=== PATIENT | female | born 1950 | race Caucasian/White ===

== ENCOUNTER 2023-03-09 08:29 | Outpatient (OUT) | payer MEDICARE, SELFPAY ==
--- NOTE | 2023-03-09 08:33 | MM_ITS ---
Patient: ZULLY HUANG Exam Date: 03/09/2023 : 1950 Gender:F Ordering : DR. JOSE GUERRERO . Admission #: [id number] Family : Order #: [id number] CLICK HERE TO VIEW EXAM RADIOLOGY REPORT PROCEDURE: MM TOMOSYNTHESIS SCREENING BI COMPARISON: MG MAMM SCREEN 3D [facility] CAD, 03/08/2022. MG MAMM SCREEN [facility] W CAD, 07/27/2019. MG MAMM SCREEN [facility] W CAD, 07/24/2018. MG MAMM [facility] SCRN W CAD DIG, 10/30/2010. INDICATIONS: Screening Calculator Name NCI Breast Cancer Risk Assessment Tool 5 Year Breast Cancer Risk 1.40% Lifetime Breast Cancer Risk 3.00% Personal Breast Cancer No Personal Ovarian Cancer No Treatments None Family Cancers Aunt-maternal with breast cancer at age 58. LOCATION: [facility] BREAST COMPOSITION: Scattered areas fibroglandular density. FINDINGS: DIAGNOSTIC CATEGORY 2--BENIGN FINDING: RIGHT BREAST: No significant suspicious finding. Scattered benign-appearing calcifications are present. No significant change has occurred. LEFT BREAST: No significant suspicious finding. Scattered benign-appearing calcifications are present. No significant change has occurred. RECOMMENDATIONS: ROUTINE MAMMOGRAM AND CLINICAL EVALUATION IN 12 MONTHS. PLEASE NOTE: A NORMAL MAMMOGRAM DOES NOT EXCLUDE THE POSSIBILITY OF BREAST CANCER. A CLINICALLY SUSPICIOUS PALPABLE LUMP SHOULD BE BIOPSIED. Dictated by: Arron Little M.D. on 03/09/2023 at 13:29 Approved by: Arron Little M.D. on 03/09/2023 at 13:31
== END 2023-03-09 08:30 | disposition home or self-care (01) ==
LOC: MAMMO 08:29
PROVIDERS: PCP Family Medicine; Visit Provider Family Medicine
DX: Z12.31 Encounter for screening mammogram for malignant neoplasm of breast (principal); Z80.3 Family history of malignant neoplasm of breast
CPT/HCPCS: 77063; 77067

== ENCOUNTER 2023-08-18 14:59 | Outpatient (OUT) | payer MEDICARE, SELFPAY ==
--- NOTE | 2023-08-18 15:04 | XR_ITS ---
[address] [address] Patient Name: ZULLY HUANG MRN: [id number] date: 1950 Sex: F Assigned Patient Location: [facility] Current Patient Location: Accession/Order Number: [id number] Exam Date: 08/18/2023 15:14 Report Date: 08/19/2023 10:28 At the request of: JUSTIN SANCHEZ Procedure: XR cervical spine 5V EXAM: XR cervical spine 5V HISTORY: neck pain, mid back pain COMPARISON: None. TECHNIQUE: 5 views Findings/impression: Retrolisthesis of C4 over C5 and C5 over C6 by 2 mm. Maintained vertebral body heights. Multilevel endplate degenerative changes, disc disease, and facet arthropathy of C5-C7. No acute fracture. Unremarkable soft tissues. Electronically authenticated by: MARTIN GÓMEZ Date: 08/19/2023 10:28
--- NOTE | 2023-08-18 15:05 | XR_ITS ---
[address] [address] Patient Name: ZULLY HUANG MRN: [id number] date: 1950 Sex: F Assigned Patient Location: [facility] Current Patient Location: [facility] Accession/Order Number: [id number] Exam Date: 08/18/2023 15:14 Report Date: 08/19/2023 18:26 At the request of: JUSTIN SANCHEZ Procedure: XR thoracic spine 2V EXAM: XR thoracic spine 2V HISTORY: neck pain, mid back pain COMPARISON: None. FINDINGS/IMPRESSION: 1. No acute fracture or dislocation 2. Moderate degeneration of the thoracic spine disc spaces, more prominent inferiorly. 3. Vertebral body height is preserved. 4. Upper abdominal bowel gas pattern is nonspecific and nonobstructive. 5. Cholecystectomy. Electronically authenticated by: DAYSI SAWANT Date: 08/19/2023 18:26
== END 2023-08-18 15:00 | disposition home or self-care (01) ==
LOC: RAD 15:00
PROVIDERS: PCP Family Medicine; Visit Provider Nurse Practitioner
DX: M54.2 Cervicalgia (principal); M54.6 Pain in thoracic spine
CPT/HCPCS: 72050; 72070

== ENCOUNTER 2023-08-31 09:28 | Outpatient (RCR) | payer MEDICARE, SELFPAY | END 2023-09-15 15:57 | disposition home or self-care (01) | LOC: PT 09:28 | PROVIDERS: PCP Family Medicine; Visit Provider Nurse Practitioner | DX: M54.2 Cervicalgia (principal); R93.7 Abnormal findings on diagnostic imaging of other parts of musculoskeletal system | CPT/HCPCS: 97110; 97161 ==

== ENCOUNTER 2023-09-05 09:39 | Outpatient (OUT) | payer MEDICARE, SELFPAY ==
--- NOTE | 2023-09-05 09:41 | MR_ITS ---
[address] [address] Patient Name: ZULLY HUANG MRN: [id number] date: 1950 Sex: F Assigned Patient Location: MRI Current Patient Location: MRI Accession/Order Number: [id number] Exam Date: 09/05/2023 10:00 Report Date: 09/05/2023 11:53 At the request of: JUSTIN SANCHEZ Procedure: MR cervical spine wo con EXAM: MR cervical spine wo con, MR thoracic spine wo con CLINICAL INDICATION: Dorsalgia M54.9, abnormal findings on imaging R93.7 COMPARISON: Cervical and thoracic spine radiographs 08/18/2023. TECHNIQUE/PROTOCOL: Standard noncontrast cervical and thoracic spine protocol MR performed (Sagittal STIR, T1, T2, axial gradient, T2-weighted images). FINDINGS: Pedicles: Congenitally shortened. Spinal Cord: Normal in caliber and signal. Epidural Space: Mild dorsal epidural lipomatosis from T10 to T12. Alignment: Normal craniocervical junction. Straightening of the physiologic cervical lordosis could relate at least part to patient positioning. Marrow Signal: Normal. Vertebral Body Heights: Maintained. Paraspinal Soft Tissues: Normal. Neck Soft Tissues: Normal. Spondylotic Changes: Multilevel spondylotic changes include diffuse disc desiccation and varying degrees of intervertebral disc height loss, osteophytic ridging, and facet/uncovertebral joint hypertrophy. Several small Schmorl's nodes throughout the thoracic spine. Small disc bulges at T8-T9, T9-T10, T10-T11, T11-T12, and T12-L1 mildly indent the ventral thecal sac. No high-grade spinal canal or foraminal narrowing at any thoracic level. C2-C3: No disc bulge or herniation. No high-grade spinal canal foraminal narrowing. C3-C4: Slight disc osteophyte complex indents the ventral thecal sac. Mild spinal canal narrowing. No high-grade foraminal narrowing. C4-C5: Small disc osteophyte complex indents the ventral thecal sac and slightly flattens the ventral spinal cord surface. Mild spinal canal narrowing. Advanced right and moderate left foraminal narrowing is contributed to by uncovertebral and facet joint hypertrophy. C5-C6: Small disc osteophyte complex indents the ventral thecal sac. Moderate spinal canal narrowing. Advanced bilateral foraminal narrowing is contributed to by uncovertebral and facet joint hypertrophy. C6-C7: Disc osteophyte complex indents the ventral thecal sac and flattens the ventral spinal cord surface. Moderate spinal canal narrowing. Advanced bilateral foraminal narrowing is contributed to by uncovertebral and facet joint hypertrophy. C7-T1: No disc bulge or herniation. No high-grade spinal canal or foraminal narrowing. Mild bilateral facet hypertrophy. MR/MR cervical spine wo con IMPRESSION: 1. Multilevel cervicothoracic spondylotic changes without high-grade spinal canal narrowing at any level. These are superimposed on congenitally shortened cervical pedicles. 2. Spinal canal narrowing is at most moderate at C5-C6. 3. Foraminal narrowing is advanced on the right at C4-C5 as well as bilaterally at C5-C6 and C6-C7, contributed to by uncovertebral and facet joint hypertrophy. Electronically authenticated by: MALU MAST Date: 09/05/2023 11:53
--- OUTSIDE RECORDS SUMMARY | 2023-09-05 09:42 | XMS_ITS | CCD ---
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 depression with risk score 0, negative findings. Patient has been reminded to notify the provider if there would be a change or concerns with symptoms with fear, unable to sleep, worrying too much or feeling down and/or sad with lost of interest with daily activities. Will continue to monitor with screening yearly during Medicare wellness visits. 2. Other problems related to lifestyle (Z72.89: Other problems related to lifestyle) Information provided and discussed with CDC recommendation that everyone born from 7272[birth year]019 get tested for Hepatitis C. This is also referred to as baby boomers and are 5 times more likely to be at risk. Transmission of Hepatitis C was at its highest. Medicare does cover a once in a lifetime testing if a patient is non-symptomatic. Blood work has been ordered, will review results with PCP. 3. HTN (hypertension) (I10: Essential (primary) hypertension) Patient is taking losartan-hctz daily as directed. Does monitor BP pressure at home. HTN stoplight reviewed with BP goal to be <140/90. Reviewed different factors that can alter blood pressure readings. Education handout provided with s/s to monitor for and report to provider. Patient is encouraged to increase portions of fruit, vegetables, fiber and increase exercise as much as tolerable. Reviewed importance with monitoring foods high in salt content and encouraged to limit intake, if unsure encouraged to discuss with their PCP. Encouraged to eat more chicken, fish and lean white meats and limits red meats in diet. Discussed importance with keeping BP under good control to reduce CVA risk factors. CMP completed in office today. Will continue to f/u with PCP during office visits and as needed. 4. Pure hypercholesterolemia (E78.00: Pure hypercholesterolemia, unspecified) Reviewed healthy lifestyle with low fat diet and exercise regimen. When you are overweight our body produces more lipids. Risk als (more content not included)... [facility] Comment on above: Result Comment: Elec tronically Signed By: Liana Simental\.br\Date and Time Signed: 04/27/23 09:12 EDT\.br\Electronically Co-Signed By: Mike Chavez\.br\Date and Time Co-Signed: 04/26/23 11:38 EDT Patient Correspondenceon Patient Correspondence [id number] :127 [facility] Ambulatory Visit Summaryon 0 04-26-2023 Ambulatory Visit Summary STAS HUANG Annette :1950 Visit Date:04/26/2023 Ambulatory Visit Instructions Your Diagnosis Annual visit for general adult medical examination without abnormal findings Other problems related to lifestyle HTN (hypertension) Pure hypercholesterolemia GERD (gastroesophageal reflux disease) Morbid obesity Adult BMI 38.0-38.9 kg/sq m Your Care Team Attending Physician - Daquan Hager MD Primary Care Physician - Daquan Hager MD. This Is Your Medications List Non-Formulary Medication (Misc Medication) aspirin (Aspir-Low) atorvastatin (atorvastatin 10 mg Tab) betamethasone topical (betamethasone Top valerate 0.1% Crm 15 gram) cholecalciferol (Vitamin D3 5000 intl units (125 mcg) oral tab) cyclobenzaprine (cyclobenzaprine 10 mg Tab) diclofenac (diclofenac sodium 75 mg Oral EC Tab) hydrochlorothiazide-los shorty (hydrochlorothiazide-lo sartan 12.5 mg-100 mg oral tablet) multivitamin (Multi Vitamin+) Procedures Performed Colonoscopy (2021), Cataract surgery, Cholecystectomy, Glaucoma surgery, Hysterectomy, KAZ BSO - Total abdominal hysterectomy and bilateral salpingo-oophorectomy. Discharge Vitals Heart Rate (Peripheral) 68 Blood Pressure 136/80 Height 154 cm Height 61 in Weight 91.4 kg Weight 201.08 lb BMI 38.54 What to do next Scheduled Follow-Up Appointments Tuesday 9:30 AM EDT Where: [facility] Auth for Release of Medical Recordson 04-26-2023 Auth for Release of Medical Records [id number] :127 Normal [facility] CHEMISTRYOrdered By: SYSTEM SYSTEM on 04-26-2023 Albumin [Mass/Vol] 3.6 g/dL Normal 3.3 - 5.0 gm/dL [facility] Albumin/Globulin [Mass ratio] 1.1 {ratio} Normal 1.1 - 2.2 [facility] ALP [Catalytic activity/Vol] 68 [iU]/d Normal 21 - 98 Int._Unit/L [facility] ALT No additional P-5'-P [Catalytic activity/Vol] 20 [iU]/d Normal 6 - 46 Int._Unit/L [facility] Anion gap [Moles/Vol] 11 mmol/L Normal 6 - 16 mEq/L [facility] AST [Catalytic activity/Vol] 27 [iU]/d Normal 5 - 43 Int._Unit/L [facility] Bilirubin [Mass/Vol] 0.5 mg/dL Normal 0.0 - 1 .1 mg/dL [facility] Calcium [Mass/Vol] 9.0 mg/dL Normal 8.9 - 11. 1 mg/dL [facility] Chloride [Moles/Vol] 104 mmol/L Normal 101 - 1 11 mmol/L [facility] Cholesterol [Mass/Vol] 138 mg/dL Normal 120 - 200 mg/dL [facility] Cholesterol in HDL [Mass/Vol] 54 mg/dL Invalid Interpretation Code [facility] Cholesterol in LDL [Mass/Vol] 69 mg/dL Normal <=129mg/dL [facility] Cholesterol in VLDL [Mass/Vol] 20 mg/dL Normal 7 - 40 mg/dL [facility] CO2 [Moles/Vol] 26 mmol/L Normal 21 - 31 mmol/L [facility] Creatinine [Mass/Vol] 0.9 mg/dL Normal 0.5 - 1.3 mg/dL [facility] GFR/1.73 sq M.predicted among non-blacks MDRD (S/P/Bld) [Vol rate/Area] 67 mL/min/1.73 m2 Normal >=59mL/min/1 .73 m2 [facility] Chem S Globulin (S) [Mass/Vol] 3.4 g/dL Normal 1.4 - 4.0 gm/dL [facility] Glucose [Mass/Vol] 91 mg/dL Normal 55 - 199 mg/dL [facility] Potassium [Moles/Vol] 3.9 mmol/L Normal 3.5 - 5.3 mmol/L [facility] Protein [Mass/Vol] 7.0 g/dL Normal 6.0 - 7.8 gm/dL [facility] Sodium [Moles/Vol] 137 mmol/L Normal 135 - 145 mmol/L [facility] Triglyceride [Mass/Vol] 98 mg/dL Normal <=149mg/dL [facility] Remisol Urea nitrogen [Mass/Vol] 14 mg/dL Normal 5 - 21 mg/dL [facility] Remisol Urea nitrogen/Creatinine [Mass ratio] 16 mg/mg Normal 10 - 20 [facility] Remisol CMPon 04-26-2023 Albumin [Mass/Vol] 3.6 g/dL Normal 3.3-5.0 [facility] Comment on above: Performed By: #### 1 [id number], 2244794, [id number], 7038820, [id number] ####[facility] [address] [place] [address] Albumin/Globulin (S) [Mass conc ratio] 1.1 Normal 1.1-2.2 [facility] Comment on above: Performed By: #### 1 3793852, 9371467, [id number], 4054184, [id number] ####[facility] [address] [place] [address] ALP [Catalytic activity/Vol] 68 Int._Unit/L Normal 21-98 [facility] Comment on above: Performed By: #### 1 3950212, 3948557, [id number], 1379861, [id number] ####[facility] [address] [place] [address] ALT No additional P-5'-P [Catalytic activity/Vol] 20 Int._Unit/L Normal 6-46 [facility] Comment on above: Performed By: #### 1 3295931, 9576798, [id number], 1724218, [id number] ####[facility] [address] [place] [address] Anion gap [Moles/Vol] 11 mmol/L Normal 6-16 [facility] Comment on above: Performed By: #### 1 3006872, 9808573, [id number], 1738216, [id number] ####[address] [place] [address] AST [Catalytic activity/Vol] 27 Int._Unit/L Normal 5-43 [facility] Comment on above: Performed By: #### 1 9981616, 8886093, [id number], 3420992, [id number] ####[address] [place] [address] Bilirubin [Mass/Vol] 0.5 mg/dL Normal 0.0-1.1 [facility] Comment on above: Performed By: #### 1 5652536, 3963729, [id number], 3264880, [id number] ####[address] [place] [address] Calcium [Mass/Vol] 9.0 mg/dL Normal 8.9-11.1 [facility] Comment on above: Performed By: #### 1 9413448, 1432067, 6333141688, 6120476, [id number] ####[facility] [address] [place] [address] Chloride [Moles/Vol] 104 mmol/L Normal 101-111 [facility] Comment on above: Performed By: #### 1 8935719, 6251067, 7262756330, 3474211, [id number] ####[facility] [address] [place] [address] CO2 [Moles/Vol] 26 mmol/L Normal 21-31 [facility] Comment on above: Performed By: #### 1 7416064, 6747063, 0747902379, 7125370, [id number] ####[facility] [address] [place] [address] Creatinine [Mass/Vol] 0.9 mg/dL Normal 0.5-1.3 [facility] Comment on above: Performed By: #### 1 1044580, 3683041, [id number], 7479383, [id number] ####[facility] [address] [place] [address] Globulin (S) [Mass/Vol] 3.4 g/dL Normal 1.4-4.0 [facility] Comment on above: Performed By: #### 1 7588193, 6517813, 2368713514, 6767423, 2810181078 ####[facility] [address] [place] [address] Glucose [Mass/Vol] 91 mg/dL Normal 55-199 [facility] Comment on above: Result Comment: If t his glucose result represents a fasting glucose, interpretation should refer to the following reference range: 55-99 mg/dL Performed By: #### 1 4520077, 0476931, 2044741214, 9702387, [id number] ####[facility] [address] [place] [address] Potassium [Moles/Vol] 3.9 mmol/L Normal 3.5-5.3 [facility] Comment on above: Performed By: #### 1 3815631, 5284010, 5237253487, 0379127, 3403696124 ####[facility] [address] [place] [address] Protein [Mass/Vol] 7.0 g/dL Normal 6.0-7.8 [facility] Comment on above: Performed By: #### 1 7552087, 5197205, 3615384631, 1002712, 7319462530 ####[facility] [address] [place] [address] Sodium [Moles/Vol] 137 mmol/L Normal 135-145 [facility] Comment on above: Performed By: #### 1 8745512, 6466192, 6829227693, 9328945, [id number] ####[facility] [address] [place] [address] Urea nitrogen [Mass/Vol] 14 mg/dL Normal 5-21 [facility] Comment on above: Performed By: #### 1 2972099, 1576583, 3705052886, 4744585, [id number] ####[facility] [address] [place] [address] Urea nitrogen/Creatinine [Mass ratio] 16 No Units Normal 10-20 [facility] Comment on above: Performed By: #### 1 6870299, 3987934, 0835592799, 2514836, [id number] ####[facility] [address] [place] [address] Lipid Panelon 04-26-2023 Cholesterol [Mass/Vol] 138 mg/dL Normal 120-200 [facility] Comment on above: Performed By: #### 1 7422289, 3062804, 1713955368, 2532512, 9566247821 ####[facility] [address] [place] [address] Cholesterol in HDL [Mass/Vol] 54 mg/dL Invalid Interpretation Code [facility] Comment on above: Result Comment: HDL > or equal to 60 mg/dL: Low cardiovascular risk HDL < 40 mg/dL : High cardiovascular risk Performed By: #### 1 9867474, 8224462, 4303730324, 2405980, [id number] ####[facility] [address] [facility] [place] [place] [address] Cholesterol in LDL [Mass/Vol] 69 mg/dL Normal <=129 [facility] Comment on above: Performed By: #### 1 6468399, 2278984, 8277471746, 8563826, [id number] ####[facility] [address] [facility] [place] [address] Cholesterol in VLDL [Mass/Vol] 20 mg/dL Normal 7-40 [facility] Comment on above: Performed By: #### 1 3186646, 0328813, 2324437624, 0482795, [id number] ####[facility] [address] [place] [address] Triglyceride [Mass/Vol] 98 mg/dL Normal <=149 [facility] Comment on above: Performed By: #### 1 7263147, 2675636, 3091105231, 9157867, 4585429975 ####[facility] [address] [place] [address] Patient Educationon 04-26-20 23 Patient Education Caregiving Fall Prevention in the Home, Adult Falls can cause injuries and affect people of all ages. There are many simple things that you can do to make your home safe and to help prevent falls. Ask for help when making these changes, if needed. What actions can I take to prevent falls? General instructions ? Use good lighting in all rooms. Replace any light bulbs that burn out, turn on lights if it is dark, and use night-lights. ? Place frequently used items in irzp-yj-jncvj places. Lower the shelves around your home if necessary. ? Set up furniture so that there are clear paths around it. Avoid moving your furniture around. ? Remove throw rugs and other tripping hazards from the floor. ? Avoid walking on wet floors. ? Fix any uneven floor surfaces. ? Add color or contrast paint or tape to grab bars and handrails in your home. Place contrasting color strips on the first and last steps of staircases. ? When you use a stepladder, make sure that it is completely opened and that the sides and supports are firmly locked. Have someone hold the ladder while you are using it. Do not climb a closed stepladder. ? Know where your pets are when moving through your home. What can I do in the bathroom? ? Keep the floor dry. Immediately clean up any water that is on the floor. ? Remove soap buildup in the tub or shower regularly. ? Use nonskid mats or decals on the floor of the tub or shower. ? Attach bath mats securely with double-sided, nonslip rug tape. ? If you need to sit down while you are in the shower, use a plastic, nonslip stool. ? Install grab bars by the toilet and in the tub and shower. Do not use towel bars as grab bars. What can I do in the bedroom? ? Make sure that a bedside light is easy to reach. ? Do not use oversized bedding that reaches the floor. ? Have a firm chair that has side arms to use for getting dressed. What can I do in the kitchen? ? Clean up any spills right away. ? If you need to reach for something above you, use a sturdy step stool that has a grab bar. ? Keep electrical cables out of the way. ? Do not use floor cambodian or wax that makes floors slippery. If you must use wax, make sure that it is non-skid floor wax. What can I do with my stairs? ? Do not leave any items on the stairs. ? Make sure that you have a light switch at the top and the bottom of the stairs. Have them installed if you do not have them. ? Make sure that there are handrails on both sides of the stairs. Fix handrails that are broken or loose. Make sure that handrails are as long as the staircases. ? Install non-slip stair treads on all stairs in your home. ? Avoid having throw rugs at the top or bottom of stairs, or secure the rugs with carpet tape to prevent them from moving. ? Choose a carpet design that does not hide the edge of steps on the stairs. ? Check any carpeting to make sure that it is firmly attached to the stairs. Fix any carpet that is loose or worn. What can I do on the outside of my home? ? Use bright outdoor lighting. ? Regularly repair the edges of walkways and driveways and fix any cracks. ? Remove high doorway thresholds. ? Trim any shrubbery on the main path into your home. ? Regularly check that handrails are securely fastened and in good repair. Both sides of all steps should have handrails. ? Install guardrails along the edges of any raised decks or porches. ? Clear walkways of debris and clutter, including tools and rocks. ? Have leaves, snow, and ice cleared regularly. ? Use sand or salt on walkways during winter months. ? In the garage, clean up any spills right away, including grease or oil spills. What other actions can I take? ? Wear closed-toe shoes that fit well and support your feet. Wear shoes that have rubber soles or low heels. ? Use mobility aids as needed, such as canes, walkers, scooters, and crutches. ? Review your medicines with your health care provider. Some medicines can cause dizziness or changes in blood pressure, which increase your risk of falling. Talk with your health care provider about other ways that you can decrease your risk of falls. This may include working with a physical therapist or strainer tender to improve your strength, balance, and endurance. Where to find more information ? Centers for Disease Control and Prevention, [place]: www.cdc.gov ? National [place] on Aging: www.celio.nih.gov Contact a health care provider if: ? You are afraid of falling at home. ? You feel weak, drowsy, or dizzy at home. ? You fall at home. Summary ? There are many simple things that you can do to make your home safe and to help prevent falls. ? Ways to make your home safe include removing tripping hazards and installing grab bars in the bathroom. ? Ask for help when making these changes in your home. This information is not intended to replace advice given to you by your health ca (more content not included)... Normal [facility] Screenson 04-26-2023 Screens [id number] D:127 Normal [facility] eGFRon 04-26-2023 GFR/1.73 sq M.predicted among non-blacks MDRD (S/P/Bld) [Vol rate/Area] 67 mL/min/1.73 m2 Normal >=59 [facility] Comment on above: Order Comment: Order added by Discern Expert. Result Comment: Panel Beater kasandra kidney disease could be indicated at eGFR's of less than 60 mL/min/1.73m2. Kidney failure is indicated at less than 15 mL/min/1.73m2. Performed By: #### 1 8227837, 7815453, [id number], 6773961, [id number] ####[facility] [address] [place] [address] Outside Mammographyon 2022 Outside Mammography [id number] D:127 Normal [facility] Ambulatory Visit Summaryon 0 11-15-2022 Ambulatory Visit Summary STAS HUANG :1950 Visit Date:11/15/2022 Ambulatory Visit Instructions Your Diagnosis BMI 40.0-44.9, adult Your Care Team Attending Physician - Feliciano CENTENO, Liana Lynn Primary Care Physician - PAUL MCINYTRE, YOLANDA Sánchez This Is Your Medications List atorvastatin (atorvastatin 10 mg Tab) betamethasone topical (betamethasone Top valerate 0.1% Crm 15 gram) cholecalciferol (Vitamin D3 5000 intl units (125 mcg) oral tab) cyclobenzaprine (cyclobenzaprine 10 mg Tab) diclofenac (diclofenac sodium 75 mg Oral EC Tab) hydrochlorothiazide-los shorty (hydrochlorothiazide-lo sartan 12.5 mg-100 mg oral tablet) losartan (losartan 100 mg Tab) omeprazole (omeprazole 20 mg Cap-DR) Procedures Performed Colonoscopy (2021), Cholecystectomy, Hysterectomy, KAZ BSO - Total abdominal hysterectomy and bilateral salpingo-oophorectomy. Discharge Vitals Heart Rate (Peripheral) 69 Respiratory Rate 16 Blood Pressure 136/80 Height 156.46 cm Height 62 in Weight 100.8 kg Weight 221.76 lb BMI 41.18 Medications What How Much When Instructions Unchanged atorvastatin (atorvastatin 10 mg Tab) 1 Tablets By Mouth Every day Unchanged betamethasone topical (betamethasone Top valerate 0.1% Crm 15 gram) 1 Application Topical 2 times a day Unchanged cholecalciferol (Vitamin D3 5000 intl units (125 mcg) oral tab) By Mouth Every day Unchanged cyclobenzaprine (cyclobenzaprine 10 mg Tab) 1 Tablets By Mouth 3 times a day as needed for for spasm Unchanged diclofenac (diclofenac sodium 75 mg Oral EC Tab) 1 Tablets By Mouth 2 times a day Unchanged hydrochlorothiazide-los shorty (hydrochlorothiazide-lo sartan 12.5 mg-100 mg oral tablet) 1 Tablets By Mouth Every day Unchanged losartan (losartan 100 mg Tab) 1 Tablets By Mouth At bedtime 1/ 2- 1 at bedtime Unchanged omeprazole (omeprazole 20 mg Cap-DR) 1 Capsules By Mouth Every day Medications and Immunizations Administered Not Given influenza virus vaccine, inactivated, Postpone due to refusal SARS-CoV-2 mRNA (tozinameran 5y-11y) vac, Postpone due to refusal Allergies Reglan (Unknown) Lipitor (Unknown) Mobic (Unknown) penicillin (Unknown) Problems Ongoing - Any problem that you are currently receiving treatment for. Fatigue GERD (gastroesophageal reflux disease) HTN (hypertension) Obstipation Pure hypercholesterolemia Normal [facility] Family Medicine Office/Clini c Noteon 11-15-2022 Family Medicine Office/Clinic Note Chief Complaint insurance testing shows PAD and she's concerned about it HPI Staff Stas is a 72 year old female who presents with concerns she has PAD from an insurance test. we do not have this results and she left her report at home Colon: 04/26/2022 Dr Starr Flu/Covid: refused both History of Present Illness pt presents today with concern that she had a medicare nurse come to her house and her results showed that she was + for PAD. Review of Systems PHQ Score Initial Depression Screen Score: 0 ROS - Provider Constitutional: no fever, no chills, no sweats, no fatigue Respiratory: no shortness of breath, no cough, no orthopnea, no wheezing. Cardiovascular: no chest pain, no palpitations, no edema. Neurologic: no headache, no dizziness, no numbness, no weakness. Physical Exam Vitals & Measurements HR: 69(Peripheral) RR: 16 BP: 136/80 SpO2: 100% HT: 62 in HT: 156.46 cm WT: 100.8 kg WT: 221.76 lb BMI: 41.18 General: alert, no acute distress ENMT: oral mucosa moist, no pharyngeal erythema or exudate Cardiovascular: regular rate and rhythm, normal peripheral perfusion Respiratory: Lungs CTA, respirations non labored Extremities: no deformity, no trauma Neurological: oriented x 4, LOC appropriate for age, CN II-XII intact, motor strength equal & normal bilaterally, speech normal Assessment/Plan 1. Abdominal pain (R10.9: Unspecified abdominal pain) pt presents today mostly concerned that she had a medicare wellness visit at her home and was informed she had peripheral artery disease. she also states she has been struggling with diarrhea and constipation since having a colonoscopy done. she feels she has that a little better controlled now. but she does still have abdominal pain when she eats certain things. discussed referral to GI. but she would like to hold off for now. discussed testing for PAD. Filament test in office WNL. pt denies any claudication pain. cholesterol is well controlled. reassurance provided. all questions answered. RTC as needed 2. BMI 40.0-44.9, adult (Z68.41: Body mass index [BMI] 40.0-44.9, adult) BMI education complete Ordered: Body Mass Index (BMI) documented 3008F Current tobacco non-user 1036F Depression Screening Negative 3352F Influenza immunization status assessed 1030F Most recent diastolic blood pressure 80-89 mm Hg 3079F Patient screen for fall risk: no falls in last year or 1 fall with no injury in last year 1101F Systolic BP 130-139 mm Hg (Most Recent) 3075F Follow-up No qualifying data available Problem List/Past Medical History Ongoing Fatigue GERD (gastroesophageal reflux disease) HTN (hypertension) Obstipation Pure hypercholesterolemia Historical No qualifying data Procedure/Surgical History Colonoscopy (2021), Cholecystectomy, Hysterectomy, KAZ BSO - Total abdominal hysterectomy and bilateral salpingo-oophorectomy. Medications atorvastatin 10 mg Tab, 10 mg= 1 tab(s), Oral, Daily betamethasone Top valerate 0.1% Crm 15 gram, 1 karen, Topical, BID cyclobenzaprine 10 mg Tab, 10 mg= 1 tab(s), Oral, TID, PRN diclofenac sodium 75 mg Oral EC Tab, 75 mg= 1 tab(s), Oral, BID hydrochlorothiazide-los shorty 12.5 mg-100 mg oral tablet, 1 tab(s), Oral, Daily losartan 100 mg Tab, 100 mg= 1 tab(s), Oral, Bedtime, Not taking omeprazole 20 mg Cap-DR, 20 mg= 1 cap(s), Oral, Daily Vitamin D3 5000 intl units (125 mcg) oral tab, Oral, Daily Allergies Reglan (Unknown) Lipitor (Unknown) Mobic (Unknown) penicillin (Unknown) Social History Tobacco Former smoker, quit more than 30 days ago Tobacco Use:. Cigarettes, 11/15/2022 Family History Diabetes mellitus type 2: Mother. Heart failure: Mother. Immunizations Vaccine Date Status Comments influenza virus vaccine, inactivated - Not Given Postpone due to refusal SARS-CoV-2 mRNA (tozinameran 5y-11y) vac - Not Given Postpone due to refusal Normal [facility] Comment on above: Result Comment: Elec tronically Signed By: Liana Simental\Date and Time Signed: 11/15/22 11:55 EDT XR ABD FLAT_UPon 06-01-2022 XR ABD FLAT_UP EXAMINATION: XR ABD FLAT_UP HISTORY: Constipation ; unable to have bowel movement post colonoscopy COMPARISON: No relevant comparison available. FINDINGS: BOWEL GAS PATTERN: Moderate amount of stool throughout the bowel. No abnormal dilation or suspicious fluid levels. FREE AIR: None. CALCIFICATIONS: None significant. BONES: No fracture or visible bone lesion. OTHER: Negative. IMPRESSION: 1. No bowel obstruction or ileus. 2. Moderate stool burden. Electronically authenticated by: JIMI BARRIOS Date: 2022-06-01 12:34 Normal The [facility] CBC AUTO DIFFon 05-07-2022 BASO # 0.1 103/ul Normal 0.0-0.1 [facility] Comment on above: Performed By: #### C BC #### [facility] [address] [address] [address] Maggie Enriquez Basophils/100 WBC (Bld) 1.1 % Normal 0.2-2.0 [facility] Comment on above: Performed By: #### C BC #### [facility] [address] [address] [address] Maggie Enriquez EO # 0.2 103/ul Normal 0.0-0.7 [facility] Comment on above: Performed By: #### C BC #### [facility] [address] [address] [address] Maggie Enriquez Eosinophils/100 WBC (Bld) 2.8 % Normal 0.9-7.0 [facility] Comment on above: Performed By: #### C BC #### [facility] [address] [address] [address] Maggie Enriquez Erythrocyte distribution width (RBC) [Ratio] 12.5 % Normal 11.0-15.0 [facility] Comment on above: Performed By: #### C BC #### [facility] [address] [place] [address] Dr. Maggie Enriquez Hematocrit (Bld) [Volume fraction] 37.0 % Normal 36.0-48.0 [facility] Comment on above: Performed By: #### C BC #### [facility] [address] [place] [address] Dr. Maggie Enriquez Hemoglobin (Bld) [Mass/Vol] 12.1 g/dL Normal 12.0-16.0 [facility] Comment on above: Performed By: #### C BC #### [facility] [address] [place] [address] Dr. Maggie Enriquez IG # 0.02 10e3/ul Normal 0.00-0.03 [facility] Comment on above: Performed By: #### C BC #### [facility] [address] [place] [address] Dr. Maggie Enriquez IG % 0.3 % Normal 0.0-0.5 [facility] Comment on above: Performed By: #### C BC #### [facility] [address] [place] [address] Dr. Maggie Enriquez LYMPH # 2.1 103/ul Normal 1.2-3.8 [facility] Comment on above: Performed By: #### C BC #### [facility] [address] [place] [address] Dr. Maggie Enriquez Lymphocytes/100 WBC (Bld) 32.7 % Normal 20.5-60.0 [facility] Comment on above: Performed By: #### C BC #### [facility] [address] [place] [address] Dr. Maggie Enriquez MANUAL DIFF REQ NO Normal [facility] Comment on above: Performed By: #### C BC #### [facility] [address] [place] [address] Dr. Maggie Enriquez MCH (RBC) [Entitic mass] 29.0 pg Normal 26.7-34.0 [facility] Comment on above: Performed By: #### C BC #### [facility] [address] [address] [address] Maggie Enriquez MCHC (RBC) [Mass/Vol] 32.7 g/dL Normal 29.9-35.2 [facility] Comment on above: Performed By: #### C BC #### [facility] [address] [place] [address] Dr. Maggie Enriquez MCV (RBC) [Entitic vol] 88.7 fL Normal 81.0-99.0 [facility] Comment on above: Performed By: #### C BC #### [facility] [address] [place] [address] Dr. Maggie Enriquez MONO # 0.6 103/ul Normal 0.3-0.8 [facility] Comment on above: Performed By: #### C BC #### [facility] [address] [place] [address] Dr. Maggie Enriquez Monocytes/100 WBC (Bld) 9.4 % Normal 1.7-12.0 [facility] Comment on above: Performed By: #### C BC #### [facility] [address] [place] [address] Dr. Maggie Enriquez NEUT # 3.5 103/ul Normal 1.4-6.5 [facility] Comment on above: Performed By: #### C BC #### [facility] [address] [place] [address] Dr. Maggie Enriquez Neutrophils/100 WBC (Bld) 53.7 % Normal 43.0-75.0 [facility] Comment on above: Performed By: #### C BC #### [facility] [address] [place] [address] Dr. Maggie Enriquez Platelet mean volume (Bld) [Entitic vol] 9.5 fL Normal 9.5-13.5 The [facility] Comment on above: Performed By: #### C BC #### [facility] [address] [place] [address] Dr. Maggie Enriquez PLT 254 103/ul Normal 150-450 The [facility] Comment on above: Performed By: #### C BC #### [facility] [address] [place], [place] [address] Dr. Maggie Enriquez RBC 4.17 106/ul Critically low 4.20-5.40 [facility] Comment on above: Performed By: #### C BC #### [facility] [address] [place], [place] [address] Dr. Maggie Enriquez WBC 6.5 103/ul Normal 4.0-11.0 [facility] Comment on above: Performed By: #### C BC #### [facility] [address] [place], [place] [address] Dr. Maggie Enriquez COVID-19 Antigenon 2 COVID-19 Antigen Healthcare Worker?: N Reference Range: Negative Negative results, from patients with symptom onset beyond five days, should be treated as presumptive and confirmation with a molecular assay, if necessary, for patient management, may be performed. Negative results do not rule out COVID-19 and should not be used as the sole basis for treatment or patient management decisions, including infection control decisions. Negative results should be considered in the context of a patient's recent exposures, history and the presence of clinical signs and symptoms consistent with COVID-19. The [facility] SARS Antigen FELIBERTO does not differentiate between SARS-CoV and SARS-CoV-2. This test was developed and its performance characteristic determined by [employer] and validated at [facility]. This test has not been FDA cleared or approved. This test has been authorized by FDA under an Emergency Use Authorization (EUA). This test has been validated in accordance with the FDA's Guidance Document (Policy for Diagnostics Testing in Laboratories Certified to Perform High Complexity Testing under CLIA prior to Emergency Use Authorization for Coronavirus Disease-2019 during the Public Health Emergency) issued on November 29, 2019. This test is only authorized for the duration of time the declaration that circumstances exist justifying the authorization of the emergency use of in vitro diagnostic tests for detection of SARS-CoV-2 virus and/or diagnosis of COVID-19 infection under section 564(b)(1) of the Act, 21 U.S.C. 360bbb-3(b)(1), unless the authorization is terminated or revoked sooner. SARS-CoV+SARS-CoV-2 (COVID-19) Ag [Presence] in Respiratory specimen by Rapid immunoassay Negative for SARS Antigen by FELIBERTO PERFORMED BY: [place] [address] PATHOLOGIST BANKRUPTCY MANAGER TIM SUERO M.D. Normal [facility] Comment on above: Performed By: #### S OFELIDAEG, COVID-19 AQUILINO #### [facility] [address] [place] [address] COVID-19 SOFIAOrdered By: Kati Starr on 04-22-2022 SARS-CoV+SARS-CoV-2 (COVID-19) Ag IA.rapid Ql (Resp) Negative Negative [facility] Comment on above: This is a duplicate [facility] SARS Antigen (FELIBERTO) result to be used for statistical tracking purpose only. No Panel InformationOrdered By: Delfin Starr on 04-22-2022 SARS Antigen (LFIA) [facility] Aqu[facility]ino Ag Negativeon 04-22-20 Aquilino Ag Negative Negative Normal Negative [facility] Comment on above: Result Comment: This is a duplicate Aquil[place] SARS Antigen (FELIBERTO) result to be used for statistical tracking purpose only. PERFORMED BY: [place] [phone] PATHOLOGIST BANKRUPTCY MANAGER TIM SUERO M.D. Performed By: #### S OFFRANKLYN, COVID-19 AQUILINO #### [facility] [address] [place] [address] MG MAMM SCREEN 3D EDINSON CADon 03-08-2022 MG MAMM SCREEN 3D EDINSON CAD Patient: STAS HUANG Exam Date: 03/08/2022 : 1950 Gender:F Ordering : DR YOLANDA SAUCEDO . Admission #: [id number] Family : Order #: [id number] CLICK HERE TO VIEW EXAM RADIOLOGY REPORT PROCEDURE: MAMMOGRAM SCREENING 3D BILATERAL CAD COMPARISON: MG MAMM SCREEN EDINSON W CAD, 07/24/2018. MG MAMM SCREEN EDINSON W CAD, 07/27/2019. INDICATIONS: Screening mammography Calculator Name NCI Breast Cancer Risk Assessment Tool 5 Year Breast Cancer Risk 1.40% Lifetime Breast Cancer Risk 3.20% Personal Breast Cancer No Personal Ovarian Cancer No Treatments None Family Cancers Aunt-maternal with breast cancer at age 58. LOCATION: The [facility] BREAST COMPOSITION: Scattered areas fibroglandular density. FINDINGS: DIAGNOSTIC CATEGORY 1--NEGATIVE. NO CHANGE FROM COMPARISON ASSESSMENT. Scattered benign-appearing calcifications are present. Scattered benign-appearing lymph nodes are present. RIGHT BREAST: No significant suspicious finding. LEFT BREAST: No significant suspicious finding. RECOMMENDATIONS: ROUTINE MAMMOGRAM AND CLINICAL EVALUATION IN 12 MONTHS. PLEASE NOTE: A NORMAL MAMMOGRAM DOES NOT EXCLUDE THE POSSIBILITY OF BREAST CANCER. A CLINICALLY SUSPICIOUS PALPABLE LUMP SHOULD BE BIOPSIED. Dictated by: Abe Hayden MD on 03/08/2022 at 12:43 Approved by: Abe Hayden MD on 03/08/2022 at 12:46 Normal The [facility] CBC AUTO DIFFon 03-02-2022 BASO # 0.1 103/ul Normal 0.0-0.1 [facility] Comment on above: Performed By: #### C BC #### [facility] [address] [place] [address] Dr. Maggie Enriquez Basophils/100 WBC (Bld) 0.9 % Normal 0.2-2.0 [facility] Comment on above: Performed By: #### C BC #### [facility] [address] [place] [address] Dr. Maggie Enriquez EO # 0.1 103/ul Normal 0.0-0.7 [facility] Comment on above: Performed By: #### C BC #### [facility] [address] [place] [address] Dr. Maggie Enriquez Eosinophils/100 WBC (Bld) 2.2 % Normal 0.9-7.0 [facility] Comment on above: Performed By: #### C BC #### [facility] [address] [place] [address] Dr. Maggie Enriquez Erythrocyte distribution width (RBC) [Ratio] 13.0 % Normal 11.0-15.0 [facility] Comment on above: Performed By: #### C BC #### [facility] [address] [place] [address] Dr. Maggie Enriquez Hematocrit (Bld) [Volume fraction] 38.7 % Normal 36.0-48.0 [facility] Comment on above: Performed By: #### C BC #### [facility] [address] [place] [address] Dr. Maggie Enriquez Hemoglobin (Bld) [Mass/Vol] 12.4 g/dL Normal 12.0-16.0 [facility] Comment on above: Performed By: #### C BC #### [facility] [address] [place] [address] Dr. Maggie Enriquez IG # 0.02 10e3/ul Normal 0.00-0.03 [facility] Comment on above: Performed By: #### C BC #### [facility] [address] [place] [address] Dr. Maggie Enriquez IG % 0.3 % Normal 0.0-0.5 [facility] Comment on above: Performed By: #### C BC #### [facility] [address] [place] [address] Dr. Maggie Enriquez LYMPH # 2.0 103/ul Normal 1.2-3.8 [facility] Comment on above: Performed By: #### C BC #### [facility] [address] [place] [address] Dr. Maggie Enriquez Lymphocytes/100 WBC (Bld) 33.9 % Normal 20.5-60.0 [facility] Comment on above: Performed By: #### C BC #### [facility] [address] [place] [address] Dr. Maggie Enriquez MANUAL DIFF REQ NO Normal [facility] Comment on above: Performed By: #### C BC #### [facility] [address] [place] [address] Dr. Maggie Enriquez MCH (RBC) [Entitic mass] 29.2 pg Normal 26.7-34.0 [facility] Comment on above: Performed By: #### C BC #### [facility] [address] [place] [address] Dr. Maggie Enriquez MCHC (RBC) [Mass/Vol] 32.0 g/dL Normal 29.9-35.2 [facility] Comment on above: Performed By: #### C BC #### [facility] [address] [address] [address] Maggie Enriquez MCV (RBC) [Entitic vol] 91.1 fL Normal 81.0-99.0 [facility] Comment on above: Performed By: #### C BC #### [facility] [address] [address] [address] Maggie Enriquez MONO # 0.5 103/ul Normal 0.3-0.8 [facility] Comment on above: Performed By: #### C BC #### [facility] [address] [address] [address] Maggie Enriquez Monocytes/100 WBC (Bld) 8.6 % Normal 1.7-12.0 [facility] Comment on above: Performed By: #### C BC #### [facility] [address] [address] [address] Maggie Enriquez NEUT # 3.1 103/ul Normal 1.4-6.5 [facility] Comment on above: Performed By: #### C BC #### [facility] [address] [address] [address] Maggie Enriquez Neutrophils/100 WBC (Bld) 54.1 % Normal 43.0-75.0 [facility] Comment on above: Performed By: #### C BC #### [facility] [address] [address] [address] Maggie Enriquez Platelet mean volume (Bld) [Entitic vol] 10.2 fL Normal 9.5-13.5 [facility] Comment on above: Performed By: #### C BC #### [facility] [address] [address] [address] Maggie Enriquez PLT 246 103/ul Normal 150-450 [facility] Comment on above: Performed By: #### C BC #### [facility] [address] [address] [address] Maggie Enriquez RBC 4.25 106/ul Normal 4.20-5.40 The [facility] Comment on above: Performed By: #### C BC #### [facility] [address] [address] [address] Maggie Enriquez WBC 5.8 103/ul Normal 4.0-11.0 [facility] Comment on above: Performed By: #### C BC #### [facility] [address] [address] [address] Maggie Enriquez LIPID PROFILEon 03-02-2022 CHOL-HDL RATIO NORM SEE BELOW Normal [facility] Comment on above: Result Comment: 3.3 - 4.4 LOW RISK 4.4 - 7.1 AVERAGE RISK 7.1 - 11.0 MODERATE RISK >11.0 HIGH RISK Performed By: #### C MP, LIPID, TSH ####[facility] [address] [address]Dr. Maggie Enriquez Cholesterol [Mass/Vol] 175 mg/dL Normal <=200 [facility] Comment on above: Performed By: #### C MP, LIPID, TSH ####[facility] [address] [address]Dr. Maggie Enriquez Cholesterol in HDL [Mass/Vol] 45 mg/dL Normal 40-60 [facility] Comment on above: Performed By: #### C MP, LIPID, TSH ####[facility] [id number] [address]Dr. Maggie Enriquez Cholesterol in LDL [Mass/Vol] 102.0 mg/dL Normal [facility] Comment on above: Performed By: #### C MP, LIPID, TSH ####[facility] [address] [address]Dr. Maggie Enriquez Cholesterol.total/Cho lesterol in HDL [Mass ratio] 3.9 {ratio} Normal [facility] Comment on above: Performed By: #### C MP, LIPID, TSH ####[facility] [address] [address]Dr. Maggie Enriquez HDL NORMAL > or = 60 mg/dl - LO W CARDIOVASCULAR RISK <40 mg/dl - HIGH CARDIOVASCULAR RISK Normal [facility] Comment on above: Performed By: #### C MP, LIPID, TSH ####[facility] [address] [id number] [address]uqez LDL CALC NORMAL SEE BELOW Normal [facility] Comment on above: Result Comment: <100 mg/dl OPTIMAL 100 - 129 mg/dl NEAR OR ABOVE OPTIMAL 130 - 159 mg/dl BORDERLINE HIGH 160 - 189 mg/dl HIGH >190 mg/dl VERY HIGH Performed By: #### C MP, LIPID, TSH ####[facility] [address] [id number] Enriquez Triglyceride [Mass/Vol] 140 mg/dL Normal <=150 [facility] Comment on above: Performed By: #### C MP, LIPID, TSH ####[facility] [address] [id number] [address]riquez VLDL CALC 28.0 mg/dL Normal [facility] Comment on above: Performed By: #### C MP, LIPID, TSH ####[facility] [address] [address]Dr. Maggie Enriquez PROF 14(COMP METB)on 022 Albumin [Mass/Vol] 3.3 g/dL Critically low 3.4-5.0 Th [facility] Comment on above: Performed By: #### C MP, LIPID, TSH #### [facility] [address] [address] [address] Maggie Enriquez Albumin/Globulin [Mass ratio] 1.0 {ratio} Normal [facility] Comment on above: Performed By: #### C MP, LIPID, TSH #### [facility] [address] [address] [address] Maggie Enriquez ALP [Catalytic activity/Vol] 74 U/L Normal 46-116 The [facility] Comment on above: Performed By: #### C MP, LIPID, TSH #### [facility] [address] [address] [address] Maggie Enriquez ALT [Catalytic activity/Vol] 32 U/L Normal 14-59 [facility] Comment on above: Performed By: #### C MP, LIPID, TSH #### [facility] [address] [address] [address] Maggie Enriquez Anion gap [Moles/Vol] 11.6 mmol/L Normal Th [facility] Comment on above: Performed By: #### C MP, LIPID, TSH #### [facility] [address] [place] [address] Dr. Maggie Enriquez AST [Catalytic activity/Vol] 24 U/L Normal 15-37 [facility] Comment on above: Performed By: #### C MP, LIPID, TSH #### [facility] [address] [place] [address] Dr. Maggie Enriquez Bilirubin [Mass/Vol] 0.9 mg/dL Normal 0.2-1.0 [facility] Comment on above: Performed By: #### C MP, LIPID, TSH #### [facility] [address] [place] [address] Dr. Maggie Enriquez Calcium [Mass/Vol] 8.8 mg/dL Normal 8.5-10.1 [facility] Comment on above: Performed By: #### C MP, LIPID, TSH #### [facility] [address] [place] [address] Dr. Maggie Enriquez Chloride [Moles/Vol] 106 mmol/L Normal 98-107 [facility] Comment on above: Performed By: #### C MP, LIPID, TSH #### [facility] [address] [place] [address] Dr. Maggie Enriquez CO2 [Moles/Vol] 28.8 mmol/L Normal 21.0-32.0 [facility] Comment on above: Performed By: #### C MP, LIPID, TSH #### [facility] [address] [place] [address] Dr. Maggie Enriquez Creatinine [Mass/Vol] 0.75 mg/dL Normal 0.55-1.02 [facility] Comment on above: Performed By: #### C MP, LIPID, TSH #### [facility] [address] [place] [address] Dr. Maggie Enriquez EGFR-AF COMORAN >60 Normal >=60 [facility] Comment on above: Performed By: #### C MP, LIPID, TSH #### [facility] [address] [place] [address] Dr. Maggie Enriquez EGFR-NON AF COMORAN >60 Normal >=60 The [facility] Comment on above: Performed By: #### C MP, LIPID, TSH #### [facility] [address] [place] [address] Dr. Maggie Enriquez Globulin (S) [Mass/Vol] 3.3 g/dL Normal [facility] Comment on above: Performed By: #### C MP, LIPID, TSH #### [facility] [address] [place] [address] Dr. Maggie Enriquez Glucose [Mass/Vol] 95 mg/dL Normal 74-106 The [facility] Comment on above: Performed By: #### C MP, LIPID, TSH #### [facility] [address] [place] [address] Dr. Maggie Enriquez Potassium [Moles/Vol] 4.4 mmol/L Normal 3.5-5.1 [facility] Comment on above: Performed By: #### C MP, LIPID, TSH #### [facility] [address] [place] [address] Dr. Maggie Enriquez Protein [Mass/Vol] 6.6 g/dL Normal 6.4-8.2 The [facility] Comment on above: Performed By: #### C MP, LIPID, TSH #### [facility] [address] [place] [address] Dr. Maggie Enriquez Sodium [Moles/Vol] 142 mmol/L Normal 136-145 The [facility] Comment on above: Performed By: #### C MP, LIPID, TSH #### [facility] [address] [place] [address] Dr. Maggie Enriquez Urea nitrogen [Mass/Vol] 12.0 mg/dL Normal 7.0-18.0 The [facility] Comment on above: Performed By: #### C MP, LIPID, TSH #### [facility] [address] [place] [address] Dr. Maggie Enriquez Urea nitrogen/Creatinine [Mass ratio] 16.0 mg/mg Normal [facility] Comment on above: Performed By: #### C MP, LIPID, TSH #### [facility] [address] [address] [address] Maggie Enriquez TSHon 03-02-2022 TSH 3.460 uIU/mL Normal 0.358-3.740 [facility] Comment on above: Performed By: #### C MP, LIPID, TSH ####[facility] [address] [place], [place] [address]RcDr. Maggie Enriquez VITAMIN D 25 OHon 03-02-2022 VIT D 25-OH 64.9 ng/mL Normal [facility] Comment on above: Performed By: #### V ITAD #### [facility] [address] [place] [address] Dr. Maggie Enriquez VIT D RANGES SEE BELOW Normal [facility] Comment on above: Result Comment: <20 ng/mL Vit D deficient 20 - <30 ng/mL Vit D insufficient 30 - 100 ng/mL Vit D sufficient >100 ng/mL Potential Toxicity Performed By: #### V ITAD #### [facility] [address] [place] [address] Dr. Maggie Enriquez CBC AUTO DIFFon 07-10-2021 BASO # 0.1 103/ul Normal 0.0-0.1 [facility] Comment on above: Performed By: #### C BC #### [facility] [address] [place] [address] Dr. Maggie Enriquez Basophils/100 WBC (Bld) 1.0 % Normal 0.2-2.0 [facility] Comment on above: Performed By: #### C BC #### [facility] [address] [place] [address] Dr. Maggie Enriquez EO # 0.1 103/ul Normal 0.0-0.7 [facility] Comment on above: Performed By: #### C BC #### [facility] [address] [place] [address] Dr. Maggie Enriquez Eosinophils/100 WBC (Bld) 1.8 % Normal 0.9-7.0 [facility] Comment on above: Performed By: #### C BC #### [facility] [address] [place] [address] Dr. Maggie Enriquez Erythrocyte distribution width (RBC) [Ratio] 12.8 % Normal 11.0-15.0 [facility] Comment on above: Performed By: #### C BC #### [facility] [address] [place] [address] Dr. Maggie Enriquez Hematocrit (Bld) [Volume fraction] 41.8 % Normal 36.0-48.0 [facility] Comment on above: Performed By: #### C BC #### [facility] [address] [place] [address] Dr. Maggie Enriquez Hemoglobin (Bld) [Mass/Vol] 13.5 g/dL Normal 12.0-16.0 The [facility] Comment on above: Performed By: #### C BC #### [facility] [address] [place] [address] Dr. Maggie Enriquez IG # 0.02 10e3/ul Normal 0.00-0.03 [facility] Comment on above: Performed By: #### C BC #### [facility] [address] [place] [address] Dr. Maggie Enriquez IG % 0.3 % Normal 0.0-0.5 [facility] Comment on above: Performed By: #### C BC #### [facility] [address] [place] [address] Dr. Maggie Enriquez LYMPH # 2.4 103/ul Normal 1.2-3.8 [facility] Comment on above: Performed By: #### C BC #### [facility] [address] [place] [address] Dr. Maggie Enriquez Lymphocytes/100 WBC (Bld) 38.2 % Normal 20.5-60.0 The [facility] Comment on above: Performed By: #### C BC #### [facility] [address] [place] [address] Dr. Maggie Enriquez MANUAL DIFF REQ NO Normal [facility] Comment on above: Performed By: #### C BC #### [facility] [address] [place] [address] Dr. Maggie Enriquez MCH (RBC) [Entitic mass] 29.2 pg Normal 26.7-34.0 [facility] Comment on above: Performed By: #### C BC #### [facility] [address] [place] [address] Dr. Maggie Enriquez MCHC (RBC) [Mass/Vol] 32.3 g/dL Normal 29.9-35.2 [facility] Comment on above: Performed By: #### C BC #### [facility] [address] [place] [address] Dr. Maggie Enriquez MCV (RBC) [Entitic vol] 90.5 fL Normal 81.0-99.0 [facility] Comment on above: Performed By: #### C BC #### [facility] [address] [place] [address] Dr. Maggie Enriquez MONO # 0.5 103/ul Normal 0.3-0.8 [facility] Comment on above: Performed By: #### C BC #### [facility] [address] [place] [address] Dr. Maggie Enriquez Monocytes/100 WBC (Bld) 8.3 % Normal 1.7-12.0 [facility] Comment on above: Performed By: #### C BC #### [facility] [address] [place] [address] Dr. Maggie Enriquez NEUT # 3.1 103/ul Normal 1.4-6.5 [facility] Comment on above: Performed By: #### C BC #### [facility] [address] [place] [address] Dr. Maggie Enriquez Neutrophils/100 WBC (Bld) 50.4 % Normal 43.0-75.0 The [facility] Comment on above: Performed By: #### C BC #### [facility] [address] [place] [address] Dr. Maggie Enriquez Platelet mean volume (Bld) [Entitic vol] 9.8 fL Normal 9.5-13.5 [facility] Comment on above: Performed By: #### C BC #### [facility] [address] [place] [address] Dr. Maggie Enriquez PLT 237 103/ul Normal 150-450 [facility] Comment on above: Performed By: #### C BC #### [facility] [address] [address] [address] Maggie Enriquez RBC 4.62 106/ul Normal 4.20-5.40 [facility] Comment on above: Performed By: #### C BC #### [facility] [address] [address] [address] Maggie Enriquez WBC 6.2 103/ul Normal 4.0-11.0 [facility] Comment on above: Performed By: #### C BC #### [facility] [address] [address] [address] Maggie Enriquez LIPID PROFILEon 07-10-2021 CHOL-HDL RATIO NORM SEE BELOW Normal [facility] Comment on above: Result Comment: 3.3 - 4.4 LOW RISK 4.4 - 7.1 AVERAGE RISK 7.1 - 11.0 MODERATE RISK >11.0 HIGH RISK Performed By: #### C MP, LIPID #### [facility] [address] [place] [address] Dr. Maggie Enriquez Cholesterol [Mass/Vol] 191 mg/dL Normal <=200 [facility] Comment on above: Performed By: #### C MP, LIPID #### [facility] [address] [place] [address] Dr. Maggie Enriquez Cholesterol in HDL [Mass/Vol] 52 mg/dL Normal [facility] Comment on above: Performed By: #### C MP, LIPID #### [facility] [address] [address] [address] Maggie Enriquez Cholesterol in LDL [Mass/Vol] 111.8 mg/dL Normal [facility] Comment on above: Performed By: #### C MP, LIPID #### [facility] [address] [place] [address] Dr. Maggie Enriquez Cholesterol.total/Cho lesterol in HDL [Mass ratio] 3.7 {ratio} Normal [facility] Comment on above: Performed By: #### C MP, LIPID #### [facility] [address] [place] [address] Dr. Maggie Enriquez HDL NORMAL > or = 60 mg/dl - LO W CARDIOVASCULAR RISK <40 mg/dl - HIGH CARDIOVASCULAR RISK Normal [facility] Comment on above: Performed By: #### C MP, LIPID #### [facility] [address] [address] [address] Maggie Enriquez LDL CALC NORMAL SEE BELOW Normal [facility] Comment on above: Result Comment: <100 mg/dl OPTIMAL 100 - 129 mg/dl NEAR OR ABOVE OPTIMAL 130 - 159 mg/dl BORDERLINE HIGH 160 - 189 mg/dl HIGH >190 mg/dl VERY HIGH Performed By: #### C MP, LIPID #### [facility] [address] [address] [address] Maggie Enriquez Triglyceride [Mass/Vol] 136 mg/dL Normal <=150 [facility] Comment on above: Performed By: #### C MP, LIPID #### [facility] [address] [address] [address] Maggie Enriquez VLDL CALC 27.2 mg/dL Normal [facility] Comment on above: Performed By: #### C MP, LIPID #### [facility] [address] [address] [address] Maggie Enriquez PROF 14(COMP METB)on 021 Albumin [Mass/Vol] 3.5 g/dL Normal 3.5-5.0 [facility] Comment on above: Performed By: #### C MP, LIPID #### [facility] [address] [address] [address] Maggie Enriquez Albumin/Globulin [Mass ratio] 1.0 {ratio} Normal [facility] Comment on above: Performed By: #### C MP, LIPID #### [facility] [address] [address] [address] Maggie Enriquez ALP [Catalytic activity/Vol] 76 U/L Normal 38-126 [facility] Comment on above: Performed By: #### C MP, LIPID #### [facility] [address] [address] [address] Maggie Enriquez ALT [Catalytic activity/Vol] 33 U/L Normal 9-52 [facility] Comment on above: Performed By: #### C MP, LIPID #### [facility] [address] [address] [address] Maggie Enriquez Anion gap [Moles/Vol] 9.5 mmol/L Normal [facility] Comment on above: Performed By: #### C MP, LIPID #### [facility] [address] [address] [address] Maggie Enriquez AST [Catalytic activity/Vol] 24 U/L Normal 14-36 [facility] Comment on above: Performed By: #### C MP, LIPID #### [facility] [address] [address] [address] Maggie Enriquez Bilirubin [Mass/Vol] 1.2 mg/dL Normal 0.2-1.3 [facility] Comment on above: Performed By: #### C MP, LIPID #### [facility] [address] [address] [address] Maggie Enriquez Calcium [Mass/Vol] 9.2 mg/dL Normal 8.4-10.2 [facility] Comment on above: Performed By: #### C MP, LIPID #### [facility] [address] [address] [address] Maggie Enriquez Chloride [Moles/Vol] 104 mmol/L Normal 98-107 [facility] Comment on above: Performed By: #### C MP, LIPID #### [facility] [address] [address] [address] Maggie Enriquez CO2 [Moles/Vol] 31.6 mmol/L Critically high 22.0-30.0 [facility] Comment on above: Performed By: #### C MP, LIPID #### [facility] [address] [address] [address] Maggie Enriquez Creatinine [Mass/Vol] 0.65 mg/dL Normal 0.52-1.04 [facility] Comment on above: Performed By: #### C MP, LIPID #### [facility] [address] [address] [address] Maggie Enriquez EGFR-AF COMORAN >60 Normal >=60 [facility] Comment on above: Performed By: #### C MP, LIPID #### [facility] [address] [address] [address] Maggie Enriquez EGFR-NON AF COMORAN >60 Normal >=60 [facility] Comment on above: Performed By: #### C MP, LIPID #### [facility] [address] [address] [address] Maggie Enriquez Globulin (S) [Mass/Vol] 3.6 g/dL Normal [facility] Comment on above: Performed By: #### C MP, LIPID #### [facility] [address] [address] [address] Maggie Enriquez Glucose [Mass/Vol] 96 mg/dL Normal 74-106 [facility] Comment on above: Performed By: #### C MP, LIPID #### [facility] [address] [place] [address] Dr. Maggie Enriquez Potassium [Moles/Vol] 4.1 mmol/L Normal 3.4-5.0 [facility] Comment on above: Performed By: #### C MP, LIPID #### [facility] [address] [place] [address] Dr. Maggie Enriquez Protein [Mass/Vol] 7.1 g/dL Normal 6.1-8.2 [facility] Comment on above: Performed By: #### C MP, LIPID #### [facility] [address] [place] [address] Dr. Maggie Enriquez Sodium [Moles/Vol] 141 mmol/L Normal 137-145 [facility] Comment on above: Performed By: #### C MP, LIPID #### [facility] [address] [place] [address] Dr. Maggie Enriquez Urea nitrogen [Mass/Vol] 16.0 mg/dL Normal 7.0-17.0 [facility] Comment on above: Performed By: #### C MP, LIPID #### [facility] [address] [address] [address] Maggie Enriquez Urea nitrogen/Creatinine [Mass ratio] 24.6 mg/mg Normal [facility] Comment on above: Performed By: #### C MP, LIPID #### [facility] [address] [address] [address] Maggie Enriquez VITAMIN D 25 OHon 07-10-2021 VIT D 25-OH 74.1 ng/mL Normal [facility] Comment on above: Performed By: #### V ITAD #### [facility] [address] [address] [address] Maggie Enriquez VIT D RANGES SEE BELOW Normal [facility] Comment on above: Result Comment: <20 ng/mL Vit D deficient 20 - <30 ng/mL Vit D insufficient 30 - 100 ng/mL Vit D sufficient >100 ng/mL Potential Toxicity Performed By: #### V ITAD #### [facility] [address] [place] [address] Dr. Maggie Enriquez Vital Signs Date Time Vital Sign Value Performing Clinician Faci lity 04-26-2022 10:45-0400 Diastolic blood pressure 76 mm[Hg] MD Yolanda Saucedo Work Phone: [facility] 04-26-2022 10:45-0400 Heart rate 80 /min MD Yolanda Saucedo Work Phone: [facility] 04-26-2022 10:45-0400 Respiratory rate 18 /min MD Yolanda Saucedo Work Phone: [facility] 04-26-2022 10:45-0400 SaO2% (BldA) [Mass fraction] 99 % MD Yolanda Saucedo Work Phone: [facility] 04-26-2022 10:45-0400 Systolic blood pressure 154 mm[Hg] MD Yolanda Saucedo Work Phone: [facility] 04-26-2022 08:18-0400 Body height 154.94 cm MD Yolanda Saucedo Work Phone: [facility] 04-26-2022 08:18-0400 Body temperature 98.3 [degF] MD Yolanda Saucedo Work Phone: [facility] 04-26-2022 08:18-0400 Body weight 99.79 kg MD Yolanda Saucedo Work Phone: [facility] Encounters Encounter Date Encounter Type Care Provider Facility Start: 08-26-2023 End: 08-27-2023 ambulatory Liana L Feliciano Facility:[facility] Start: 05-25-2023 End: 05-26-2023 ambulatory Liana L Feliciano Facility:[facility] Start: 04-26-2023 End: 04-27-2023 ambulatory Liana L Feliciano Facility:[facility] Start: 04-26-2023 End: 04-26-2023 Lab Drop off Liana L Feliciano [facility] Start: 03-28-2023 End: 03-29-2023 ambulatory Daquan Hager Facility:[facility] Start: 11-15-2022 End: 11-16-2022 ambulatory Liana L Feliciano Facility:[facility] Start: 11-02-2022 ambulatory Daquan Hager Facility:[facility] Start: 06-01-2022 End: 06-02-[address] YOLANDA SAUCEDO Facility:[facility] Start: 05-07-2022 End: 05-08-[address] YOLANDA SAUCEDO Facility:[facility] Start: 04-26-2022 End: 04-26-2022 Admission to same day surgery center MD Yolanda Saucedo Work Phone: [facility] Start: 04-22-2022 End: 04-22-2022 Patient encounter procedure MD Yolanda Saucedo Work Phone: [facility] Start: 03-08-2022 End: 03-09-[address] YOLANDA SAUCEDO Facility:[facility] Start: 03-02-2022 End: 03-03-[address] YOLANDA SAUCEDO Facility:[facility] Start: 07-10-2021 End: 07-11-[address] YOLANDA SAUCEDO Facility:[facility] Procedures Date Procedure Procedure Detail Performing Clinician Start: 04-26-2022 Screening colonoscopy Annette Saucedo Work Phone: Start: 08-29-2021 Colonoscopy Liana Morrell b Cataract surgery Liana Wiggins Comment on above: bilateral Cholecystectomy Liana Wiggins Glaucoma surgery spe cialty (qualifier value) Liana Wiggins Comment on above: bilateral Hysterectomy Liana Wiggins SARS Antigen (LFIA) MD Yolanda Martinez night Work Phone: Total abdominal hyst erectomy with bilateral salpingo-oophorectomy Liana Wiggins Plan of Treatment Date Care Activity Detail Author Start: 04-27-2024 ambulatory Ambulatory Facility:[facility] Start: 04-26-2022 [facility] Work Phone: Start: 04-26-2022 Screening colonoscopy DH Colonoscopy Screening (Not Applicable) [facility] Start: 04-26-2022 End: 04-26-2022 Admission to same day surgery center Departed Surgical Day Care [facility] Patient Education Hemorrhoids Diverticulo sis [facility] Work Phone: Immunizations Immunization Date Immunization Notes Care Provider Loni pedro NEGATED: Highlighted row has not occurred!11-15-2022 influenza virus vaccine, unspecified formulation [facility] NE[facility]: Highlighted row has not occurred!11-15-2022 SARS-CoV-2 mRNA (tozinameran 5y-11y) vaccine Liana Wiggins [facility] Payers Date Payer Category Payer Medicare [id number] 1959 Private Health Insurance [facility] [id number] 1959 Private Health Insurance [facility] [id number] 1950 Unknown [id number] 1950 Unknown [id number] [id number] 1950 Unknown [id number] [id number] 1948 Unknown [id number] [id number] 1948 Unknown [id number] [id number] 1948 Unknown [id number] [id number] 1948 Unknown [id number] 2.16.840.1.591878.3.579.2.7 1948 Unknown [id number] [id number] 1948 Unknown [id number] 2.16.840.1.508917.3.579.2.7 1948 Unknown [id number] 2.16.840.1.491605.3.579.2.7 1948 Unknown [id number] 2.16.840.1.667795.3.579.2.7 1948 Unknown [id number] [id number] 1950 Unknown [id number] [id number] 27 Self-pay Self Pay [id number] Unknown ANTHEM [employer]-EMPL[employer] EE NON-ER [id number] Social History Date Type Detail Facility Start: 04-26-2022 Tobacco smoking stat us NHIS Current some day smoker [facility] Start: 1950 Sex Assigned At Female F [facility] Start: 04-26-2023 Tobacco smoking status Ex-smoker ([facility]) [facility] Comment on above: quit January 2011, 10 c igs per day, started at age 14 Sex Assigned At Female [facility] Goals Date Patient Goal Desired Activity /State Procedure note 04-26-2022 Note Date & Type Note Facility 04-26-2022 Procedure note [facility] Evaluation + Plan note Note Date & Type Note Facility Evaluation + Plan note Future Appointments Appointment Date:04/27/2024 09:30:00 AM Scheduled Provider: Location:[facility] Appointment Type:FM Medicare Wellness Subsequent Diagnostic Tests PendingHCV Antibody RFX to Quant PCR 04/26/23 [facility] Evaluation note Note Date & Type Note Facility Evaluation note No assessment information availa ble [facility] Work Phone: History and physical note Note Date & Type Note Facility History and physical note Note Date/Time April 26, 2022 9:53am [facility] [address] [place] [address] Gastroenterology H&P Signed Patient: Stas Huang MR#: [id number] : 1950 Acct:[id number] Age/Sex: 72 / F Adm Date: 2 Loc: Room: Type: [facility] Attending Dr: Delfin Starr MD Copies to: MD Yolanda Caldera MD~ Date of Service: 04/26/2022 HISTORY & PHYSICAL: Patient's history with special attention to the cardiovascular, pulmonary systems and the current problem was reviewed with the patient immediately prior to the procedure. Present medications and doses reviewed in the EMR. Allergies and pertinent laboratory tests were also reviewedat this time in the EMR. The physical examination, as below, was then performed. Indication, assessment and HPI: 72-year-old female presents for screening colonoscopy Family history of GI malignancy? No PHYSICAL EXAMINATION Mouth and Pharynx : Moist mucus membranes, normal dentition Cardiac: Regular rate, regular rhythm Pulmonary: Clear to auscultation bilaterally, no wheezing Neurological: Alert and oriented x3, no focal deficits noted Abdomen: Abdomen soft, non-tender REVIEW OF SYSTEMS Constitutional: Denies malaise, fevers Cardiovascular: Denies chest pain, palpitations Respiratory: Denies shortness of breath, wheezing Gastrointestinal: Per HPI Genitourinary: Denies dysuria, polyuria Musculoskeletal: Denies joint swelling, joint stiffness Neurological: Denies numbness, tingling Integumentary: Denies rashes, skin lesions Endocrine: Denies fatigue, weight loss Written informed consent obtained from the patient. Risks (including but not limited to perforation, infection, bloating, bleeding, need for emergent surgeryand loss of life), benefits and alternatives explained and questions answered. The patient verbalized understanding. Based on history patient is an appropriate candidate for the procedure. Delfin Starr MD Documented By: Delfin Starr MD 04/26/22 0952 Signed By: <Electronically signed by Delfin Starr MD> 04/26/22 0953 [facility] Work Phone: Hospital course Narrative Note Date & Type Note Facility Hospital course Narrative No data available for this section [facility] Discharge instructions Note Date & Type Note Facility Hospital Discharge instructions No data available for this section [facility] Progress note Note Date & Type Note Facility Progress note No data available for this section [facility] Summary Purpose Family History No Family History Records Found Relationship Condition Age at Onset Recorded Date/T vicente Not Specified Diabetes mellitus Unknown Congestive heart failure Unknown family member Malignant neoplasm of ovary Unknown Advance Directives No Advanced Directives Records Found Advance Directive Response Recorded Date/ Time Advance Directives No June 10, 2020 12:14pm Chief Complaint and Reason for Visit Chief Complaint Screening Screening Additional Source Comments INFORMATION SOURCE (unrecogn ized section and content) DATE CREATED AUTHOR 05/01/2022 [facility] DATE CREATED AUTHOR AUTHOR'S ORGANIZ ATION 06/04/2022 [facility] DATE CREATED AUTHOR AUTHOR'S ORGANIZ ATION 09/02/2023 [facility] Care Teams (unrecognized sec tion and content) Team Status: Inactive Member Role Status Dates Yolanda Saucedo MD Primary Care Provider Active Delfin Starr MD Attending Provider Active Team Status: Active Member Role Status Dates Yolanda Saucedo MD Primary Care Provider Active FOR RECORDS PERTAINING TO PATIENTS WHO ARE OR HAVE BEEN ENROLLED IN A CHEMICAL DEPENDENCY/SUBSTANCEABUSE PROGRAM, SOME INFORMATION MAY BE OMITTED. This clinical summary was aggregated from multiple sources. Caution should be exercised in using it in the provision of clinical care. This summary normalizes information from multiple sources, and as a consequence, information in this document may materially change the coding, format and clinical context of patient data. In addition, data may be omitted in some cases. CLINICAL DECISIONS SHOULD BE BASED ON THE PRIMARY CLINICAL RECORDS. [employer] [facility]. provides no warranty or guarantee of the accuracy or completeness of information in this document.
--- NOTE | 2023-09-05 09:43 | MR_ITS ---
[address] [address] Patient Name: ZULLY HUANG MRN: [id number] date: 1950 Sex: F Assigned Patient Location: MRI Current Patient Location: MRI Accession/Order Number: [id number] Exam Date: 09/05/2023 10:00 Report Date: 09/05/2023 11:53 At the request of: JUSTIN SANCHEZ Procedure: MR thoracic spine wo con EXAM: MR cervical spine wo con, MR thoracic spine wo con CLINICAL INDICATION: Dorsalgia M54.9, abnormal findings on imaging R93.7 COMPARISON: Cervical and thoracic spine radiographs 08/18/2023. TECHNIQUE/PROTOCOL: Standard noncontrast cervical and thoracic spine protocol MR performed (Sagittal STIR, T1, T2, axial gradient, T2-weighted images). FINDINGS: Pedicles: Congenitally shortened. Spinal Cord: Normal in caliber and signal. Epidural Space: Mild dorsal epidural lipomatosis from T10 to T12. Alignment: Normal craniocervical junction. Straightening of the physiologic cervical lordosis could relate at least part to patient positioning. Marrow Signal: Normal. Vertebral Body Heights: Maintained. Paraspinal Soft Tissues: Normal. Neck Soft Tissues: Normal. Spondylotic Changes: Multilevel spondylotic changes include diffuse disc desiccation and varying degrees of intervertebral disc height loss, osteophytic ridging, and facet/uncovertebral joint hypertrophy. Several small Schmorl's nodes throughout the thoracic spine. Small disc bulges at T8-T9, T9-T10, T10-T11, T11-T12, and T12-L1 mildly indent the ventral thecal sac. No high-grade spinal canal or foraminal narrowing at any thoracic level. C2-C3: No disc bulge or herniation. No high-grade spinal canal foraminal narrowing. C3-C4: Slight disc osteophyte complex indents the ventral thecal sac. Mild spinal canal narrowing. No high-grade foraminal narrowing. C4-C5: Small disc osteophyte complex indents the ventral thecal sac and slightly flattens the ventral spinal cord surface. Mild spinal canal narrowing. Advanced right and moderate left foraminal narrowing is contributed to by uncovertebral and facet joint hypertrophy. C5-C6: Small disc osteophyte complex indents the ventral thecal sac. Moderate spinal canal narrowing. Advanced bilateral foraminal narrowing is contributed to by uncovertebral and facet joint hypertrophy. C6-C7: Disc osteophyte complex indents the ventral thecal sac and flattens the ventral spinal cord surface. Moderate spinal canal narrowing. Advanced bilateral foraminal narrowing is contributed to by uncovertebral and facet joint hypertrophy. C7-T1: No disc bulge or herniation. No high-grade spinal canal or foraminal narrowing. Mild bilateral facet hypertrophy. MR/MR thoracic spine wo con IMPRESSION: 1. Multilevel cervicothoracic spondylotic changes without high-grade spinal canal narrowing at any level. These are superimposed on congenitally shortened cervical pedicles. 2. Spinal canal narrowing is at most moderate at C5-C6. 3. Foraminal narrowing is advanced on the right at C4-C5 as well as bilaterally at C5-C6 and C6-C7, contributed to by uncovertebral and facet joint hypertrophy. Electronically authenticated by: MALU MAST Date: 09/05/2023 11:53
== END 2023-09-05 09:40 | disposition home or self-care (01) ==
LOC: MRI 09:39
PROVIDERS: PCP Family Medicine; Visit Provider Nurse Practitioner
DX: M54.9 Dorsalgia, unspecified (principal); R93.7 Abnormal findings on diagnostic imaging of other parts of musculoskeletal system; V49.50XA Passenger injured in collision with unspecified motor vehicles in traffic accident, initial encounter
CPT/HCPCS: 72141; 72146

== ENCOUNTER 2023-11-29 12:36 | Outpatient (OUT) | payer MEDICARE, SELFPAY ==
--- NOTE | 2023-11-29 | CONS_ITS ---
CONSULTATION DATE: 11/29/2023 TO: Dr. Hager CHIEF COMPLAINT: Includes right mid lumbar pain to right upper lumbar pain. HISTORY: She describes the pain as being 0-7/10 pain, sharp in character, increased with activity such as standing and walking, performing transitioning maneuvers. She feels most comfortable in the semi-recumbent position. She denied any change in bowel and bladder habits, or new sensorimotor changes in her lower extremities. CURRENT MEDICATION: Includes diclofenac 75 mg daily p.r.n. The diclofenac should have been taken for at least the last six months. Flexeril 10 mg pills b.i.d. to t.i.d. and various herbal medications. EXAM: Her examination is notable for patient having no clinical radiculopathy or myelopathy involving the lower extremities. Patient did have severe pain with lumbar facet joint loading maneuvers on the right side. It appeared to be most severe at approximately the L2-3 level; however, we could not be sure if she had more pain at the L1-2 or the L3-4 level as well. She does associated myofascial spasm of the lumbar paravertebral muscles on the right side. IMPRESSION: Our impression is patient has chronic pain secondary to failed conservative therapy, which includes activity modification, use of non-steroidal agents for at the least the last six months, a supervised home exercise program. RECOMMENDATIONS: I recommend the patient proceeding with a diagnostic, right sided, two level medial branch block starting at the L2-3 levels and then we will make a decision during the procedure whether we will proceed with the L3-4 versus the L1-2 level medial branch block. Lastly, we have asked her to formalize physical therapy by initiating aquatic therapy. All the details were presented to the patient. All her questions answered. She agrees to proceed with the outlined plan As part of providing excellent, safe, comprehensive care, the following was completed at our patient's visit: 1. A medication reconciliation and review to ensure accurate knowledge of current/active medications, including asking our patients to inform us about any [id number] medications or herbal remedies/nutritional supplements/alternative remedies. 2. A review to specifically ensure our patients have had annual screening for: elevated body mass index (BMI, see intake chart for exact total), tobacco use, screening for depression, and screening for unhealthy alcohol use. When screening is concerning, patients are provided with education and the specific recommendation to discuss the concerning health issue and treatment options with their primary care provider. NEPTALI
== END 2023-11-29 12:37 | disposition home or self-care (01) ==
LOC: PM 12:36
PROVIDERS: PCP Family Medicine; Visit Provider Anesthesiology Pain Medicine
DX: M54.50 Low back pain, unspecified (principal); M62.838 Other muscle spasm
CPT/HCPCS: G0463

== ENCOUNTER 2023-12-28 10:20 | Outpatient (OUT) | payer MEDICARE, SELFPAY ==
--- NOTE | 2023-12-28 | XR_ITS ---
[address] [address] Patient Name: ZULLY HUANG MRN: [id number] date: 1950 Sex: F Assigned Patient Location: Current Patient Location: Accession/Order Number: [id number] Exam Date: 12/28/2023 10:30 Report Date: 12/28/2023 13:24 At the request of: MADAI ELIZABETH Procedure: XR foot EDINSON min 3V EXAMINATION: XR foot EDINSON min 3V HISTORY: BILATERAL FOOT PAIN COMPARISON: No relevant comparison available. FINDINGS: RIGHT FINDINGS: BONES: No acute fracture or dislocation. Moderate enthesopathic spurring of the calcaneus at the Achilles and plantar insertions. Moderate degenerative changes most significant along the dorsal talonavicular joint with large marginal osteophyte formation of the navicular. Mild hallux valgus. SOFT TISSUES: Negative. No visible soft tissue swelling. OTHER: Negative. LEFT FINDINGS: BONES: No acute fracture or dislocation. Moderate enthesopathic spurring of the calcaneus at the Achilles and plantar insertions. Moderate degenerative changes most significant along the dorsal talonavicular joint with large marginal osteophyte formation of the navicular. SOFT TISSUES: Negative. No visible soft tissue swelling. OTHER: Negative. XR/XR foot EDINSON min 3V IMPRESSION: RIGHT CONCLUSION: Osteoarthritis LEFT CONCLUSION: Osteoarthritis Electronically authenticated by: ABE LUGO Date: 12/28/2023 13:24
== END 2023-12-28 10:21 | disposition home or self-care (01) ==
LOC: EC 10:20
PROVIDERS: PCP Family Medicine; Visit Provider Podiatrist Foot & Ankle Surgery
DX: M79.671 Pain in right foot (principal); M79.672 Pain in left foot; M19.072 Primary osteoarthritis, left ankle and foot; M19.071 Primary osteoarthritis, right ankle and foot
CPT/HCPCS: 73630

== ENCOUNTER 2024-10-01 14:49 | Outpatient (OUT) | payer OTHER, SELFPAY ==
--- OUTSIDE RECORDS SUMMARY | 2024-10-01 14:54 | XMS_ITS | CCD ---
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 80.0-100.0 [facility] Comment on above: Performed By: #### 1 [id number], 1717415, 89558460 #### [facility] [address] [place] [address] Graham Absolute 0.6 E9/L Normal 0.2-1.0 [facility] Comment on above: Performed By: #### 1 3480117, 8470884, 42730490 #### [facility] [address] [place] [address] Monocytes/100 WBC (Bld) 11.8 % Normal 4.0-14.0 [facility] Comment on above: Performed By: #### 1 [id number], 7497442, 65629033 #### [facility] [address] [place] [address] Neutro Absolute 3.0 E9/L Normal 2.0-7.5 [facility] Comment on above: Performed By: #### 1 6740681, 3702503, 21897753 #### [facility] [address] [place] [address] Neutro Auto 56.7 % Normal 36.0-75.0 [facility] Comment on above: Performed By: #### 1 6282345, 2677116, 75149932 #### [facility] [address] [place] [address] Platelet 369.0 E9/L Normal 150.0-500.0 [facility] Comment on above: Performed By: #### 1 8915267, 4478245, 25195800 #### [facility] [address] [place] [address] Platelet mean volume (Bld) [Entitic vol] 7.6 fL Normal 6.4-10.8 [facility] Comment on above: Performed By: #### 1 [id number], 3173177, 20967081 #### [facility] [address] [place] [address] RBC 3.6 E12/L Low 4.3-5.9 [facility] Comment on above: Performed By: #### 1 8084926, 8827401, 84918844 #### [facility] [address] [place] [address] WBC 5.3 E9/L Normal 4.0-11.0 [facility] Comment on above: Performed By: #### 1 9882294, 3025408, 77023813 #### [facility] [address] [place] [address] CHEMISTRYOrdered By: SYSTEM SYSTEM on 09-18-2023 Anion gap [Moles/Vol] 11 mmol/L Normal 6 - 16 mEq/L R emisol Chem Calcium [Mass/Vol] 8.5 mg/dL Low 8.9 - 11.1 mg/dL Remisol Chem Chloride [Moles/Vol] 107 mmol/L Normal 101 - 111 mmol/ L [facility] CO2 [Moles/Vol] 27 mmol/L Normal 21 - 31 mmol/L Remis ol Chem Creatinine [Mass/Vol] 0.8 mg/dL Normal 0.5 - 1.3 mg/d L [facility] Chem eGFR 76 mL/min/1.73 m2 Normal >=59mL/min /1.73 m2 [facility] Glucose [Mass/Vol] 75 mg/dL Normal 55 - 199 mg/dL Re misol Chem Potassium [Moles/Vol] 3.5 mmol/L Normal 3.5 - 5.3 mmol /L [facility] Sodium [Moles/Vol] 141 mmol/L Normal 135 - 145 mmol/L [facility] Urea nitrogen [Mass/Vol] 11 mg/dL Normal 5 - 21 mg/dL [facility] Urea nitrogen/Creatinine [Mass ratio] 14 mg/mg Normal 10 - 20 [facility] Consultation Noteon 09-18-19 Endoscopic Procedure Report - Other Patient: STAS HUANG Age: 73 years Sex: Female : 1950 Associated Diagnoses: None Author: Taty Gao MD Pre-Procedure Procedure Date 09/18/2023 09:40:00 . Procedure Type: Esophagogastroduodenos copy with biopsy, control of bleeding. Procedure provider Performed by Taty Gao MD. Current history and physical Documented on chart. Informed Consent After discussing the rationale, risks and benefits, and alternatives to this procedure, the patient provided signed consent for the procedure. Pre-procedure diagnosis: GIB. ASA Classification: Class III. . Monitoring: See anesthesia record. . Procedure The procedure was performed in the hospital. See anesthesia record for sedation given during procedure. The patient was positioned starting in the left lateral decubitus position and with safety measures. Endoscope type used was an adult-size, introduced orally, advanced to the 3rd portion of the duodenum. No difficulty was encountered during the procedure. Views were excellent. The patient tolerated the procedure well. Extent reached: Proximal jejunum Findings 1. Large hiatal hernia 2. 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 Biopsies were not taken given the recent GI bleed with adherent clot. 3. Evidence of previous scars in the body of the stomach likely from previous ulcers or erosions that healed up, random biopsies were taken to rule out H. pylori 4. Small area with minimal oozing in the distal duodenum, could represent oozing AVM, treated with APC 5. Normal examined proximal jejunum Images Procedure images: Rec1_hd_video__ [id number].jpg Rec1_hd_video__ [id number].jpg Rec1_hd_video__ [id number]_44_02_[id number].jpg Rec1_hd_video__ [id number]_43_34_229.jpg Rec1_hd_video__ [id number]_43_11_666.jpg Rec1_hd_video__ T09_43_18_607.jpg Rec1_hd_video__ T09_43_04_357.jpg Rec1_hd_video__ T09_41_36_809.jpg Rec1_hd_video__ T09_39_18_796.jpg Rec1_hd_video__ T09_39_12_808.jpg Rec1_hd_video__ T09_36_08_898.jpg Rec1_hd_video__ T09_36_05_667.jpg Rec1_hd_video__ T09_35_06_120.jpg Rec1_hd_video__ T09_34_03_065.jpg Rec1_hd_video__ T09_33_54_481.jpg Rec1_hd_video__ 09_33_26_391.jpg Rec1_hd_video__ T09_30_46_722.jpg Rec1_hd_video__ 09_30_42_116.jpg Rec1_hd_video__ T09_30_24_721.jpg . Post-Procedure Complications: none. Estimated blood loss: minimal. Specimens: None. Devices/ implants: none left in place. Impression and Plan 1. Large hiatal hernia 2. 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 Biopsies were not taken given the recent GI bleed with adherent clot. 3. Evidence of previous scars in the body of the stomach likely from previous ulcers or erosions that healed up, random biopsies were taken to rule out H. pylori 4. Small area with minimal oozing in the distal duodenum, could represent oozing AVM, treated with APC 5. Normal examined proximal jejunum Recommendations -Start PPI twice daily before breakfast and dinner -Avoid NSAIDs -Will need repeat EGD in 2 to 3 months to reevaluate the GE junction and Violeta ulcers -Please also discharge patient on iron supplement, can add vitamin C 500 mg with that -Follow-up in GI clinic next available in 1 to 2 months .. Normal [facility] Comment on above: Result Comment: Elec tronically Signed By: Murray MCINTYRE, Taty Freedman\.br\Date and Time Signed: 09/18/23 10:11 EST Other Comment: Kimmie bautista Attachment - attachment storage system not supported [id number] Can be viewed in source systemMissing Attachment - attachment storage system not supported [id number] Can be viewed in source systemMissing Attachment - attachment storage system not supported [id number] Can be viewed in source systemMissing Attachment - attachment storage system not supported [id number] Can be viewed in source systemMiss[facility] Attachment - attachment storage system not supported [id number] Can be viewed in source systemMiss[facility] Attachment - attachment storage system not supported [id number] Can be viewed in source systemMissing Attachment - attachment storage system not supported [id number] Can be viewed in source systemMissing Attachment - attachment storage system not supported [id number] Can be viewed in source systemMissing Attachment - attachment storage system not supported [id number] Can be viewed in source systemMiss[facility] Attachment - attachment storage system not supported [id number] Can be viewed in source systemMiss[facility] Attachment - attachment storage system not supported [id number] Can be viewed in source systemMiss[facility] Attachment - attachment storage system not supported [id number] Can be viewed in source systemMiss[facility] Attachment - attachment storage system not supported 3183919 Can be viewed in source systemMiss[facility] Attachment - attachment storage system not supported [id number] Can be viewed in source systemMiss[facility] Attachment - attachment storage system not supported 9391569 Can be viewed in source systemMiss[facility] Attachment - attachment storage system not supported [id number] Can be viewed in source systemMiss[facility] Attachment - attachment storage system not supported [id number] Can be viewed in source systemMiss[facility] Attachment - attachment storage system not supported [id number] Can be viewed in source systemMissmons[facility] developmental [facility] Attachment - attachment storage system not supported [id number] Can be viewed in source system Consultation Note Patient: STAS HUANG Age: 73 years Sex: Female : 1950 Associated Diagnoses: None Author: Taty Gao MD Pre-Procedure Procedure Date 09/18/2023 09:40:00 . Procedure Type: Esophagogastroduodenos copy with biopsy, control of bleeding. Procedure provider Performed by Taty Gao MD. Current history and physical Documented on chart. Informed Consent After discussing the rationale, risks and benefits, and alternatives to this procedure, the patient provided signed consent for the procedure. Pre-procedure diagnosis: GIB. ASA Classification: Class III. . Monitoring: See anesthesia record. . Procedure The procedure was performed in the hospital. See anesthesia record for sedation given during procedure. The patient was positioned starting in the left lateral decubitus position and with safety measures. Endoscope type used was an adult-size, introduced orally, advanced to the 3rd portion of the duodenum. No difficulty was encountered during the procedure. Views were excellent. The patient tolerated the procedure well. Extent reached: Proximal jejunum Findings 1. Large hiatal hernia 2. 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 Biopsies were not taken given the recent GI bleed with adherent clot. 3. Evidence of previous scars in the body of the stomach likely from previous ulcers or erosions that healed up, random biopsies were taken to rule out H. pylori 4. Small area with minimal oozing in the distal duodenum, could represent oozing AVM, treated with APC 5. Normal examined proximal jejunum Images Procedure images: Rec1_hd_video__ [id number].jpg Rec1_hd_video__ [id number]_[id number].jpg Rec1_hd_video__ [id number]_44_02_065.jpg Rec1_hd_video__ T09_43_34_229.jpg Rec1_hd_video__ T09_43_11_666.jpg Rec1_hd_video__ T09_43_18_607.jpg Rec1_hd_video__ T09_43_04_357.jpg Rec1_hd_video__ T09_41_36_809.jpg Rec1_hd_video__ T09_39_18_796.jpg Rec1_hd_video__ T09_39_12_808.jpg Rec1_hd_video__ T09_36_08_898.jpg Rec1_hd_video__ T09_36_05_667.jpg Rec1_hd_video__ T09_35_06_120.jpg Rec1_hd_video__ T09_34_03_065.jpg Rec1_hd_video__ T09_33_54_481.jpg Rec1_hd_video__ T09_33_26_391.jpg Rec1_hd_video__ T09_30_46_722.jpg Rec1_hd_video__ T09_30_42_116.jpg Rec1_hd_video__ T09_30_24_721.jpg . Post-Procedure Complications: none. Estimated blood loss: minimal. Specimens: None. Devices/ implants: none left in place. Impression and Plan 1. Large hiatal hernia 2. 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 Biopsies were not taken given the recent GI bleed with adherent clot. 3. Evidence of previous scars in the body of the stomach likely from previous ulcers or erosions that healed up, random biopsies were taken to rule out H. pylori 4. Small area with minimal oozing in the distal duodenum, could represent oozing AVM, treated with APC 5. Normal examined proximal jejunum Recommendations -Start PPI twice daily before breakfast and dinner -Avoid NSAIDs -Will need repeat EGD in 2 to 3 months to reevaluate the GE junction and Violeta ulcers -Please also discharge patient on iron supplement, can add vitamin C 500 mg with that -Follow-up in GI clinic next available in 1 to 2 months Normal [facility] Comment on above: Result Comment: Elec tronically Signed By: Taty Gao MD\.br\Date and Time Signed: 09/18/23 09:44 EST Other Comment: Kimmie bautista Attachment - attachment storage system not supported [id number] Can be viewed in source systemMissing Attachment - attachment storage system not supported [id number] Can be viewed in source systemMissing Attachment - attachment storage system not supported [id number] Can be viewed in source systemMissing Attachment - attachment storage system not supported [id number] Can be viewed in source systemMissing Attachment - attachment storage system not supported [id number] Can be viewed in source systemMissing Attachment - attachment storage system not supported [id number] Can be viewed in source systemMissing Attachment - attachment storage system not supported [id number] Can be viewed in source systemMissing Attachment - attachment storage system not supported [id number] Can be viewed in source systemMissing Attachment - attachment storage system not supported [id number] Can be viewed in source systemMissing Attachment - attachment storage system not supported [id number] Can be viewed in source systemMissing Attachment - attachment storage system not supported [id number] Can be viewed in source systemMissing Attachment - attachment storage system not supported [id number] Can be viewed in source systemMissing Attachment - attachment storage system not supported [id number] Can be viewed in source systemMissing Attachment - attachment storage system not supported [id number] Can be viewed in source systemMissing Attachment - attachment storage system not supported [id number] Can be viewed in source systemMissing Attachment - attachment storage system not supported [id number] Can be viewed in source systemMissing Attachment - attachment storage system not supported [id number] Can be viewed in source systemMissing Attachment - attachment storage system not supported [id number] Can be viewed in source systemMissing Attachment - attachment storage system not supported [id number] Can be viewed in source system Consultation Note Patient: STAS HUANG Age: 73 years Sex: Female : 1950 Associated Diagnoses: None Author: Taty Gao MD Basic Information Anemia History of Present Illness This is a patient 73-year-old lady with past medical history of GERD who presented to the ED from primary care office with symptomatic anemia of hemoglobin of 6.4 Patient denies any signs or symptoms of bleeding, no recent scopes were done No blood thinners She reported she had colonoscopy in 2021, she is not sure if she ever had an upper endoscopy Health Status Current medications: (Selected) Inpatient Medications Ordered Sodium Chloride 0.9% IV Marixa 500 mL 500 mL: 500 mL, IV, 20 mL/hr, PRN Other (see comment), STAT, Start date 09/16/23 16:14:00 EST, 25 hour(s), Total volume (mL): 500, 87.2 kg, 1.93, m2 acetaminophen 325 mg Tab: 650 mg = 2 tab(s), Tab, Oral, q6hr PRN Pain, Routine, Start date 09/16/23 19:05:00 EST, 09/16/23 19:05:00 EST aspirin 81 mg Oral EC Tab: 81 mg = 1 tab(s), Tab-EC, Oral, Daily, Routine, Start date 09/17/23 9:00:00 EST, 09/16/23 19:10:00 EST atorvastatin 20 mg Tab: 10 mg = 0.5 tab(s), Tab, Oral, Bedtime, Routine, Start date 09/16/23 21:00:00 EST, 09/16/23 19:10:00 EST cyclobenzaprine 10 mg Tab: 10 mg = 1 tab(s), Tab, Oral, TID PRN Spasm, Routine, Start date 09/16/23 23:13:00 EST, 09/16/23 23:13:00 EST hydrALAZINE 20 mg/mL Inj: 10 mg = 0.5 mL, Injection, IV Push, q6hr PRN Other (see comment), Routine, Start date 09/16/23 19:05:00 EST, 09/16/23 19:05:00 EST hydrochlorothiazide 12.5 mg Tab: 12.5 mg = 1 tab(s), Tab, Oral, Daily, Routine, Start date 09/17/23 9:00:00 EST, 09/16/23 19:10:00 EST iron sucrose additive + Sodium Chloride 0.9% intravenous solution 250 mL: 300 mg = 15 mL, Soln-IV, IV Piggyback, Daily for 3 day(s), Stop date 09/20/23 8:59:00 EST, Routine, Start date 09/17/23 9:00:00 EST, 176.67 mL/hr, Infuse over 1.5 hour(s) losartan 50 mg Tab: 100 mg = 2 tab(s), Tab, Oral, Daily, Routine, Start date 09/17/23 9:00:00 EST, 09/16/23 19:10:00 EST pantoprazole 40 mg IV Inj: 40 mg = 10 mL, Injection, IV Push, BID, Routine, Start date 09/16/23 21:00:00 EST, 09/16/23 19:07:00 EST Prescriptions Prescribed atorvastatin 10 mg Tab: 10 mg = 1 tab(s), Oral, Bedtime, # 90 tab(s), Refills(s) 3, Pharmacy: [facility], 154, cm, 04/26/23 10:41:00 EDT, Height/Length Dosing, 91.4, kg, 04/26/23 10:41:00 EDT, Weight Dosing cyclobenzaprine 10 mg Tab: 10 mg = 1 tab(s), Oral, TID, PRN for spasm, # 100 tab(s), Refills(s) 1, Pharmacy: [facility], 154, cm, 08/26/23 9:15:00 EST, Height/Length Dosing, 86.6, kg, 08/26/23 9:15:00 EST, Weight Dosing diclofenac sodium 75 mg Oral EC Tab: 75 mg = 1 tab(s), Oral, BID, # 180 tab(s), Refills(s) 3, Pharmacy: [facility], 154, cm, 04/26/23 10:41:00 EDT, Height/Length Dosing, 91.4, kg, 04/26/23 10:41:00 EDT, Weight Dosing ferrous sulfate 325 mg Tab: 325 mg = 1 tab(s), Oral, Daily, # 90 tab(s), Refills(s) 0, Pharmacy: [facility], 154, cm, 09/15/23 10:22:00 EST, Height/Length Dosing, 87.2, kg, 09/15/23 10:22:00 EST, Weight Dosing hydrochlorothiazide-lo sartan 12.5 mg-100 mg oral tablet: 1 tab(s), Oral, Daily, 90 tab(s), Refill(s) 3, [facility], 154, cm, 04/26/23 10:41:00 EDT, Height/Length Dosing, 91.4, kg, 04/26/23 10:41:00 EDT, Weight Dosing omeprazole 40 mg Cap-DR: 40 mg = 1 cap(s), Oral, Daily, # 90 cap(s), Refills(s) 1, Pharmacy: [facility], 154, cm, 09/15/23 10:22:00 EST, Height/Length Dosing, 87.2, kg, 09/15/23 10:22:00 EST, Weight Dosing Documented Medications Documented Aspir-Low: 81 mg, Oral, Daily, Refills(s) 0 Fish Oil 500 mg oral capsule: 1, Oral, BID, Refills(s) 0 Misc Medication: magnesium complex 400 mg, Daily Multi Vitamin+: Daily, Refill(s) 0 Vitamin D3 5000 intl units (125 mcg) oral tab: mcg tab(s), Oral, Daily, Refills(s) 0 betamethasone Top valerate 0.1% Crm 15 gram: 1 karen, Topical, BID, 15 gram, Refill(s) 0 Physical Examination Vital Signs (last 24 hrs) Last Charted Temp Oral 36.6 DegC (SEP 17 15:38) Heart Rate Peripheral H 123bpm (SEP 17 10:27) Resp Rate 16 br/min (SEP 16 18:07) SBP H 143mmHg (SEP 17 15:39) DBP 71 mmHg (SEP 17 15:39) SpO2 100 % (SEP 17 15:39) Weight 86.5 kg (SEP 17 05:37) BMI 36.03 (SEP 16 18:48) General: in Nad Abdomen: Soft, NTND Impression and Plan This is a patient 73-year-old lady with past medical history of GERD who presented to the ED from primary care office with symptomatic anemia of hemoglobin of 6.4 She was noted to have symptomatic microcytic anemia, responded to transfusion, no signs of active bleeding it is reasonable to proceed with EGD push and colonoscopy tomorrow Replace iron by primary team [facility] Comment on above: Result Comment: Elec tronically Signed By: Taty Gao MD\.br\Date and Time Signed: 09/18/23 09:19 EST Endoscopic Procedure Report - Otheron 09-18-2023 Endoscopic Procedure Report - Other Patient: STAS HUANG Age: 73 years Sex: Female : 1950 Associated Diagnoses: None Author: Taty Gao MD Pre-Procedure Procedure Date 09/18/2023 10:08:00 . Procedure Type: Colonoscopy. Procedure provider Performed by Taty Gao MD. Current history and physical Documented on chart. Colorectal neoplasm risk assessment Average risk. Informed Consent After discussing the rationale, risks and benefits, and alternatives to this procedure, the patient provided signed consent for the procedure. Pre-procedure diagnosis: Diagnostic: Iron deficiency anemia. Medications Anticoagulant/antiplat elet None. ASA Classification: Class III. . Monitoring: See anesthesia record. . Procedure The procedure was performed in the hospital. See anesthesia record for sedation given during procedure. The patient was positioned starting in the left lateral decubitus position. Endoscope type used was an adult-size. The endoscope was lubricated then introduced through the anus. The scope was advanced to the terminal ileum. No difficulties encountered during the procedure. The bowel preparation quality was inadequate. The patient tolerated the procedure well. Last colonoscopy: 2021, report not available Extent reached: 13 min Time of withdrawal: 8 min Findings 1. Large internal hemorrhoids 2. Pancolonic diverticulosis, otherwise normal colon 3. Normal terminal ileum Images Procedure images: Rec_hd_video__ __13_[id number].jpg Rec_hd_video__ __07_[id number].jpg Rec_hd_video__ _[id number].jpg Rec_hd_video__ _35_[id number].jpg Rec1_hd_video__ _[id number].jpg Rec1_hd_video__ __34_268.jpg Rec1_hd_video__ _[id number].jpg Rec1_hd_video__ [id number].jpg Rec1_hd_video__ [id number].jpg . Post-Procedure Complications: none. Estimated blood loss: none. Specimens: none. Devices/ implants: none left in place. Impression and Plan 1. Large internal hemorrhoids 2. Pancolonic diverticulosis, otherwise normal colon 3. Normal terminal ileum Recommendations: Repeat colonoscopy:: Given the prep was suboptimal, this should not be considered as a screening colonoscopy, repeat colonoscopy as recommended per previous colonoscopy in 2021 . Follow-up:: in clinic with me in 1 to 2 months. Diet:: Previous. Medication resumption:: Continue current medications, Avoid NSAIDs. Return to activities:: After 24 hours. Education and Follow-up: Counseled: Patient, Family. [facility] Comment on above: Result Comment: Elec tronically Signed By: Murray MCINTYRE, Taty Freedman\.br\Date and Time Signed: 09/18/23 10:10 EST Other Comment: Kimmie bautista Attachment - attachment storage system not supported [id number] Can be viewed in source systemMissing Attachment - attachment storage system not supported [id number] Can be viewed in source systemMissing Attachment - attachment storage system not supported [id number] Can be viewed in source systemMissing Attachment - attachment storage system not supported [id number] Can be viewed in source systemMissing Attachment - attachment storage system not supported [id number] Can be viewed in source systemMissing Attachment - attachment storage system not supported [id number] Can be viewed in source systemMissing Attachment - attachment storage system not supported [id number] Can be viewed in source systemMissing Attachment - attachment storage system not supported [id number] Can be viewed in source systemMissing Attachment - attachment storage system not supported [id number] Can be viewed in source system HEMATOLOGYOrdered By: SYSTEM SYSTEM on 09-18-2023 Basophil Absolute 0.1 E9/L Normal 0.0 - 0.2 E9/L Rem isol Heme Basophils/100 WBC (Bld) 2.4 % High 0.0 - 2.0 % Remisol Heme Eos Absolute 0.2 E9/L Normal 0.0 - 0.5 E9/L Remisol Heme Eosinophils/100 WBC (Bld) 4.2 % Normal 0.0 - 8.0 % Remisol Heme Erythrocyte distribution width (RBC) [Ratio] 24.1 % High 10.9 - 14.2 % Remisol Heme Hematocrit (Bld) [Volume fraction] 26.0 % Low 34.0 - 46.0 % Remisol Heme Hemoglobin (Bld) [Mass/Vol] 8.1 g/dL Low 12.0 - 16.0 gm/dL Remisol Heme Lymph Absolute 1.3 E9/L Normal 1.0 - 4.0 E9/L Remiso l Heme Lymphocytes/100 WBC (Bld) 24.9 % Normal 14.0 - 50.0 % Remisol Heme MCH (RBC) [Entitic mass] 22.2 pg Low 27.0 - 34.0 pg Remisol Heme MCHC (RBC) [Mass/Vol] 30.6 g/dL Low 31.4 - 36.0 gm/dL Remisol Heme MCV (RBC) [Entitic vol] 72.7 fL Low 80.0 - 100.0 fL Remisol Heme Graham Absolute 0.6 E9/L Normal 0.2 - 1.0 E9/L Remisol Heme Monocytes/100 WBC (Bld) 11.8 % Normal 4.0 - 14.0 % Remisol Heme Neutro Absolute 3.0 E9/L Normal 2.0 - 7.5 E9/L Remis ol Heme Neutro Auto 56.7 % Normal 36.0 - 75.0 % Remisol Heme Platelet 369.0 E9/L Normal 150.0 - 500.0 E9/L Remisol Heme Platelet mean volume (Bld) [Entitic vol] 7.6 fL Normal 6.4 - 10.8 fL Remisol Heme RBC 3.6 E12/L Low 4.3 - 5.9 E12/L Remisol Heme WBC 5.3 E9/L Normal 4.0 - 11.0 E9/L Remisol Heme Interdisciplinary Note - Pierre e Manageron 09-18-2023 Interdisciplinary Note - [employer] spoke with patient and family in room. Patient was previous rounded on by Dr Mathews today, pataient had EGD and colonoscopy today and pending results possible dc later today or tomorrow. Patient is alert and oriented. Whiteboard updated and CRM contact # provided. Patient denies any needs at discharge. Reviewed Medicare rights, she denies questions. Normal [facility] Comment on above: Result Comment: Elec tronically Signed By: Delonte MARQUEZ, Abbie\.br\Date and Time Signed: 09/18/23 11:15 EST Main OR PACU I Recordon 08-30 Main OR PACU I Record PACU Phase I Docum ent Type FT Summary Primary Physician: Murray MCINTYRE, Taty Feredman Finalized Date/Time: 09/18/23 10:57:29 Pt. Name: STAS HUANG./Sex: 1950 Female Med Rec #: [id number] Physician: Nathaniel Mathews DO Financial #: [id number] Pt. Type: I Room/Bed: [place] [address] Admit/Disch: 09/16/23 15:09:12 - Institution: Case Times PACU I FT Pre-Care Text: Identifies barriers to communication and implements measures to provide psychological support Develops individualized plan of care, and ensures continuity of care Maintains patient's dignity and privacy, and maintains patient confidentiality Identifies and reports philosophical, cultural, and spiritual beliefs and values Identifies individual values and wishes concerning care Implements aseptic technique, and administers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 Note-Physicianon Progress Note-Physician Assessment/Plan 1. Symptomatic anemia (D64.9: Anemia, unspecified) Improved status post blood transfusion GI consulted Iron 300 mg for 3 days Likely EGD and colonoscopy on 09/18, will give bowel prep NPO at midnight Ordered: Sbsq Hospital Care/Day Moderate 35 Minutes [id number] 2. Iron deficiency anemia (D50.9: Iron deficiency anemia, unspecified) IV iron 300 mg for 3 days Trend 3. GERD (gastroesophageal reflux disease) (K21.9: Gastro-esophageal reflux disease without esophagitis) PPI twice daily 4. HTN (hypertension) (I10: Essential (primary) hypertension) Monitor HCTZ, losartan 5. Pure hypercholesterolemia (E78.00: Pure hypercholesterolemia, unspecified) Statin Orders: acetaminophen, 650 mg = 2 tab(s), Tab, Oral, q6hr PRN Pain, Routine, Start date 09/16/23 19:05:00 EST, 09/16/23 19:05:00 EST aspirin, 81 mg = 1 tab(s), Tab-EC, Oral, Daily, Routine, Start date 09/17/23 9:00:00 EST, 09/16/23 19:10:00 EST atorvastatin, 10 mg = 0.5 tab(s), Tab, Oral, Bedtime, Routine, Start date 09/16/23 21:00:00 EST, 09/16/23 19:10:00 EST hydrALAZINE, 10 mg = 0.5 mL, Injection, IV Push, q6hr PRN Other (see comment), Routine, Start date 09/16/23 19:05:00 EST, 09/16/23 19:05:00 EST hydrochlorothiazide, 12.5 mg = 1 tab(s), Tab, Oral, Daily, Routine, Start date 09/17/23 9:00:00 EST, 09/16/23 19:10:00 EST iron sucrose + Sodium Chloride 0.9% intravenous solution 250 mL, 300 mg = 15 mL, Soln-IV, IV Piggyback, Daily for 3 day(s), Stop date 09/20/23 8:59:00 EST, Routine, Start date 09/17/23 9:00:00 EST, 176.67 mL/hr, Infuse over 1.5 hour(s) losartan, 100 mg = 2 tab(s), Tab, Oral, Daily, Routine, Start date 09/17/23 9:00:00 EST, 09/16/23 19:10:00 EST pantoprazole, 40 mg = 10 mL, Injection, IV Push, BID, Routine, Start date 09/16/23 21:00:00 EST, 09/16/23 19:07:00 EST polyethylene glycol 3350 with electrolytes, 1 bottle(s), Oral, Once, Stop date 09/17/23 11:00:00 EST, Routine, Start date 09/17/23 11:00:00 EST, can start this evening Ambulate with Assistance Basic Metabolic Panel Basic Metabolic Panel Below the Knee Intermittent Pneumatic Compression Device Cardiac Monitoring CBC w/ Auto Diff CBC w/ Auto Diff Clear Liquid Diet Consult to Gastroenterology eGFR Intake and Output NPO Diet Occupational Therapy Evaluate Patient, Develop a Plan of Care and Implement Plan Physical Therapy Evaluate Patient, Develop a Plan of Care and Implement Plan Pulse Oximetry Resuscitation Status - Full Stool Occult Blood Vital Signs Weight Subjective Patient seen and examined. No acute events overnight. Patient denies any blood in stool and states she did have bowel movement. Patient denies any other symptoms at this time. Objective Vitals & Measurements T: 36.9 ?C(Oral) TMIN: 36.2 ?C(Oral) TMAX: 36.9 ?C(Oral) HR: 71(Peripheral) RR: 18 BP: 126/80 SpO2: 98% HT: 154.94 cm WT: 86.5 kg Intake & Output This visit (24 hour periods starting at 07:00 EST) 09/17/23 * 09/16/23 09/15/23 Total Summary Intake mL 10 350 -- Output mL -- 2 -- Fluid Balance 10 348 -- Intake (2) Blood Unit #2 Volume Infused mL -- 330 -- pantoprazole mL 10 20 -- Total 10 350 -- Output (1) Urine Voided mL -- 2 -- Total -- 2 -- Counts (0) * This column has not completed the indicated time period. Physical Exam General: Looks well, no acute distress, well-nourished, well-kept, obese Skin: Warm, dry Head: No trauma, normocephalic Neck: Trachea midline, supple, negative for JVD Eye: Conjunctive are clear, clear sclera , EOMI ENMT: oral mucosa moist, no lesions or edema nose or external ears Cardiovascular: Regular rate and rhythm, S1-S2 present, negative for murmurs rubs or gallops Respiratory: Lungs clear to auscultation, bilateral symmetric movement, negative for wheezes rales or rhonchi Chest wall: no deformity. Gastrointestinal: Abdomen soft, nontender to palpation, bowel sounds present Back: No tenderness Extremities: Range of motion intact, no edema Neurological: awake, alert, speech normal, cranial nerves II through XII intact, no sensory defects, alert and oriented x3 Psychiatric: cooperative, affect appropriate for age, pleasant Lab Results WBC: 7 E9/L (09/17/23 05:59:00) RBC: 3.6 E12/L Low (09/17/23 05:59:00) HGB: 8 gm/dL Low (09/17/23 05:59:00) Hct: 26 % Low (09/17/23 05:59:00) MCV: 73.1 fL Low (09/17/23 05:59:00) MCH: 22.4 pg Low (09/17/23 05:59:00) MCHC: 30.7 gm/dL Low (09/17/23 05:59:00) RDW: 23.4 % High (09/17/23 05:59:00) Platelet: 381 E9/L (09/17/23 05:59:00) MPV: 7.6 fL (09/17/23 05:59:00) Neutro Auto: 56 % (09/17/23 05:59:00) Lymph Auto: 28.1 % (09/17/23 05:59:00) Graham Auto: 10.8 % (09/17/23 05:59:00) Eos Auto: 3.6 % (09/17/23 05:59:00) Basophil Auto: 1.5 % (09/17/23 05:59:00) Neutro Absolute: 3.9 E9/L (09/17/23 05:59:00) Lymph Absolute: 2 E9/L (09/17/23 05:59:00) Graham Absolute: 0.8 E9/L (09/17/23 05:59:00) Eos (more content not included)... Normal [facility] Comment on above: Result Comment: Elec tronically Signed By: Nathaniel Mathews DO\.br\Date and Time Signed: 09/17/23 10:32 EST eGFRon 09-17-2023 eGFR 52 mL/min/1.73 m2 Low >=59 [facility] Comment on above: Order Comment: Order added by Discern Expert. Performed By: #### 2 [id number], [id number] #### [facility] [address] [place] [address] ABO/Rhon 09-16-2023 ABO/Rh Positive Invalid Interpretation Code [facility] Comment on above: Performed By: #### 2 [id number], [id number] #### [facility] [address] [place] [address] ABO/Rh History Checkon 09-16 ABO/Rh History Check Type verified by second s Normal [facility] Comment on above: Performed By: #### 2 [id number], [id number] #### [facility] [address] [place] [address] ABO/Rh Retypeon 09-16-2023 ABO/Rh Retype Interp Positive Invalid Interpretation Code [facility] Comment on above: Performed By: #### 1 [id number], [id number] #### [facility] [address] [place] [address] ABSCon 09-16-2023 ABSC Gel Interp Negative Normal [facility] Comment on above: Performed By: #### 2 [id number], [id number] #### [facility] [address] [place] [address] BLOOD BANKOrdered By: Marielle Ventura on 09-16-2023 ABO/Rh Interp Positive Invalid Interpretation Code [facility] [place] BB Subsection ABSC Gel Interp Negative (09/16/23 3:49 PM) Normal [facility] [place] BB Subsection Blood Bank ID#on 09-16-2023 BBID# [id number] Invalid Interpretation Code [facility] Comment on above: Performed By: #### 2 [id number], [id number] #### [facility] [address] [place] [address] CBC w/ Auto Diffon 4 Anisocytosis Ql (Bld) PRESENT Invalid Interpretation Code [facility] Comment on above: Performed By: #### 2 [id number], [id number] #### [facility] [address] [place] [address] Hypochromasia PRESENT Invalid Interpretation Code [facility] Comment on above: Performed By: #### 2 [id number], [id number] #### [facility] [address] [place] [address] Microcyte PRESENT Invalid Interpretation Code [facility] Comment on above: Performed By: #### 2 [id number], [id number] #### [facility] [address] [place] [address] Polychromasia PRESENT Invalid Interpretation Code [facility] Comment on above: Performed By: #### 2 786285, [id number] #### [facility] [address] [place] [address] RBC morphology finding Nom (Bld) SEE MORPHOLOGY Invalid Interpretation Code [facility] Comment on above: Result Comment: Kathleen enheimer bodies present Performed By: #### 2 [id number], [id number] #### [facility] [address] [place] [address] Basophil Absolute 0.1 E9/L Normal 0.0-0.2 [facility] Comment on above: Performed By: #### 2 [id number], [id number] #### [facility] [address] [place] [address] Basophils/100 WBC (Bld) 1.6 % Normal 0.0-2.0 [facility] Comment on above: Performed By: #### 2 [id number], [id number] #### [facility] [address] [place] [address] Eos Absolute 0.1 E9/L Normal 0.0-0.5 [facility] Comment on above: Performed By: #### 2 [id number], [id number] #### [facility] [address] [place] [address] Eosinophils/100 WBC (Bld) 2.0 % Normal 0.0-8.0 [facility] Comment on above: Performed By: #### 2 311796, [id number] #### [facility] [address] [place] [address] Erythrocyte distribution width (RBC) [Ratio] 16.7 % High 10.9-14.2 [facility] Comment on above: Performed By: #### 2 490108, [id number] #### [facility] [address] [place] [address] Hematocrit (Bld) [Volume fraction] 21.0 % Low 34.0-46.0 [facility] Comment on above: Performed By: #### 2 184434, [id number] #### [facility] [address] [place] [address] Hemoglobin (Bld) [Mass/Vol] 6.2 g/dL Abnormal 12.0-16.0 [facility] Comment on above: Result Comment: Resu lts called to RANDEE KELLEY by MARCIE VENTURA and read back on 09/16/2023 16:11:27. Critical Result Verified by Repeat Analysis Performed By: #### 2 [id number], [id number] #### [facility] [address] [place] [address] Lymph Absolute 1.5 E9/L Normal 1.0-4.0 [facility] Comment on above: Performed By: #### 2 [id number], [id number] #### [facility] [address] [place] [address] Lymphocytes/100 WBC (Bld) 20.7 % Normal 14.0-50.0 [facility] Comment on above: Performed By: #### 2 606328, [id number] #### [facility] [address] [place] [address] MCH (RBC) [Entitic mass] 19.8 pg Low 27.0-34.0 [facility] Comment on above: Performed By: #### 2 436036, [id number] #### [facility] [address] [place] [address] MCHC (RBC) [Mass/Vol] 29.7 g/dL Low 31.4-36.0 [facility] Comment on above: Performed By: #### 2 495652, [id number] #### [facility] [address] [place] [address] MCV (RBC) [Entitic vol] 66.7 fL Low 80.0-100.0 [facility] Comment on above: Performed By: #### 2 [id number], [id number] #### [facility] [address] [place] [address] Graham Absolute 0.6 E9/L Normal 0.2-1.0 [facility] Comment on above: Performed By: #### 2 127332, [id number] #### [facility] [address] [place] [address] Monocytes/100 WBC (Bld) 8.9 % Normal 4.0-14.0 [facility] Comment on above: Performed By: #### 2 464161, [id number] #### [facility] [address] [place] [address] Neutro Absolute 4.8 E9/L Normal 2.0-7.5 [facility] Comment on above: Performed By: #### 2 488288, [id number] #### [facility] [address] [place] [address] Neutro Auto 66.8 % Normal 36.0-75.0 [facility] Comment on above: Performed By: #### 2 998307, [id number] #### [facility] [address] [place] [address] Platelet 434.0 E9/L Normal 150.0-500.0 [facility] Comment on above: Performed By: #### 2 [id number], [id number] #### [facility] [address] [place] [address] Platelet mean volume (Bld) [Entitic vol] 7.3 fL Normal 6.4-10.8 [facility] Comment on above: Performed By: #### 2 071039, [id number] #### [facility] [address] [place] [address] RBC 3.1 E12/L Low 4.3-5.9 [facility] Comment on above: Performed By: #### 2 283208, [id number] #### [facility] [address] [place] [address] WBC 7.2 E9/L Normal 4.0-11.0 [facility] Comment on above: Performed By: #### 2 590287, [id number] #### [facility] [address] [place] [address] CHEMISTRYOrdered By: SYSTEM SYSTEM on 09-16-2023 Albumin [Mass/Vol] 3.7 g/dL Normal 3.3 - 5.0 gm/dL R emisol Chem Albumin/Globulin [Mass ratio] 1.5 {ratio} Normal 1.1 - 2.2 Remisol Chem Alk Phos 68 [iU]/d Normal 21 - 98 Int._Unit/L Remisol Chem ALT 13 [iU]/d Normal 6 - 46 Int._Unit/L Remisol Chem Anion gap [Moles/Vol] 13 mmol/L Normal 6 - 16 mEq/L R emisol Chem AST 13 [iU]/d Normal 5 - 43 Int._Unit/L Remisol Chem Bili Total 0.6 mg/dL Normal 0.0 - 1.1 mg/dL Remisol Chem Calcium [Mass/Vol] 8.7 mg/dL Low 8.9 - 11.1 mg/dL Remisol Chem Chloride [Moles/Vol] 105 mmol/L Normal 101 - 111 mmol/ L Remisol Chem CO2 [Moles/Vol] 26 mmol/L Normal 21 - 31 mmol/L Remis ol Chem Cobalamin (Vitamin B12) [Mass/Vol] 571 pg/mL Normal 50 - 1500 pg/mL Remisol Chem Creatinine [Mass/Vol] 1.2 mg/dL Normal 0.5 - 1.3 mg/d L Remisol Chem eGFR 47 mL/min/1.73 m2 Low >=59mL/min /1.73 m2 Remisol Chem Ferritin Lvl 3 ng/mL Low 11 - 307 ng/mL Remisol Chem Folate Lvl ng/mL Normal >=6.7ng/mL Remisol Chem Globulin (S) [Mass/Vol] 2.5 g/dL Normal 1.4 - 4.0 gm/dL Remisol Chem Glucose [Mass/Vol] 126 mg/dL Normal 55 - 199 mg/dL Re misol Chem Iron [Mass/Vol] 14 ug/dL Low 35 - 153 mcg/dL Og marixa Chem LDH 174 [iU]/d Normal 93 - 218 Int._Unit/L Remisol Chem Magnesium [Mass/Vol] 2.4 mg/dL Normal 1.3 - 2.4 mg/dL Remisol Chem Potassium [Moles/Vol] 3.9 mmol/L Normal 3.5 - 5.3 mmol /L Remisol Chem Protein [Mass/Vol] 6.2 g/dL Normal 6.0 - 7.8 gm/dL R emisol Chem Sodium [Moles/Vol] 140 mmol/L Normal 135 - 145 mmol/L Remisol Chem TIBC 554 ug/dL High 250 - 400 mcg/dL Remisol Chem Transferrin [Mass/Vol] 396 mg/dL High 200 - 370 mg/dL Remisol Chem Troponin 6.20 pg/mL Low 10.10 - 27.10 pg/mL Remisol Chem Comment on above: Interpretive Data: T he 95% CI (Confidence Interval) PPV (Positive Predictive Value) for myocardial infarction in females is 38 pg/mL, in males 51 pg/mL. The results should be used in conjunction with clinical conditions of myocardial infarction. (Access High Sensitivity Troponin I Instructions For Use, [place], March 2018) Urea nitrogen [Mass/Vol] 24 mg/dL High 5 - 21 mg/dL Remisol Chem Urea nitrogen/Creatinine [Mass ratio] 20 mg/mg Normal 10 - 20 Remisol Chem CMPon 09-16-2023 Albumin [Mass/Vol] 3.7 g/dL Normal 3.3-5.0 [facility] Comment on above: Performed By: #### 2 921623, 4401407, 5338932, 96226556, 56732736, 7961965, 54948960 ####[facility] [address] [place] [address] Albumin/Globulin [Mass ratio] 1.5 {ratio} Normal 1.1-2.2 [facility] Comment on above: Performed By: #### 2 486530, 7824372, 4418494, 40463978, 49096462, 8448584, 84746221 ####[facility] [address] [place] [address] Alk Phos 68 Int._Unit/L Normal 21-98 [facility] Comment on above: Performed By: #### 2 300540, 6921833, 8375971, 92681560, 94398503, 6867986, 68836367 ####[facility] [address] [place] [address] ALT 13 Int._Unit/L Normal 6-46 [facility] Comment on above: Performed By: #### 2 006148, 2920709, 1462720, 35381724, 75378863, 4822525, 32988016 ####[facility] [address] [place] [address] Anion gap [Moles/Vol] 13 mmol/L Normal 6-16 [facility] Comment on above: Performed By: #### 2 076635, 6194740, 0020611, 01264477, 92932546, 6980593, 25087720 ####[address] [place] [address] AST 13 Int._Unit/L Normal 5-43 [facility] Comment on above: Performed By: #### 2 224406, 2647000, 7283385, 62068810, 09131678, 7410823, 40198760 ####[facility] [address] [place] [address] Bili Total 0.6 mg/dL Normal 0.0-1.1 [facility] Comment on above: Performed By: #### 2 958294, 7728606, 9577343, 36161270, 96079006, 2816758, 73686082 ####[facility] [address] [place] [address] BUN/Creat Ratio 20 No Units Normal 10-20 [facility] Comment on above: Performed By: #### 2 485967, 5824173, 8506955, 97699122, 78939512, 8876304, 01111678 ####[facility] [address] [place] [address] Calcium [Mass/Vol] 8.7 mg/dL Low 8.9-11.1 [facility] Comment on above: Performed By: #### 2 959681, 8079479, 3949893, 46325437, 63298442, 1756385, 50024819 ####[facility] [address] [place] [address] Chloride [Moles/Vol] 105 mmol/L Normal 101-111 [facility] Comment on above: Performed By: #### 2 850212, 9809325, 0516354, 17712791, 68778651, 5861078, 69693692 ####[facility] [address] [place] [address] CO2 [Moles/Vol] 26 mmol/L Normal 21-31 [facility] Comment on above: Performed By: #### 2 096693, 9605494, 8070671, 70150731, 92477059, 9095423, 57806374 ####[facility] [address] [place] [address] Creatinine [Mass/Vol] 1.2 mg/dL Normal 0.5-1.3 [facility] Comment on above: Performed By: #### 2 150143, 9879600, 5238779, 28678626, 06044084, 7801132, 15531152 ####[facility] [address] [place] [address] Globulin (S) [Mass/Vol] 2.5 g/dL Normal 1.4-4.0 [facility] Comment on above: Performed By: #### 2 693230, 9115412, 5868909, 40658826, 16358048, 2966343, 03593207 ####[facility] [address] [place] [address] Glucose [Mass/Vol] 126 mg/dL Normal 55-199 [facility] Comment on above: Performed By: #### 2 939102, 2178138, 1817217, 47510758, 18124296, 1802072, 63348782 ####[facility] [address] [place] [address] Potassium [Moles/Vol] 3.9 mmol/L Normal 3.5-5.3 [facility] Comment on above: Performed By: #### 2 376005, 7649345, 4967403, 22404804, 11084048, 4238970, 65136240 ####[facility] [address] [place] [address] Protein [Mass/Vol] 6.2 g/dL Normal 6.0-7.8 [facility] Comment on above: Performed By: #### 2 398534, 1353343, 9640609, 74269683, 12157274, 3293772, 63897406 ####[facility] [address] [place] [address] Sodium [Moles/Vol] 140 mmol/L Normal 135-145 [facility] Comment on above: Performed By: #### 2 810228, 5819217, 2766837, 77667965, 64361800, 0022996, 81197858 ####[facility] [address] [place] [address] Urea nitrogen [Mass/Vol] 24 mg/dL High 5-21 [facility] Comment on above: Performed By: #### 2 020530, 6855145, 2663286, 10522210, 68664150, 2028357, 20132390 ####[facility] [address] [place] [address] COAGULATIONOrdered By: Chayo Justin on 09-16-2023 aPTT Coag (PPP) [Time] 34.6 s Normal 25.1 - 36.5 second(s) [facility] Comment on above: Interpretive Data: Greta esquivel 15 days - 4 weeks 1 - 5 months 6 - 11 months 1 - 5 years 6 - 10 years 11 - 17 years PTT Mean: 35.4 (27.6-45.6) Mean: 33.5 (24.8-40.7) Mean: 32.4 (25.1-40.7) Mean: 31.6 (24.0-39.2) Mean: 31.6 (26.9-38.7) Mean: 31.0 (24.6-38.4) Pediatric Reference ranges were obtained from a study by jose Spencer al. prepared from 1437 samples obtained at 7 different centers using the same coagulation reagent and instrumentation as [facility]. Currently there are no coagulation studies available worldwide for children to 14 days, and no normal ranges. Heparin therapeutic range (represented by Anti-Factor Xa activity of 0.2 - 0.4 U/mL) corresponds to PTT of 56.6 - 109.0 sec. INR Coag (PPP) [Relative time] 1.0 {INR} Invalid Interpretation Code [facility] Comment on above: Interpretive Data: I NR results are specifically intended to assess patients stabilized on long-term Anticoagulation therapy suggested INR s Less Intensive Anticoagulation 2.0 3.0 Conventional Range 3.0 4.5 PT Coag (PPP) [Time] 11.7 s Normal 9.4 - 1 2.5 second(s) [facility] Comment on above: Interpretive Data: 1 5 days - 4 weeks 1 - 5 months 6 -11 months 1-5 years 6-10 years 11 -17 years Mean: 11.2 (9.5-12.6) Mean: 11.0 (9.7-12.8) Mean: 11.0 (9.8-13.0) Mean: 11.3 (9.9-13.4) Mean: 11.7 (10.0-14.6) Mean: 11.8 (10.0 - 14.1) Pediatric Reference ranges were obtained from a study by jose Spencer al. prepared from 1437 samples obtained at 7 different centers using the same coagulation reagent and instrumentation as [facility]. Currently there are no coagulation studies available worldwide for children to 14 days, and no normal ranges. Consent for Blood Transfusio non 09-16-2023 Consent for Blood Transfusion [id number]#1. 00TIFF [facility] Consent for Treatmenton 08-29 Consent for Treatment [id number]#1.[address] [facility] Ferritinon 09-16-2023 Ferritin Lvl 3 ng/mL Low 11-307 [facility] Comment on above: Performed By: #### 1 0594699, 1143553, 07344953 #### [facility] [address] [place] [address] Folateon 09-16-2023 Folate Lvl >22.3 Normal >=6.7 [facility] Comment on above: Performed By: #### 1 0067643, 4629666, 27749254 #### [facility] [address] [place] [address] HEMATOLOGYOrdered By: Marielle Ventura on 09-16-2023 Anisocytosis Ql (Bld) PRESENT Invalid Interpretation Code Rem[facility] Heme Hypochromasia PRESENT Invalid Interpretation Code [facility] Hem[facility] Microcyte PRESENT Invalid Interpretation Code Remisol Heme Polychromasia PRESENT Invalid Interpretation Code [facility] Heme RBC morphology finding Nom (Bld) SEE MORPHOLOGY Invalid Interpretation Code [facility] Comment on above: Result Comment: Kathleen enheimer bodies present HEMATOLOGYOrdered By: SYSTEM SYSTEM on 09-16-2023 Reticulocyte 1.1 % Normal 0.5 - 1.5 % Remisol Heme Ironon 09-16-2023 Iron 14 microgram/dL Low 35-153 [facility] Comment on above: Performed By: #### 1 5008706, 1006852, 40357465 #### [facility] [address] [place] [address] LDHon 09-16-2023 LDH 174 Int._Unit/L Normal 93-218 [facility] Comment on above: Performed By: #### 1 0889447, 8502449, 27159547 #### [facility] [address] [place] [address] Magnesiumon 09-16-2023 Magnesium [Mass/Vol] 2.4 mg/dL Normal 1.3-2.4 [facility] Comment on above: Performed By: #### 2 742985, 6580210, 5019673, 97309036, 55882951, 7534213, 65680789 ####[facility] [address] [place] [address] Monitor Recordon 09-16-2023 Monitor Record [id number]#1. 00TIFF Normal [facility] PT & PTTon 09-16-2023 aPTT Coag (PPP) [Time] 34.6 second(s) Normal 25.1-36.5 [facility] Comment on above: Result Comment: Para meter 15 days - 4 weeks 1 - 5 months 6 - 11 months 1 - 5 years 6 - 10 years 11 - 17 years PTT Mean: 35.4 (27.6-45.6) Mean: 33.5 (24.8-40.7) Mean: 32.4 (25.1-40.7) Mean: 31.6 (24.0-39.2) Mean: 31.6 (26.9-38.7) Mean: 31.0 (24.6-38.4) Pediatric Reference ranges were obtained from a study by Neal Burrows et al. prepared from 1437 samples obtained at 7 different centers using the same coagulation reagent and instrumentation as [facility]. Currently there are no coagulation studies available worldwide for children to 14 days, and no normal ranges. Heparin therapeutic range (represented by Anti-Factor Xa activity of 0.2 - 0.4 U/mL) corresponds to PTT of 56.6 - 109.0 sec. Performed By: #### 2 475701, 9184929, 4363573, 77033940, 74445854, 4071854, 16119711 ####[facility] [address] [place] [address] INR Coag (PPP) [Relative time] 1.0 {INR} Invalid Interpretation Code [facility] Comment on above: Result Comment: INR results are specifically intended to assess patients stabilized on long-term Anticoagulation therapy suggested INR?s ?Less Intensive Anticoagulation? 2.0 ? 3.0 Conventional Range 3.0 ? 4.5 Performed By: #### 2 025690, 4796262, 6498080, 28212933, 63144968, 2915742, 88633940 ####[facility] [address] [place] [address] PT Coag (PPP) [Time] 11.7 second(s) Normal 9.4-12.5 [facility] Comment on above: Result Comment: 15 d ays - 4 weeks 1 - 5 months 6 -11 months 1- 5 years 6-10 years 11 -17 years Mean: 11.2 (9.5-12.6) Mean: 11.0 (9.7-12.8) Mean: 11.0 (9.8-13.0) Mean: 11.3 (9.9-13.4) Mean: 11.7 (10.0-14.6) Mean: 11.8 (10.0 - 14.1) Pediatric Reference ranges were obtained from a study by Neal Burrows et al. prepared from 1437 samples obtained at 7 different centers using the same coagulation reagent and instrumentation as [facility]. Currently there are no coagulation studies available worldwide for children to 14 days, and no normal ranges. Performed By: #### 2 717639, 3257111, 8125020, 83988978, 51531360, 0200387, 91134316 ####[facility] [address] [place] [address] Path. Reviewon 09-16-2023 Path Review Morphology and indic is suggestive of iron deficiency anemia. Mild polychromasia noted. Occasional target cells are present. Clinical correlation is indicated for etiology. Invalid Interpretation Code [facility] Comment on above: Performed By: #### 1 0799861, 8366677, 37847236 #### [facility] [address] [place] [address] Path. Review Morphology and indic is suggestive of iron deficiency anemia. Mild polychromasia noted. Occasional target cells are present. Clinical correlation is indicated for etiology. D50.9 CPT 11746 Invalid Interpretation Code [facility] RCOon 09-16-2023 # of Units 2 Invalid Interpretation Code [facility] Comment on above: Performed By: #### 2 019139, 36401365 #### [facility] [address] [place] [address] Date Required [id number] Invalid Interpretation Code [facility] Comment on above: Performed By: #### 2 619303, 15981484 #### [facility] [address] [place] [address] Order to Transfuse Yes Normal [facility] Comment on above: Result Comment: 09/16 16:55 [id number] Blood product ready and called to Karissa at 09/16/2023 16:55:38 EST by Marcie Ventura. Performed By: #### 2 734910, 78874302 #### [facility] [address] [place] [address] Product Type None Required Invalid Interpretation Code [facility] Comment on above: Performed By: #### 2 048266, 99958812 #### [facility] [address] [place] [address] Reminderson 09-16-2023 Reminders - From: Liana Simental To: [facility] - Clinical; Sent: 09/16/2023 14:55:31 EST Show up: 09/16/2023 14:56:00 EST Subject: Ambulatory Reminder Due Date/Time: 09/17/2023 14:55:00 EST Pt called and instructed to go to ER Results: Date Result Name Ind Value Ref Range 09/15/2023 11:01 WBC 6.6 E9/L (4.0 - 11.0) 09/15/2023 11:01 RBC ((L)) 3.4 E12/L (4.3 - 5.9) 09/15/2023 11:01 HGB ((!)) 6.4 gm/dL (12.0 - 16.0) 09/15/2023 11:01 Hct ((L)) 23.0 % (34.0 - 46.0) 09/15/2023 11:01 MCV ((L)) 68.0 fL (80.0 - 100.0) 09/15/2023 11:01 MCH ((L)) 18.9 pg (27.0 - 34.0) 09/15/2023 11:01 MCHC ((L)) 27.8 gm/dL (31.4 - 36.0) 09/15/2023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 risk HDL < 40 mg/dL : High cardiovascular risk Performed By: #### 2 934620, 6511782931, 1172262, 2859550389, 86252997 ####[facility] [address] [place] [address] Cholesterol in LDL [Mass/Vol] 69 mg/dL Normal <=129 [facility] Comment on above: Performed By: #### 2 997112, 1897170114, 6172393, 3595751070, 08193358 ####[facility] [address] [place] [address] Cholesterol in VLDL [Mass/Vol] 20 mg/dL Normal 7-40 [facility] Comment on above: Performed By: #### 2 183824, 1830625232, 7622973, 7443282300, 03006421 ####[facility] [address] [place] [address] Triglyceride [Mass/Vol] 98 mg/dL Normal <=149 [facility] Comment on above: Performed By: #### 2 149795, 3630856028, 6110497, 3469306130, 08537957 ####[facility] [address] [place] [address] Patient Educationon 04-26-20 23 Patient Education Caregiving [...] night-lights. ? Place frequently used items in yjnl-xr-uxomr places. Lower the shelves around your home [...] the way. ? Do not use floor chinese or wax that makes floors slippery. If [...] include working with a physical therapist or field sales trainer to improve your strength, balance, and endurance. Where to find more information ? Centers for Disease Control and Prevention, [place]: www.cdc.gov ? National [place] on Aging: www.celio.nih.gov Contact a health care [...] health ca (more content not included)... Normal [facility] Screenson 04-26-2023 Screens [id number] 0CD:127 Normal [facility] eGFRon 04-26-2023 GFR/1.73 sq M.predicted among non-blacks MDRD (S/P/Bld) [Vol rate/Area] 67 mL/min/1.73 m2 Normal >=59 [facility] Comment on above: Order Comment: Order added by Discern Expert. 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 Kidney failure is indicated at less than 15 mL/min/1.73m2. Performed By: #### 2 277739, [id number], 6581036, 8120712055, 28262327 ####[facility] [address] [place] [address] XR ABD FLAT_UPon 06-01-2022 XR ABD FLAT_UP [...] JIMI BARRIOS Date: 2022-06-01 12:34 Normal [facility] CBC AUTO DIFFon 05-07-2022 BASO # 0.1 103/ul Normal 0.0-0.1 [facility] [place] [facility] Comment on above: Performed By: #### C BC #### [facility] [address] [address] [address] Maggie Enriquez Basophils/100 WBC (Bld) 1.1 % Normal 0.2-2.0 [facility] Comment on above: Performed By: #### C BC #### [facility] [address] [address] [address] Maggie Enriquez EO # 0.2 103/ul Normal 0.0-0.7 [facility] [place] [facility] Comment on above: Performed By: #### C BC #### [facility] [address] [address] [address] Maggie Enriquez Eosinophils/100 WBC (Bld) 2.8 % Normal 0.9-7.0 [facility] [place] [facility] Comment on above: Performed By: #### C BC #### [facility] [address] [place] [address] Dr. Maggie Enriquez Erythrocyte distribution width (RBC) [Ratio] 12.5 % Normal 11.0-15.0 [facility] [place] [facility] Comment on above: Performed By: #### C BC #### [facility] [address] [place] [address] Dr. Maggie Enriquez Hematocrit (Bld) [Volume fraction] 37.0 % Normal 36.0-48.0 [facility] [place] [facility] Comment on above: Performed By: #### C BC #### [facility] [address] [place] [place] [address] Dr. Maggie Enriquez Hemoglobin (Bld) [Mass/Vol] 12.1 g/dL Normal 12.0-16.0 [facility] Comment on above: Performed By: #### C BC #### [facility] [address] [place] [address] Dr. Maggie Enriquez IG # 0.02 10e3/ul Normal 0.00-0.03 [facility] [place] [facility] Comment on above: Performed By: #### C BC #### [facility] [address] [place] [address] Dr. Maggie Enriquez IG % 0.3 % Normal 0.0-0.5 [facility] [place] [facility] Comment on above: Performed By: #### C BC #### [facility] [address] [place] [address] Dr. Maggie Enriquez LYMPH # 2.1 103/ul Normal 1.2-3.8 [facility] Comment on above: Performed By: #### C BC #### [facility] [address] [place] [place] [address] Dr. Maggie Enriquez Lymphocytes/100 WBC (Bld) 32.7 % Normal 20.5-60.0 [facility] Comment on above: Performed By: #### C BC #### [facility] [address] [place] [place] [address] Dr. Maggie Enriquez MANUAL DIFF REQ NO Normal [facility] Comment on above: Performed By: #### C BC #### [facility] [address] [place] [place] [address] Dr. Maggie Enriquez MCH (RBC) [Entitic mass] 29.0 pg Normal 26.7-34.0 [facility] [place] [facility] Comment on above: Performed By: #### C BC #### [facility] [address] [place] [place] [address] Dr. Maggie Enriquez MCHC (RBC) [Mass/Vol] 32.7 g/dL Normal 29.9-35.2 [facility] Comment on above: Performed By: #### C BC #### [facility] [address] [place] [place] [address] Dr. Maggie Enriquez MCV (RBC) [Entitic vol] 88.7 fL Normal 81.0-99.0 [facility] [place] [facility] Comment on above: Performed By: #### C BC #### [facility] [address] [place] [place] [address] Dr. Maggie Enriquez MONO # 0.6 103/ul Normal 0.3-0.8 [facility] [place] [facility] Comment on above: Performed By: #### C BC #### [facility] [address] [place] [place] [address] Dr. Maggie Enriquez Monocytes/100 WBC (Bld) 9.4 % Normal 1.7-12.0 [facility] [place] [facility] Comment on above: Performed By: #### C BC #### [facility] [address] [place] [place] [address] Dr. Maggie Enriquez NEUT # 3.5 103/ul Normal 1.4-6.5 [facility] Comment on above: Performed By: #### C BC #### [facility] [address] [place] [place] [address] Dr. Maggie Enriquez Neutrophils/100 WBC (Bld) 53.7 % Normal 43.0-75.0 [facility] Comment on above: Performed By: #### C BC #### [facility] [address] [place] [place] [address] Dr. Maggie Enriquez Platelet mean volume (Bld) [Entitic vol] 9.5 fL Normal 9.5-13.5 [facility] [place] [facility] Comment on above: Performed By: #### C BC #### [facility] [address] [place] [place] [address] Dr. Maggie Enriquez PLT 254 103/ul Normal 150-450 [facility] [place] [facility] Comment on above: Performed By: #### C BC #### [facility] [address] [address] [address] Maggie Enriquez RBC 4.17 106/ul Critically low 4.20-5.40 [facility] [place] [facility] Comment on above: Performed By: #### C BC #### [facility] [id number] Maggie Enriquez WBC 6.5 103/ul Normal 4.0-11.0 [facility] [place] [facility] Comment on above: Performed By: #### C BC #### [facility] [address] [address] [address] Maggie Enriquez COVID-19 SOFIAOrdered By: Kati Starr on 04-22-2022 SARS-CoV+SARS-CoV-2 (COVID-19) Ag IA.rapid Ql (Resp) Negative Negative [facility] [facility] Comment on above: This is a duplicate Ananya SARS Antigen (FELIBERTO) result to be used for statistical tracking purpose only. No Panel InformationOrdered By: Violeta Starr on 04-22-2022 SARS Antigen (LFIA) [facility] MG MAMM SCREEN 3D SKYLER CADon 03-08-2022 MG MAMM SCREEN 3D SKYLER CAD Patient: STAS HUANG Exam Date: 03/08/2022 : 1950 Gender:F Ordering : DR PHAM SAUCEDO . Admission #: [id number] Family : Order #: [id number] CLICK HERE TO VIEW EXAM RADIOLOGY REPORT PROCEDURE: MAMMOGRAM SCREENING 3D BILATERAL CAD COMPARISON: MG MAMM SCREEN SKYLER W CAD, 07/24/2018. MG MAMM SCREEN SKYLER W CAD, 07/27/2019. INDICATIONS: Screening mammography Calculator Name NCI Breast Cancer Risk Assessment Tool 5 Year Breast Cancer Risk 1.40% Lifetime Breast Cancer Risk 3.20% Personal Breast Cancer No Personal Ovarian Cancer No Treatments None Family Cancers Aunt-maternal with breast cancer at age 58. LOCATION: [facility] BREAST COMPOSITION: Scattered areas fibroglandular density. FINDINGS: [...] MD on 03/08/2022 at 12:46 Normal [facility] CBC AUTO DIFFon 03-02-2022 BASO # 0.1 103/ul Normal 0.0-0.1 [facility] Comment on above: Performed By: #### C BC #### [facility] Laboratory [address] [address] Dr. Maggie Enriquez Basophils/100 WBC (Bld) 0.9 % Normal 0.2-2.0 [facility] Comment on above: Performed By: #### C BC #### [facility] Laboratory [address] [place] [address] Dr. Maggie Enriquez EO # 0.1 103/ul Normal 0.0-0.7 [facility] Comment on above: Performed By: #### C BC #### [facility] Laboratory [address] [place] [address] Dr. Maggie Enriquez Eosinophils/100 WBC (Bld) 2.2 % Normal 0.9-7.0 [facility] Comment on above: Performed By: #### C BC #### [facility] Laboratory [address] [place] [address] Dr. Maggie Enriquez Erythrocyte distribution width (RBC) [Ratio] 13.0 % Normal 11.0-15.0 [facility] Comment on above: Performed By: #### C BC #### [facility] Laboratory [address] [place] [address] Dr. Maggie Enriquez Hematocrit (Bld) [Volume fraction] 38.7 % Normal 36.0-48.0 [facility] Comment on above: Performed By: #### C BC #### [facility] Laboratory [address] [place] [place] [address] Dr. Maggie Enriquez Hemoglobin (Bld) [Mass/Vol] 12.4 g/dL Normal 12.0-16.0 [facility] Comment on above: Performed By: #### C BC #### [facility] Laboratory [address] [place] [place] [address] Dr. Maggie Enriquez IG # 0.02 10e3/ul Normal 0.00-0.03 [facility] Comment on above: Performed By: #### C BC #### [facility] Laboratory [address] [place] [address] Dr. Maggie Enriquez IG % 0.3 % Normal 0.0-0.5 [facility] Comment on above: Performed By: #### C BC #### [facility] [address] [address] Dr. Maggie Enriquez LYMPH # 2.0 103/ul Normal 1.2-3.8 [facility] Comment on above: Performed By: #### C BC #### [facility] Laboratory [address] [place] [place] [address] Dr. Maggie Enriquez Lymphocytes/100 WBC (Bld) 33.9 % Normal 20.5-60.0 [facility] Comment on above: Performed By: #### C BC #### [facility] [address] [place] [address] Dr. Mgagie Enriquez MANUAL DIFF REQ NO Normal [facility] Comment on above: Performed By: #### C BC #### [facility] Laboratory [address] [place] [address] Dr. Maggie Enriquez MCH (RBC) [Entitic mass] 29.2 pg Normal 26.7-34.0 [facility] Comment on above: Performed By: #### C BC #### [facility] Laboratory [address] [place] [address] Dr. Maggie Enriquez MCHC (RBC) [Mass/Vol] 32.0 g/dL Normal 29.9-35.2 [facility] Comment on above: Performed By: #### C BC #### [facility] Laboratory [address] [place] [place] [address] Dr. Maggie Enriquez MCV (RBC) [Entitic vol] 91.1 fL Normal 81.0-99.0 [facility] Comment on above: Performed By: #### C BC #### [facility] Laboratory [address] [address] [address] Maggie Enriquez MONO # 0.5 103/ul Normal 0.3-0.8 [facility] Comment on above: Performed By: #### C BC #### [facility] [address] [address] [address] Maggie Enriquez Monocytes/100 WBC (Bld) 8.6 % Normal 1.7-12.0 [facility] Comment on above: Performed By: #### C BC #### [facility] Laboratory [address] [address] [address] Maggie Enriquez NEUT # 3.1 103/ul Normal 1.4-6.5 [facility] Comment on above: Performed By: #### C BC #### [facility] [address] [place] [place] [address] Dr. Maggie Enriquez Neutrophils/100 WBC (Bld) 54.1 % Normal 43.0-75.0 [facility] Comment on above: Performed By: #### C BC #### [facility] Laboratory [address] [address] [address] Maggie Enriquez Platelet mean volume (Bld) [Entitic vol] 10.2 fL Normal 9.5-13.5 [facility] Comment on above: Performed By: #### C BC #### [facility] Laboratory [address] [address] [address] Maggie Enriquez PLT 246 103/ul Normal 150-450 [facility] Comment on above: Performed By: #### C BC #### [facility] Laboratory [address] [address] [address] Maggie Enriquez RBC 4.25 106/ul Normal 4.20-5.40 [facility] Comment on above: Performed By: #### C BC #### [facility] Laboratory [address] [address] [address] Maggie Enriquez WBC 5.8 103/ul Normal 4.0-11.0 [facility] Comment on above: Performed By: #### C BC #### [facility] [address] [place], [place] [address] Dr. Maggie Enriquez LIPID PROFILEon 03-02-2022 CHOL-HDL RATIO NORM SEE BELOW Normal [facility] Comment on above: Result Comment: 3.3 - 4.4 LOW RISK 4.4 - 7.1 AVERAGE RISK 7.1 - 11.0 MODERATE RISK >11.0 HIGH RISK Performed By: #### C MP, LIPID, TSH ####[facility] [address] [id number]. Maggie Enriquez Cholesterol [Mass/Vol] 175 mg/dL Normal <=200 [facility] Comment on above: Performed By: #### C MP, LIPID, TSH ####[facility] [address] [id number] Enriquez Cholesterol in HDL [Mass/Vol] 45 mg/dL Normal 40-60 [facility] Comment on above: Performed By: #### C MP, LIPID, TSH ####[facility] [address] [id number]. Maggie Enriquez Cholesterol in LDL [Mass/Vol] 102.0 mg/dL Normal [facility] Comment on above: Performed By: #### C MP, LIPID, TSH ####[facility] [address] [id number]. Maggie Enriquez Cholesterol.total/Cho lesterol in HDL [Mass ratio] 3.9 {ratio} Normal [facility] Comment on above: Performed By: #### C MP, LIPID, TSH ####[facility] [address] [id number]. Maggie Enriquez HDL NORMAL > or = 60 mg/dl - LO W CARDIOVASCULAR RISK <40 mg/dl - HIGH CARDIOVASCULAR RISK Normal [facility] Comment on above: Performed By: #### C MP, LIPID, TSH ####[facility] [address] [id number]. Maggie Enriquez LDL CALC NORMAL SEE BELOW Normal [facility] Comment on above: Result Comment: <100 mg/dl OPTIMAL 100 - 129 mg/dl NEAR OR ABOVE OPTIMAL 130 - 159 mg/dl BORDERLINE HIGH 160 - 189 mg/dl HIGH >190 mg/dl VERY HIGH Performed By: #### C MP, LIPID, TSH ####[facility] [address] [place], [place] [address]KqDr. Maggie Enriquez Triglyceride [Mass/Vol] 140 mg/dL Normal <=150 [facility] Comment on above: Performed By: #### C MP, LIPID, TSH ####[facility] [address] [place], [place] [address]GkDr. Maggie Enriquez VLDL CALC 28.0 mg/dL Normal [facility] Comment on above: Performed By: #### C MP, LIPID, TSH ####[facility] [address] [place], [place] [address]XfDr. Maggie Enriquez PROF 14(COMP METB)on 022 Albumin [Mass/Vol] 3.3 g/dL Critically low 3.4-5.0 [facility] Comment on above: Performed By: #### C MP, LIPID, TSH #### [facility] Laboratory [address] [address] [address] Maggie Enriquez Albumin/Globulin [Mass ratio] 1.0 {ratio} Normal [facility] Comment on above: Performed By: #### C MP, LIPID, TSH #### [facility] [address] [address] [address] Maggie Enriquez ALP [Catalytic activity/Vol] 74 U/L Normal 46-116 [facility] Comment on above: Performed By: #### C MP, LIPID, TSH #### [facility] [address] [address] [address] Maggie Enriquez ALT [Catalytic activity/Vol] 32 U/L Normal 14-59 [facility] Comment on above: Performed By: #### C MP, LIPID, TSH #### [facility] Laboratory [address] [address] [address] Maggie Enriquez Anion gap [Moles/Vol] 11.6 mmol/L Normal [facility] Comment on above: Performed By: #### C MP, LIPID, TSH #### [facility] [address] [address] [address] Maggie Enriquez AST [Catalytic activity/Vol] 24 U/L Normal 15-37 [facility] Comment on above: Performed By: #### C MP, LIPID, TSH #### [facility] Laboratory [address] [place] [place] [address] Dr. Maggie Enriquez Bilirubin [Mass/Vol] 0.9 mg/dL Normal 0.2-1.0 [facility] Comment on above: Performed By: #### C MP, LIPID, TSH #### [facility] [address] [place] [place] [address] Dr. Maggie Enriquez Calcium [Mass/Vol] 8.8 mg/dL Normal 8.5-10.1 [facility] Comment on above: Performed By: #### C MP, LIPID, TSH #### [facility] [address] [place] [place] [address] Dr. Maggie Enriquez Chloride [Moles/Vol] 106 mmol/L Normal 98-107 [facility] Comment on above: Performed By: #### C MP, LIPID, TSH #### [facility] [address] [place] [place] [address] Dr. Maggie Enriquez CO2 [Moles/Vol] 28.8 mmol/L Normal 21.0-32.0 [facility] Comment on above: Performed By: #### C MP, LIPID, TSH #### [facility] [address] [place] [place] [address] Dr. Maggie Enriquez Creatinine [Mass/Vol] 0.75 mg/dL Normal 0.55-1.02 [facility] Comment on above: Performed By: #### C MP, LIPID, TSH #### [facility] [address] [place] [address] Dr. Maggie Enriquez EGFR-AF JAMAICAN >60 Normal >=60 [facility] Comment on above: Performed By: #### C MP, LIPID, TSH #### [facility] [address] [place] [address] Dr. Maggie Enriquez EGFR-NON AF J[place]ICAN >60 Normal >=60 [facility] Comment on above: Performed By: #### C MP, LIPID, TSH #### [facility] [address] [place] [address] Dr. Maggie Enriquez Globulin (S) [Mass/Vol] 3.3 g/dL Normal [facility] Comment on above: Performed By: #### C MP, LIPID, TSH #### [facility] Laboratory [address] [place] [address] Dr. Maggie Enriquez Glucose [Mass/Vol] 95 mg/dL Normal 74-106 [facility] Comment on above: Performed By: #### C MP, LIPID, TSH #### [facility] [address] [place] [address] Dr. Maggie Enriquez Potassium [Moles/Vol] 4.4 mmol/L Normal 3.5-5.1 [facility] Comment on above: Performed By: #### C MP, LIPID, TSH #### [facility] [address] [place] [address] Dr. Maggie Enriquez Protein [Mass/Vol] 6.6 g/dL Normal 6.4-8.2 [facility] Comment on above: Performed By: #### C MP, LIPID, TSH #### [facility] Laboratory [address] [place] [address] Dr. Maggie Enriquez Sodium [Moles/Vol] 142 mmol/L Normal 136-145 [facility] Comment on above: Performed By: #### C MP, LIPID, TSH #### [facility] [address] [place] [address] Dr. Maggie Enriquez Urea nitrogen [Mass/Vol] 12.0 mg/dL Normal 7.0-18.0 [facility] Comment on above: Performed By: #### C MP, LIPID, TSH #### [facility] [address] [place] [address] Dr. Maggie Enriquez Urea nitrogen/Creatinine [Mass ratio] 16.0 mg/mg Normal [facility] Comment on above: Performed By: #### C MP, LIPID, TSH #### [facility] [address] [place] [place] [address] Dr. Maggie Enriquez TSHon 03-02-2022 TSH 3.460 uIU/mL Normal 0.358-3.740 [facility] Comment on above: Performed By: #### C MP, LIPID, TSH ####[facility] [address] [place], [place] [address]QyDr. Maggie Enriquez VITAMIN D 25 OHon 03-02-2022 VIT D 25-OH 64.9 ng/mL Normal [facility] Comment on above: Performed By: #### V ITAD #### [facility] [address] [place] [address] Dr. Maggie Enriquez VIT D RANGES SEE BELOW Normal [facility] Comment on above: Result Comment: <20 ng/mL Vit D deficient 20 - <30 ng/mL Vit D insufficient 30 - 100 ng/mL Vit D sufficient >100 ng/mL Potential Toxicity Performed By: #### V ITAD #### [facility] [address] [place] [address] Dr. Maggie Enriquez CBC AUTO DIFFon 07-10-2021 BASO # 0.1 103/ul Normal 0.0-0.1 [facility] Comment on above: Performed By: #### C BC #### [facility] [address] [place] [address] Dr. Maggie Enriquez Basophils/100 WBC (Bld) 1.0 % Normal 0.2-2.0 [facility] Comment on above: Performed By: #### C BC #### [facility] [address] [place] [address] Dr. Maggie Enriquez EO # 0.1 103/ul Normal 0.0-0.7 [facility] Comment on above: Performed By: #### C BC #### [facility] [address] [place] [address] Dr. Maggie Enriquez Eosinophils/100 WBC (Bld) 1.8 % Normal 0.9-7.0 [facility] Comment on above: Performed By: #### C BC #### [facility] [address] [place] [address] Dr. Maggie Enriquez Erythrocyte distribution width (RBC) [Ratio] 12.8 % Normal 11.0-15.0 [facility] Comment on above: Performed By: #### C BC #### [facility] [address] [place] [address] Dr. Maggie Enriquez Hematocrit (Bld) [Volume fraction] 41.8 % Normal 36.0-48.0 [facility] Comment on above: Performed By: #### C BC #### [facility] [address] [place] [address] Dr. Maggie Enriquez Hemoglobin (Bld) [Mass/Vol] 13.5 g/dL Normal 12.0-16.0 [facility] Comment on above: Performed By: #### C BC #### [facility] [address] [address] Dr. Maggie Enriquez IG # 0.02 10e3/ul Normal 0.00-0.03 [facility] Comment on above: Performed By: #### C BC #### [facility] [address] [place] [address] Dr. Maggie Enriquez IG % 0.3 % Normal 0.0-0.5 [facility] Comment on above: Performed By: #### C BC #### [facility] [address] [place] [address] Dr. Maggie Enriquez LYMPH # 2.4 103/ul Normal 1.2-3.8 [facility] Comment on above: Performed By: #### C BC #### [facility] [address] [place] [address] Dr. Maggie Enriquez Lymphocytes/100 WBC (Bld) 38.2 % Normal 20.5-60.0 [facility] Comment on above: Performed By: #### C BC #### [facility] [address] [place] [address] Dr. Maggie Enriquez MANUAL DIFF REQ NO Normal [facility] Comment on above: Performed By: #### C BC #### [facility] [address] [place] [address] Dr. Maggie Enriquez MCH (RBC) [Entitic mass] 29.2 pg Normal 26.7-34.0 [facility] Comment on above: Performed By: #### C BC #### [facility] [address] [place] [address] Dr. Maggie Enriquez MCHC (RBC) [Mass/Vol] 32.3 g/dL Normal 29.9-35.2 [facility] Comment on above: Performed By: #### C BC #### [facility] [address] [address] [address] Maggie Enriquez MCV (RBC) [Entitic vol] 90.5 fL Normal 81.0-99.0 [facility] Comment on above: Performed By: #### C BC #### [facility] [address] [address] [address] Maggie Enriquez MONO # 0.5 103/ul Normal 0.3-0.8 [facility] Comment on above: Performed By: #### C BC #### [facility] [address] [place] [address] Dr. Maggie Enriquez Monocytes/100 WBC (Bld) 8.3 % Normal 1.7-12.0 [facility] Comment on above: Performed By: #### C BC #### [facility] [address] [place] [address] Dr. Maggie Enriquez NEUT # 3.1 103/ul Normal 1.4-6.5 [facility] Comment on above: Performed By: #### C BC #### [facility] [address] [place] [address] Dr. Maggie Enriquez Neutrophils/100 WBC (Bld) 50.4 % Normal 43.0-75.0 [facility] Comment on above: Performed By: #### C BC #### [facility] [address] [place] [address] Dr. Maggie Enriquez Platelet mean volume (Bld) [Entitic vol] 9.8 fL Normal 9.5-13.5 [facility] Comment on above: Performed By: #### C BC #### [facility] [address] [place] [address] Dr. Maggie Enriquez PLT 237 103/ul Normal 150-450 [facility] Comment on above: Performed By: #### C BC #### [facility] [address] [place] [address] Dr. Maggie Enriquez RBC 4.62 106/ul Normal 4.20-5.40 [facility] Comment on above: Performed By: #### C BC #### [facility] [address] [address] [address] Maggie Enriquez WBC 6.2 103/ul Normal 4.0-11.0 [facility] Comment on above: Performed By: #### C BC #### [facility] [address] [address] [address] Maggie Enriquez LIPID PROFILEon 07-10-2021 CHOL-HDL RATIO NORM SEE BELOW Normal [facility] Comment on above: Result Comment: 3.3 - 4.4 LOW RISK 4.4 - 7.1 AVERAGE RISK 7.1 - 11.0 MODERATE RISK >11.0 HIGH RISK Performed By: #### C MP, LIPID #### [facility] [address] [place] [address] Dr. Maggie Enriquez Cholesterol [Mass/Vol] 191 mg/dL Normal <=200 [facility] Comment on above: Performed By: #### C MP, LIPID #### [facility] [address] [place] [address] Dr. Maggie Enriquez Cholesterol in HDL [Mass/Vol] 52 mg/dL Normal [facility] Comment on above: Performed By: #### C MP, LIPID #### [facility] [address] [address] Dr. Maggie Enriquez Cholesterol in LDL [Mass/Vol] 111.8 mg/dL Normal [facility] Comment on above: Performed By: #### C MP, LIPID #### [facility] [address] [address] Dr. Maggie Enriquez Cholesterol.total/Cho lesterol in HDL [Mass ratio] 3.7 {ratio} Normal [facility] Comment on above: Performed By: #### C MP, LIPID #### [facility] [address] [place] [address] Dr. Maggie Enriquez HDL NORMAL > or = 60 mg/dl - LO W CARDIOVASCULAR RISK <40 mg/dl - HIGH CARDIOVASCULAR RISK Normal [facility] Comment on above: Performed By: #### C MP, LIPID #### [facility] [address] [place] [address] Dr. Maggie Enriquez LDL CALC NORMAL SEE BELOW Normal [facility] Comment on above: Result Comment: <100 mg/dl OPTIMAL 100 - 129 mg/dl NEAR OR ABOVE OPTIMAL 130 - 159 mg/dl BORDERLINE HIGH 160 - 189 mg/dl HIGH >190 mg/dl VERY HIGH Performed By: #### C MP, LIPID #### [facility] [address] [place] [address] Dr. Maggie Enriquez Triglyceride [Mass/Vol] 136 mg/dL Normal <=150 [facility] Comment on above: Performed By: #### C MP, LIPID #### [facility] [address] [address] [address] Maggie Enriquez VLDL CALC 27.2 mg/dL Normal [facility] Comment on above: Performed By: #### C MP, LIPID #### [facility] [address] [place] [address] Dr. Maggie Enriquez PROF 14(COMP METB)on 021 Albumin [Mass/Vol] 3.5 g/dL Normal 3.5-5.0 [facility] Comment on above: Performed By: #### C MP, LIPID #### [facility] [address] [place] [address] Dr. Maggie Enriquez Albumin/Globulin [Mass ratio] 1.0 {ratio} Normal [facility] Comment on above: Performed By: #### C MP, LIPID #### [facility] [address] [place] [address] Dr. Maggie Enriquez ALP [Catalytic activity/Vol] 76 U/L Normal 38-126 [facility] Comment on above: Performed By: #### C MP, LIPID #### [facility] [address] [address] [address] Maggie Enriquez ALT [Catalytic activity/Vol] 33 U/L Normal 9-52 [facility] Comment on above: Performed By: #### C MP, LIPID #### [facility] [address] [address] [address] Maggie Enriquez Anion gap [Moles/Vol] 9.5 mmol/L Normal [facility] Comment on above: Performed By: #### C MP, LIPID #### [facility] [address] [address] [address] Maggie Enriquez AST [Catalytic activity/Vol] 24 U/L Normal 14-36 [facility] Comment on above: Performed By: #### C MP, LIPID #### [facility] [address] [address] [address] Maggie Enriquez Bilirubin [Mass/Vol] 1.2 mg/dL Normal 0.2-1.3 [facility] Comment on above: Performed By: #### C MP, LIPID #### [facility] [address] [address] [address] Maggie Enriquez Calcium [Mass/Vol] 9.2 mg/dL Normal 8.4-10.2 [facility] Comment on above: Performed By: #### C MP, LIPID #### [facility] [address] [place] [place] [address] Dr. Maggie Enriquez Chloride [Moles/Vol] 104 mmol/L Normal 98-107 [facility] Comment on above: Performed By: #### C MP, LIPID #### [facility] [address] [address] [address] Maggie Enriquez CO2 [Moles/Vol] 31.6 mmol/L Critically high 22.0-30.0 [facility] Comment on above: Performed By: #### C MP, LIPID #### [facility] [address] [place] [place] [address] Dr. Maggie Enriquez Creatinine [Mass/Vol] 0.65 mg/dL Normal 0.52-1.04 [facility] Comment on above: Performed By: #### C MP, LIPID #### [facility] [address] [place] [place] [address] Dr. Maggie Enriquez EGFR-AF JAMAICAN >60 Normal >=60 The [facility] Comment on above: Performed By: #### C MP, LIPID #### [facility] [address] [address] [address] Maggie Enriquez EGFR-NON AF JAMAICAN >60 Normal >=60 [facility] Comment on above: Performed By: #### C MP, LIPID #### [facility] [address] [address] [address] Maggie Enriquez Globulin (S) [Mass/Vol] 3.6 g/dL Normal [facility] Comment on above: Performed By: #### C MP, LIPID #### [facility] [address] [address] [address] Maggie Enriquez Glucose [Mass/Vol] 96 mg/dL Normal 74-106 [facility] Comment on above: Performed By: #### C MP, LIPID #### [facility] [address] [address] [address] Maggie Enriquez Potassium [Moles/Vol] 4.1 mmol/L Normal 3.4-5.0 [facility] Comment on above: Performed By: #### C MP, LIPID #### [facility] [address] [place] [address] Dr. Maggie Enriquez Protein [Mass/Vol] 7.1 g/dL Normal 6.1-8.2 [facility] Comment on above: Performed By: #### C MP, LIPID #### [facility] [address] [address] [address] Maggie Enriquez Sodium [Moles/Vol] 141 mmol/L Normal 137-145 [facility] Comment on above: Performed By: #### C MP, LIPID #### [facility] [address] [place] [address] Dr. Maggie Enriquez Urea nitrogen [Mass/Vol] 16.0 mg/dL Normal 7.0-17.0 [facility] Comment on above: Performed By: #### C MP, LIPID #### [facility] [address] [place] [address] Dr. Maggie Enriquez Urea nitrogen/Creatinine [Mass ratio] 24.6 mg/mg Normal [facility] Comment on above: Performed By: #### C MP, LIPID #### [facility] [address] [place] [address] Dr. Maggie Enriquez VITAMIN D 25 OHon 07-10-2021 VIT D 25-OH 74.1 ng/mL Normal [facility] Comment on above: Performed By: #### V ITAD #### [facility] [address] [address] [address] Maggie Enriquez VIT D RANGES SEE BELOW Normal [facility] Comment on above: Result Comment: <20 ng/mL Vit D deficient 20 - <30 ng/mL Vit D insufficient 30 - 100 ng/mL Vit D sufficient >100 ng/mL Potential Toxicity Performed By: #### V ITAD #### [facility] [address] [address] [address] Maggie Enriquez Vital Signs Date Time Vital Sign Value Performing Clinician Facility 04-12-2024 10:50-0400 Body weight 87.08 kg CLIMATOLOGY PROFESSOR-C Liana Wiggins Work Phone: [facility] 04-09-2024 10:53-0400 Blood Pressure Location Posey Sarmini [facility] 04-09-2024 10:53-0400 Diastolic blood pressure 85 mm[Hg] Posey Sarmini [facility] 04-09-2024 10:53-0400 Heart rate 71 /min Posey Sarmini [facility] 04-09-2024 10:53-0400 Respiratory rate 16 /min Posey Sarmini [facility] 04-09-2024 10:53-0400 Systolic blood pressure 128 mm[Hg] Posey Sarmini [facility] 01-09-2024 10:59-0400 Blood Pressure Location Posey Sarmini [facility] 01-09-2024 10:59-0400 Diastolic blood pressure 74 mm[Hg] Posey Sarmini [facility] 01-09-2024 10:59-0400 Heart rate 80 /min Posey Sarmini [facility] 01-09-2024 10:59-0400 Respiratory rate 18 /min Posey Sarmini [facility] 01-09-2024 10:59-0400 Systolic blood pressure 136 mm[Hg] Posey Sarmini [facility] 12-22-2023 11:40-0400 Diastolic blood pressure 46 mm[Hg] Posey Sarmini [facility] 12-22-2023 11:40-0400 Heart rate 62 /min Posey Sarmini [facility] 12-22-2023 11:40-0400 Mean blood pressure 74 mm[Hg] Posey Sarmini [facility] 12-22-2023 11:40-0400 Respiratory rate 17 /min Posey Sarmini [facility] 12-22-2023 11:40-0400 SaO2% (BldA) [Mass fraction] 98 % Posey Sarmini [facility] 12-22-2023 11:40-0400 Systolic blood pressure 129 mm[Hg] Posey Sarmini [facility] 12-22-2023 11:30-0400 Diastolic blood pressure 51 mm[Hg] Posey Sarmini [facility] 12-22-2023 11:30-0400 Heart rate 65 /min Posey Sarmini [facility] 12-22-2023 11:30-0400 Mean blood pressure 76 mm[Hg] Posey Sarmini [facility] 12-22-2023 11:30-0400 Respiratory rate 16 /min Posey Sarmini [facility] 12-22-2023 11:30-0400 SaO2% (BldA) [Mass fraction] 100 % Posey Sarmini [facility] 12-22-2023 11:30-0400 Systolic blood pressure 125 mm[Hg] Posey Sarmini [facility] 12-22-2023 11:25-0400 Diastolic blood pressure 57 mm[Hg] Posey Sarmini [facility] 12-22-2023 11:25-0400 Heart rate 68 /min Posey Sarmini [facility] 12-22-2023 11:25-0400 Mean blood pressure 80 mm[Hg] Posey Sarmini [facility] 12-22-2023 11:25-0400 Respiratory rate 19 /min Posey Sarmini [facility] 12-22-2023 11:25-0400 SaO2% (BldA) [Mass fraction] 96 % Posey Sarmini [facility] 12-22-2023 11:25-0400 Systolic blood pressure 125 mm[Hg] Posey Sarmini [facility] 12-22-2023 11:15-0400 Body temperature 98.06 [degF] Posey Sarmini [facility] 12-22-2023 10:24-0400 Blood Pressure Location Posey Sarmini [facility] 12-22-2023 10:24-0400 Body temperature 98.24 [degF] Posey Sarmini [facility] 09-20-2023 10:00-0500 Hourly Rounding Nathaniel Paster [facility] 09-20-2023 10:00-0500 Promise to Return Nathaniel Paster [facility] 09-20-2023 09:00-0500 Hourly Rounding Nathaniel Paster [facility] 09-20-2023 09:00-0500 Promise to Return Nathaniel Paster [facility] 09-20-2023 08:20-0500 Hourly Rounding Nathaniel Paster [facility] 09-20-2023 08:05-0500 Heart rate 74 /min Nathaniel Paster [facility] 09-20-2023 08:05-0500 SaO2% (BldA) [Mass fraction] 99 % Nathaniel Paster [facility] 09-20-2023 08:05-0500 Respiratory rate 18 /min Nathaniel Paster [facility] 09-20-2023 08:04-0500 Diastolic blood pressure 78 mm[Hg] Nathaniel Paster [facility] 09-20-2023 08:04-0500 Mean blood pressure 102 mm[Hg] Nathaniel Paster [facility] 09-20-2023 08:04-0500 Systolic blood pressure 151 mm[Hg] Nathaniel Paster [facility] 09-20-2023 08:04-0500 Body temperature 97.88 [degF] Nathaniel Paster [facility] 09-20-2023 08:00-0500 Promise to Return Nathaniel Paster [facility] 09-20-2023 00:45-0500 Blood Pressure Location Nathaniel Paster [facility] 09-20-2023 00:45-0500 Body temperature 98.24 [degF] Nathaniel Paster [facility] 09-20-2023 00:45-0500 Diastolic blood pressure 67 mm[Hg] Nathaniel Paster [facility] 09-20-2023 00:45-0500 Heart rate 65 /min Nathaniel Paster [facility] 09-20-2023 00:45-0500 Respiratory rate 16 /min Nathaniel Paster [facility] 09-20-2023 00:45-0500 SaO2% (BldA) [Mass fraction] 95 % Nathaniel Paster [facility] 09-20-2023 00:45-0500 Systolic blood pressure 133 mm[Hg] Nathaniel Paster [facility] 09-19-2023 19:40-0500 Blood Pressure Location Nathaniel Paster [facility] 09-19-2023 19:40-0500 Body temperature 97.52 [degF] Nathaniel Paster [facility] 09-19-2023 19:40-0500 Diastolic blood pressure 98 mm[Hg] Nathaniel Paster [facility] 09-19-2023 19:40-0500 Heart rate 77 /min Nathaniel Paster [facility] 09-19-2023 19:40-0500 Respiratory rate 16 /min Nathaniel Paster [facility] 09-19-2023 19:40-0500 SaO2% (BldA) [Mass fraction] 97 % Nathaniel Paster [facility] 09-19-2023 19:40-0500 Systolic blood pressure 144 mm[Hg] Nathaniel Paster [facility] 09-19-2023 17:37-0500 Mean blood pressure 105 mm[Hg] Nathaniel Paster [facility] 09-19-2023 14:43-0500 Mean blood pressure 106 mm[Hg] Nathaniel Paster [facility] 09-19-2023 12:10-0500 Blood Pressure Location Nathaniel Paster [facility] 09-19-2023 12:10-0500 Heart rate 78 /min Nathaniel Paster [facility] 09-19-2023 12:10-0500 Mean blood pressure 97 mm[Hg] Nathaniel Paster [facility] 09-19-2023 11:00-0500 Mean blood pressure 108 mm[Hg] Nathaniel Paster [facility] 09-18-2023 10:35-0500 Body temperature 97.88 [degF] Nathaniel Paster [facility] 09-18-2023 10:35-0500 Mean blood pressure 90 mm[Hg] Nathaniel Paster [facility] 09-18-2023 10:35-0500 Respiratory rate 16 /min Nathaniel Paster [facility] 09-18-2023 10:30-0500 Respiratory rate 17 /min Nathaniel Paster [facility] 09-18-2023 10:25-0500 Respiratory rate 12 /min Nathaniel Paster [facility] 09-18-2023 10:09-0500 Body temperature 98.06 [degF] Nathaniel Paster [facility] 09-18-2023 08:20-0500 Body temperature 98.06 [degF] Nathaniel Paster [facility] 09-17-2023 10:27-0500 Heart rate 123 /min Nathaniel Mathews [facility] 09-17-2023 07:00-0500 Heart rate 71 /min Nathaniel Mathews [facility] 04-26-2022 10:45-0400 Diastolic blood pressure 76 mm[Hg] MD Pham Saucedo Work Phone: [facility] 04-26-2022 10:45-0400 Heart rate 80 /min MD Pham Saucedo Work Phone: [facility] 04-26-2022 10:45-0400 Respiratory rate 18 /min MD Pham Saucedo Work Phone: [facility] 04-26-2022 10:45-0400 SaO2% (BldA) [Mass fraction] 99 % MD Pham Saucedo Work Phone: [facility] 04-26-2022 10:45-0400 Systolic blood pressure 154 mm[Hg] MD Pham Saucedo Work Phone: [facility] 04-26-2022 08:18-0400 Body height 154.94 cm MD Pham Saucedo Work Phone: [facility] 04-26-2022 08:18-0400 Body temperature 98.3 [degF] MD Pham Saucedo Work Phone: [facility] 04-26-2022 08:18-0400 Body weight 99.79 kg MD Pham Saucedo Work Phone: [facility] Encounters Encounter Date Encounter Type Care Provider Facility Start: 04-18-2025 ambulatory Liana L Feliciano Facility: [facility] [place] Start: 03-15-2025 ambulatory Liana L Feliciano Facility: [facility] [place] Start: 04-26-2024 End: 04-26-2024 ambulatory Liana L Feliciano Facility:[facility] [place] [facility] Start: 04-26-2024 End: 04-26-2024 Lab Drop off Liana L Feliciano [facility] Start: 04-19-2024 End: 04-19-2024 ambulatory INTERMODAL DISPATCHER Liana L Feliciano Facility:[facility] [place] [facility] Start: 04-19-2024 End: 04-19-2024 ambulatory Liana L Feliciano Facility:[facility] [place] [facility] Start: 04-12-2024 End: 04-12-2024 ambulatory CLIMATOLOGY PROFESSOR-C Liana Eli Feliciano Work Phone: [facility] Work Phone: Start: 04-12-2024 End: 04-12-2024 Patient encounter procedure CLIMATOLOGY PROFESSOR-C Liana Feliciano Work Phone: [facility] Work Phone: Start: 04-09-2024 End: 04-09-2024 ambulatory Posey Talal Sarmini Facility:[facility] Start: 04-09-2024 End: 04-09-2024 Patient encounter procedure Posey Talal Sarmini [facility] Start: 03-31-2024 End: 03-31-2024 Patient encounter procedure CLIMATOLOGY PROFESSOR-C Liana Feliciano Work Phone: [facility] Work Phone: Start: 03-31-2024 End: 03-31-2024 ambulatory CLIMATOLOGY PROFESSOR-C Liana Eli Feliciano Work Phone: [facility] Work Phone: Start: 03-14-2024 End: 03-14-2024 Lab Drop off Liana L Feliciano [facility] Start: 03-14-2024 End: 03-14-2024 ambulatory Liana L Feliciano Facility:[facility] Start: 01-09-2024 End: 01-09-2024 ambulatory Posey Talal Kathimini Facility:[facility] Start: 01-09-2024 End: 01-09-2024 Patient encounter procedure Posey Talal Kathimini [facility] Start: 12-22-2023 End: 12-22-2023 ambulatory Posey Talal Kathimini Facility:[facility] Start: 12-22-2023 End: 12-22-2023 Patient encounter procedure Posey Talal Kathimini [facility] Start: 11-03-2023 End: 11-03-2023 ambulatory Maria Luisa Beckwith Facility:[facility] Start: 10-25-2023 End: 10-25-2023 ambulatory Maria Luisa Beckwith Facility:[facility] Start: 10-03-2023 ambulatory INTERMODAL DISPATCHER Liana Feliciano Facilit y:[facility] Start: 09-26-2023 End: 09-26-2023 ambulatory INTERMODAL DISPATCHER Liana L Feliciano Facility:[facility] Start: 09-26-2023 End: 09-26-2023 Lab Drop off Liana L Feliciano [facility] Start: 09-26-2023 End: 09-26-2023 Lab Drop off Liana L Feliciano [facility] Start: 09-26-2023 End: 09-26-2023 ambulatory INTERMODAL DISPATCHER Liana L Feliciano Facility:[facility] Start: 09-22-2023 End: 09-22-2023 ambulatory INTERMODAL DISPATCHER Liana L Feliciano Facility:[facility] [place] [facility] Start: 09-21-2023 End: 10-21-2023 ambulatory INTERMODAL DISPATCHER Liana L Feliciano Facility:[id number] Start: 09-16-2023 End: 09-20-2023 Evaluation and management of inpatient Nathaniel Mathews [facility] Start: 09-15-2023 End: 09-15-2023 Lab Drop off Liana L Feliciano [facility] Start: 09-15-2023 End: 09-15-2023 ambulatory INTERMODAL DISPATCHER Liana L Feliciano Facility:[facility] Start: 08-26-2023 End: 08-26-2023 ambulatory INTERMODAL DISPATCHER Liana L Feliciano Facility:[facility] [place] [facility] Start: 05-25-2023 End: 05-25-2023 ambulatory INTERMODAL DISPATCHER Liana L Feliciano Facility: [facility] [place] [facility] Start: 04-26-2023 End: 04-26-2023 Lab Drop off Liana L Feliciano [facility] Start: 04-26-2023 End: 04-26-2023 ambulatory INTERMODAL DISPATCHER Liana L Feliciano Facility:[facility] Start: 06-01-2022 End: 06-02-[address] PHAM SAUCEDO Facility:[facility] Start: 05-07-2022 End: 05-08-[address] PHAM SAUCEDO Facility:[facility] Start: 04-26-2022 End: 04-26-2022 Admission to same day surgery center MD Pham Saucedo Work Phone: [facility] Start: 04-22-2022 End: 04-22-2022 Patient encounter procedure MD Pham Saucedo Work Phone: [facility] Start: 03-08-2022 End: 03-09-[address] PHAM SAUCEDO Facility:[facility] Start: 03-02-2022 End: 03-03-[address] PHAM SAUCEDO Facility:[facility] Start: 07-10-2021 End: 07-11-[address] PHAM SAUCEDO Facility:[facility] Procedures Date Procedure Procedure Detail Performing Clinician Start: 03-31-2024 X-ray of cervical spine CLIMATOLOGY PROFESSOR-C Liana Feliciano Work Phone: Start: 12-22-2023 Esophagogastroduodenoscopy Taty pierson Start: 08-29-2023 Esophagogastroduodenoscopic electrohydraulic lithotripsy of bezoar in stomach Lianayared Mendozaab Start: 04-26-2022 Screening colonoscopy MD Pham Saucedo Work Phone: Start: 08-29-2021 Colonoscopy Liana Feliciano Cataract surgery Liana Feliciano Comment on above: bilateral Cholecystectomy Liana Feliciano Glaucoma surgery spe cialty (qualifier value) Liana Feliciano Comment on above: bilateral Hysterectomy Liana Feliciano SARS Antigen (LFIA) MD Pham orourke Work Phone: Total abdominal hyst erectomy with bilateral salpingo-oophorectomy Liana Feliciano Plan of Treatment Date Care Activity Detail Author Start: 04-26-2022 [facility] Work Phone: Start: 04-26-2022 Screening colonoscopy DH Colonoscopy Screening (Not Applicable) [facility] Start: 04-26-2022 End: 04-26-2022 Admission to same day surgery center Departed Surgical Day Care [facility] Patient Education Hemorrhoids Diverticulo sis [facility] Work Phone: Immunizations Immunization Date Immunization Notes Care Provider Loni pedro NEGATED: Highlighted row has not occurred!11-15-2022 influenza virus vaccine, unspecified formulation [facility] NEGATED: Highlighted row has not occurred!11-15-2022 SARS-CoV-2 mRNA (tozinameran 5y-11y) vaccine Liana Feliciano [facility] Payers Date Payer Category Payer Medicare [id number] 1959 Private Health Insurance [facility] [id number] 1959 Private Health Insurance [facility] [id number] 1948 Unknown [id number] 2.16.840.1.988584.3.579.2.5 93 1948 Unknown [id number] 2.16.840.1.468362.3.579.2.5 1948 Unknown [id number] 2.16.840.1.729310.3.579.2.5 93 1948 Unknown [id number] 2.16.840.1.406484.3.579.2.5 1948 Unknown [id number] 2.16.840.1.022737.3.579.2.5 1948 Unknown [id number] 2.16.840.1.078654.3.579.2.7 1948 Unknown [id number] 2.16.840.1.104433.3.579.2.7 1948 Unknown [id number] 2.16.840.1.469430.3.579.2.7 1948 Unknown [id number] 2.16.840.1.535250.3.579.2.7 1948 Unknown [id number] 2.16.840.1.188946.3.579.2.7 1948 Unknown [id number] 2.16.840.1.960019.3.579.2.7 1948 Unknown [id number] 2.16.840.1.231141.3.579.2.7 1948 Unknown [id number] 2.16.840.1.618837.3.579.2.7 1948 Unknown [id number] 2.16.840.1.536498.3.579.2.7 1948 Unknown [id number] 2.16.840.1.255583.3.579.2.7 1948 Unknown [id number] 2.16.840.1.623092.3.579.2.7 1948 Unknown [id number] 2.16.840.1.876777.3.579.2.7 1948 Unknown [id number] 2.16.840.1.884024.3.579.2.7 1948 Unknown [id number] 2.16.840.1.198720.3.579.2.7 1948 Unknown [id number] 2.16.840.1.862773.3.579.2.7 1948 Unknown [id number] 2.16.840.1.472218.3.579.2.7 1948 Unknown [id number] 2.16.840.1.894772.3.579.2.7 1948 Unknown [id number] 2.16.840.1.755673.3.579.2.7 1948 Unknown [id number] 2.16.840.1.554788.3.579.2.7 1948 Unknown [id number] 2.16.840.1.921601.3.579.2.7 1948 Unknown [id number] Self-pay Self Pay [id number] Unknown ANTHEM [employer]EMPL[employer] EE NON-ER [id number] Social History Date Type Detail Facility Start: 04-26-2022 Tobacco smoking stat us NHIS Current some day smoker [facility] Start: 1950 Sex Assigned At Female F [facility] Start: 04-26-2023 End: 04-19-2024 Tobacco smoking status [facility] Comment on above: quit January 2011, 10 c igs per day, started at age 14 Patient former smoke r. Sex Assigned At Female [facility] Tobacco Current vaping o r e-cigarette use Smokeless Tobacco Use:. [facility] Tobacco smoking status No Smokin g Status Entered [facility] Medical Equipment Procedure Code Equipment Code Equipment Origin al Text Equipment Identifier Dates Unknown Unknown 09/18/23 Non Biological Unknown FDA Start: 09-18-2023 FDA Start: 09-18-2023 Unknown Unknown 09/18/23 Non Biological Unknown FDA Start: 09-18-2023 FDA Start: 09-18-2023 Unknown Unknown 09/18/23 Non Biological Unknown FDA Start: 09-18-2023 FDA Start: 09-18-2023 Unknown Unknown 09/18/23 Non Biological Unknown FDA Start: 09-18-2023 FDA Start: 09-18-2023 Unknown Unknown 12/22/23 Non Biological Unknown FDA Start: 12-22-2023 FDA Start: 12-22-2023 Unknown Unknown 09/18/23 Non Biological Unknown FDA Start: 09-18-2023 FDA Start: 09-18-2023 Unknown Unknown 12/22/23 Non Biological Unknown FDA Start: 12-22-2023 FDA Start: 12-22-2023 Unknown Unknown 09/18/23 Non Biological Unknown FDA Start: 09-18-2023 FDA Start: 09-18-2023 Unknown Unknown 12/22/23 Non Biological Unknown FDA Start: 12-22-2023 FDA Start: 12-22-2023 Unknown Unknown 09/18/23 Non Biological Unknown FDA Start: 09-18-2023 FDA Start: 09-18-2023 Unknown Unknown 12/22/23 Non Biological Unknown FDA Start: 12-22-2023 FDA Start: 12-22-2023 Unknown Unknown 09/18/23 Non Biological Unknown FDA Start: 09-18-2023 FDA Start: 09-18-2023 Unknown Unknown 12/22/23 Non Biological Unknown FDA Start: 12-22-2023 FDA Start: 12-22-2023 Goals Date Patient Goal Desired Activity /State Functional Status Date Assessment Result Facility 04-09-2024 Functional Status N/A [facility] 01-09-2024 Functional Status N/A [facility] 12-22-2023 Functional Status N/A [facility] 09-16-2023 Functional Status No [facility] 09-16-2023 Functional Status [facility] Clinical Notes 04-26-2022 to 04-19-2024 Note Date & Type Note Facility 04-19-2024 Note Patient Education Emergency Medicine Heart Attack A heart attack occurs when blood and oxygen supply to the heart is cut off. A heart attack can cause damage to the heart that cannot be fixed. A heart attack is also called a myocardial infarction, or OH. If you think you are having a heart attack, do not wait to see if the symptoms will go away. Get medical help right away. What are the causes? This condition may be caused by: ? A fatty substance (plaque) in the blood vessels (arteries). This can block the flow of blood to the heart. ? A blood clot in the blood vessels that go to the heart. The blood clot blocks blood flow. ? An abnormal heartbeat. ? Some diseases, such as problems in red blood cells (anemia)orproblems in breathing (respiratory failure). ? Tightening (spasm) of a blood vessel that cuts off blood to the heart. ? A tear in a blood vessel of the heart. Other causes may include: ? Using drugs such as cocaine or methamphetamine. ? Low blood pressure. What increases the risk? ? Aging. The risk gets higher as you get older. ? Having a personal or family history of chest pain, heart attack, stroke, or narrowing of the arteries in the legs, arms, head, or stomach (peripheral vascular disease). ? Having taken chemotherapy or immune-suppressing medicines. ? Being male. ? Being overweight or obese. ? Having any of these conditions: ? High blood pressure. ? High cholesterol. ? Diabetes. ? Making lifestyle choices such as: ? Drinking too much alcohol. ? Not getting regular exercise. ? Smoking. What are the signs or symptoms? ? Chest pain. It may feel like: ? Crushing or squeezing. ? Tightness, pressure, fullness, or heaviness. ? Pain in the arm, neck, jaw, back, or upper body. ? Heartburn. ? Upset stomach (indigestion). ? Shortness of breath. ? Feeling like you may vomit (nauseous). ? Cold sweats. ? Sudden light-headedness, dizziness, or passing out. ? Feeling tired. How is this treated? A heart attack must be treated as soon as possible. Treatment may include: ? Medicines to: ? Break up or dissolve blood clots. ? Thin your blood and help prevent blood clots. ? Treat blood pressure. ? Improve blood flow to the heart. ? Reduce pain. ? Reduce cholesterol. ? Procedures to widen a blocked artery and keep it open. ? Open heart surgery. ? Making your heart strong again (cardiac rehabilitation) through exercise, education, and counseling. Follow these instructions at home: Medicines ? Take iuvj-oel-kqvlqip and prescription medicines only as told by your doctor. ? Do not take these medicines unless your doctor says it is okay: ? NSAIDs, such as ibuprofen, naproxen, or celecoxib. ? Any vitamins or supplements. ? Hormone replacement therapy that has estrogen with or without progestin. ? If you are taking blood thinners: ? Talk with your doctor before taking any medicines that have aspirin or NSAIDs, such as ibuprofen. ? Take medicines exactly as told. Take them at the same time each day. ? Avoid doing things that could hurt or bruise you. Take action to prevent falls. ? Wear an alert bracelet or carry a card that shows you are taking blood thinners. Lifestyle ? Do not smoke or use any products that contain nicotine or tobacco. If you need help quitting, ask your doctor. ? Avoid secondhand smoke. ? Exercise regularly. Ask your doctor about a cardiac rehab program. ? Eat heart-healthy foods. Your doctor will tell you what foods to eat. ? Stay at a healthy weight. ? Learn ways to lower your stress level. ? Do not use illegal drugs. Alcohol use ? Do not drink alcohol if: ? Your doctor tells you not to drink. ? You are , may be , or are planning to become . ? If you drink alcohol: ? Limit how much you have to: ? 0?1 drink a day for women. ? 0?2 drinks a day for men. ? Know how much alcohol is in your drink. In the [place] one drink equals one 12 oz bottle of beer (355 mL), one 5 oz glass of wine (148 mL), or one 1? oz glass of hard liquor (44 mL). General instructions ? Work with your doctor to treat other problems you may have, such as diabetes or high blood pressure. ? Get screened for depression. Get treatment if needed. ? Keep your vaccines up to date. Get the flu shot (influenza vaccine) every year. ? Keep all follow-up visits. Contact a doctor if: ? You feel very sad. ? You have trouble doing your daily activities. ? You get light-headed or dizzy. Get help right away if: ? You have sudden, unexplained discomfort in your chest, arms, back, neck, jaw, or upper body. ? You have shortness of breath. ? You have sudden sweating or clammy skin. ? You feel like you may vomit or you vomit. ? You feel tired or weak. ? You feel your heart beating fast. ? You feel your heart skipping beats. ? You (more content not included)... [facility] 12-23-2023 Note [id number] [facility] 12-22-2023 Hospital Discharg e instructions Patient Education 12/22/2023 11:28:50 Hiatal Hernia Hiatal Hernia A hiatal hernia occurs when part of the stomach slides above the muscle that separates the abdomen from the chest (diaphragm). A person can be born with a hiatal hernia (congenital), or it may develop over time. In almost all cases of hiatal hernia, only the top part of the stomach pushes through the diaphragm. Many people have a hiatal hernia with no symptoms. The larger the hernia, the more likely it is that you will have symptoms. In some cases, a hiatal hernia allows stomach acid to flow back into the tube that carries food from your mouth to your stomach (esophagus). This may cause heartburn symptoms. The development of heartburn symptoms may mean that you have a condition called gastroesophageal reflux disease (GERD). What are the causes? This condition is caused by a weakness in the opening (hiatus) where the esophagus passes through the diaphragm to attach to the upper part of the stomach. A person may be born with a weakness in the hiatus, or a weakness can develop over time. What increases the risk? This condition is more likely to develop in: Older people. Age is a major risk factor for a hiatal hernia, especially if you are over the age of 50. women. People who are overweight. People who have frequent constipation. What are the signs or symptoms? Symptoms of this condition usually develop in the form of GERD symptoms. Symptoms include: Heartburn. Upset stomach (indigestion). Trouble swallowing. Coughing or wheezing. Wheezing is making high-pitched whistling sounds when you breathe. Sore throat. Chest pain. Nausea and vomiting. How is this diagnosed? This condition may be diagnosed during testing for GERD. Tests that may be done include: X-rays of your stomach or chest. An upper gastrointestinal (GI) series. This is an X-ray exam of your GI tract that is taken after you swallow a chalky liquid that shows up clearly on the X-ray. Endoscopy. This is a procedure to look into your stomach using a thin, flexible tube that has a tiny camera and light on the end of it. How is this treated? This condition may be treated by: Dietary and lifestyle changes to help reduce GERD symptoms. Medicines. These may include: ?Eesb-mue-symista antacids. ?Medicines that make your stomach empty more quickly. ?Medicines that block the production of stomach acid (H2 blockers). ?Stronger medicines to reduce stomach acid (proton pump inhibitors). Surgery to repair the hernia, if other treatments are not helping. If you have no symptoms, you may not need treatment. Follow these instructions at home: Lifestyle and activity Do not use any products that contain nicotine or tobacco. These products include cigarettes, chewing tobacco, and vaping devices, such as e-cigarettes. If you need help quitting, ask your health care provider. Try to achieve and maintain a healthy body weight. Avoid putting pressure on your abdomen. Anything that puts pressure on your abdomen increases the amount of acid that may be pushed up into your esophagus. ?Avoid bending over, especially after eating. ?Raise the head of your bed by putting blocks under the legs. This keeps your head and esophagus higher than your stomach. ?Do not wear tight clothing around your chest or stomach. ?Try not to strain when having a bowel movement, when urinating, or when lifting heavy objects. Eating and drinking Avoid foods that can worsen GERD symptoms. These may include: ?Fatty foods, like fried foods. ?[place] fruits, like oranges or lemon. ?Other foods and drinks that contain acid, like orange juice or tomatoes. ?Spicy food. ?Chocolate. Eat frequent small meals instead of three large meals a day. This helps prevent your stomach from getting too full. ?Eat slowly. ?Do not lie down right after eating. ?Do not eat 1 2 hours before bed. Do not drink beverages with caffeine. These include cola, coffee, cocoa, and tea. Do not drink alcohol. General instructions Take eiig-ihe-jkiilin and prescription medicines only as told by your health care provider. Keep all follow-up visits. Your health care provider will want to check that any new prescribed medicines are helping your symptoms. Contact a health care provider if: Your symptoms are not controlled with medicines or lifestyle changes. You are having trouble swallowing. You have coughing or wheezing that will not go away. Your pain is getting worse. Your pain spreads to your arms, neck, jaw, teeth, or back. You feel nauseous or you vomit. Get help right away if: You have shortness of breath. You vomit blood. You have bright red blood in your stools. You have black, tarry stools. These symptoms may be an emergency. Get help right away. Call 911. Do not wait to see if the symptoms will go away. Do not drive yourself to the hospital. Summary A hiatal hernia occurs when part of the stomach slides above the muscle that separates the abdomen from the chest. A person may be born with a weakness in the hiatus, or a weakness can develop over time. Symptoms of a hiatal hernia may include heartburn, trouble swallowing, or sore throat. Management of a hiatal hernia includes eating frequent small meals instead of three large meals a day. Get help right away if you vomit blood, have bright red blood in your stools, or have black, tarry stools. This information is not intended to replace advice given to you by your health care provider. Make sure you discuss any questions you have with your health care provider. Document Revised: 10/12/2022 Document Reviewed: 10/12/2022 AF83 Patient Education 2022 [employer]. 12/22/2023 11:28:47 Fuller's Esophagus Fuller's Esophagus Fuller's esophagus occurs when the tissue that lines the esophagus changes or becomes damaged. The esophagus is the tube that carries food from the throat to the stomach. With Fuller's esophagus, the cells that line the esophagus are replaced by cells that are similar to the lining of the intestines (intestinal metaplasia). Fuller's esophagus itself may not cause any symptoms. However, many people who have Fuller's esophagus also have gastroesophageal reflux disease (GERD), which may cause symptoms such as heartburn. Over time, a few people with this condition may develop cancer of the esophagus. Treatment may include medicines, procedures to destroy the abnormal cells, or surgery. What are the causes? The exact cause of this condition is not known. In some cases, the condition develops from damage to the lining of the esophagus caused by gastroesophageal reflux disease (GERD). GERD occurs when stomach acids flow up from the stomach into the esophagus. Frequent symptoms of GERD may cause intestinal metaplasia or cause cell changes (dysplasia). What increases the risk? You are more likely to develop this condition if you: Have GERD. Are male. Are of descent. Are obese. Are older than 50. Have a hiatal hernia. This is a condition in which part of your stomach bulges into your chest. Smoke. What are the signs or symptoms? People with Fuller's esophagus often have no symptoms. However, many people with this condition also have GERD. Symptoms of GERD may include: Heartburn. Difficulty swallowing. Dry cough. How is this diagnosed? This condition may be diagnosed based on: Results of an upper gastrointestinal endoscopy. For this exam, a thin, flexible tube with a light and a camera on the end (endoscope) is passed down your esophagus. Your health care provider can view the inside of your esophagus during this procedure. Results of a biopsy. For this procedure, several tissue samples are removed (biopsy) from your esophagus to look at under a microscope. They are then checked for intestinal metaplasia or dysplasia. How is this treated? Treatment for this condition may include: Medicines (proton pump inhibitors, or PPIs) to decrease or stop GERD. Periodic endoscopic exams to make sure that cancer is not developing. A procedure or surgery for dysplasia. This may include: ?Removal or destruction of abnormal cells. ?Removal of part of the esophagus. Follow these instructions at home: Eating and drinking Eat more fruits and vegetables. Avoid fatty foods. Eat small, frequent meals instead of large meals. Avoid foods that cause heartburn. These foods include: ?Coffee and alcoholic drinks. ?Tomatoes and foods made with tomatoes. ?Mesic or spicy foods. ?Chocolate and peppermint. Do not drink alcohol. General instructions Take stuf-yje-mmpeazc and prescription medicines only as told by your health care provider. Do not use any products that contain nicotine or tobacco, such as cigarettes, e-cigarettes, and chewing tobacco. If you need help quitting, ask your health care provider. If you are being treated for GERD, make sure you take medicines and follow all instructions as told by your health care provider. Keep all follow-up visits as told by your health care provider. This is important. Contact a health care provider if: You have heartburn or GERD symptoms. You have difficulty swallowing. Get help right away if: You have chest pain. You are unable to swallow. You vomit blood or material that looks like coffee grounds. Your stool (feces) is bright red or dark. These symptoms may represent a serious problem that is an emergency. Do not wait to see if the symptoms will go away. Get medical help right away. Call your local emergency services (911 in the [place] Do not drive yourself to the hospital. Summary Fuller's esophagus occurs when the tissue that lines the esophagus changes or becomes damaged. Fuller's esophagus may be diagnosed with an upper gastrointestinal endoscopy and a biopsy. Treatment may include medicines, procedures to remove abnormal cells, or surgery. Follow your health care provider's instructions about what to eat and drink, what medicines to take, and when to call for help. This information is not intended to replace advice given to you by your health care provider. Make sure you discuss any questions you have with your health care provider. Document Revised: 11/01/2020 Document Reviewed: 11/01/2020 AF83 Patient Education 2022 [employer]. 12/22/2023 11:28:43 Endoscopy, Care After Procedure [facility] [place] Endoscopy Care After Procedure Please read the instructions outlined below and refer to this sheet in the next few weeks. These discharge instructions provide you with general information on caring for yourself after you leave the hospital. Your doctor may also give you specific instructions. While your treatment has been planned according to the most current medical practices available, unavoidable complications occasionally occur. If you have any problems or questions after discharge, please call your doctor. ACTIVITY You may resume your regular activity but move at a slower pace for the next 24 hours. Take frequent rest periods for the next 24 hours. Walking will help expel (get rid of) the air and reduce the bloated feeling in your abdomen. No driving for 24 hours (because of the anesthesia (medicine) used during the test). You may shower. Do not sign any important legal documents or operate any machinery for 24 hours (because of the anesthesia used during the test). NUTRITION Drink plenty of fluids. You may resume your normal diet. Begin with a light meal and progress to your normal diet. Avoid alcoholic beverages for 24 hours or as instructed by your caregiver. MEDICATIONS You may resume your normal medications unless your caregiver tells you otherwise. WHAT YOU CAN EXPECT TODAY You may experience abdominal discomfort such as a feeling of fullness or gas pains. FOLLOW-UP Your doctor will discuss the results of your test with you. SEEK IMMEDIATE MEDICAL ATTENTION IF ANY OF THE FOLLOWING OCCUR: Excessive nausea (feeling sick to your stomach) and/or vomiting. Severe abdominal pain and distention (swelling). Trouble swallowing. Temperature over 100 F (37.8 C). Rectal bleeding or vomiting of blood. Document Released: 03/29/2005 Document Re-Released: 02/06/2007 [employer] Patient Information 2009 [employer]. Follow Up Care 10/06/2023 10:31:55 With:Murray MCINTYRE, JARVIS Snyder, [facility] Address: When: Unknown Comments:Call for any problems. Office will call to schedule follow up appointment [facility] 12-22-2023 Note Endoscopy Care After Procedure Please read the instructions outlined below and refer to this sheet in the next few weeks. These discharge instructions provide you with general information on caring for yourself after you leave the hospital. Your doctor may also give you specific instructions. While your treatment has been planned according to the most current medical practices available, unavoidable complications occasionally occur. If you have any problems or questions after discharge, please call your doctor. ACTIVITY ? You may resume your regular activity but move at a slower pace for the next 24 hours. ? Take frequent rest periods for the next 24 hours. ? Walking will help expel (get rid of) the air and reduce the bloated feeling in your abdomen. ? No driving for 24 hours (because of the anesthesia (medicine) used during the test). ? You may shower. ? Do not sign any important legal documents or operate any machinery for 24 hours (because of the anesthesia used during the test). NUTRITION ? Drink plenty of fluids. ? You may resume your normal diet. ? Begin with a light meal and progress to your normal diet. ? Avoid alcoholic beverages for 24 hours or as instructed by your caregiver. MEDICATIONS ? You may resume your normal medications unless your caregiver tells you otherwise. WHAT YOU CAN EXPECT TODAY ? You may experience abdominal discomfort such as a feeling of fullness or ?gas? pains. FOLLOW-UP ? Your doctor will discuss the results of your test with you. seek immediate medical attention if any of the following occur: ? Excessive nausea (feeling sick to your stomach) and/or vomiting. ? Severe abdominal pain and distention (swelling). ? Trouble swallowing. ? Temperature over 100 F (37.8? C). ? Rectal bleeding or vomiting of blood. Document Released: 03/29/2005 Document Re-Released: 02/06/2007 [employer]? Patient Information ?2009 [employer]. Gastroenterology Hiatal Hernia A hiatal hernia occurs when part of the stomach slides above the muscle that separates the abdomen from the chest (diaphragm). A person can be born with a hiatal hernia (congenital), or it may develop over time. In almost all cases of hiatal hernia, only the top part of the stomach pushes through the diaphragm. Many people have a hiatal hernia with no symptoms. The larger the hernia, the more likely it is that you will have symptoms. In some cases, a hiatal hernia allows stomach acid to flow back into the tube that carries food from your mouth to your stomach (esophagus). This may cause heartburn symptoms. The development of heartburn symptoms may mean that you have a condition called gastroesophageal reflux disease (GERD). What are the causes? This condition is caused by a weakness in the opening (hiatus) where the esophagus passes through the diaphragm to attach to the upper part of the stomach. A person may be born with a weakness in the hiatus, or a weakness can develop over time. What increases the risk? This condition is more likely to develop in: ? Older people. Age is a major risk factor for a hiatal hernia, especially if you are over the age of 50. ? women. ? People who are overweight. ? People who have frequent constipation. What are the signs or symptoms? Symptoms of this condition usually develop in the form of GERD symptoms. Symptoms include: ? Heartburn. ? Upset stomach (indigestion). ? Trouble swallowing. ? Coughing or wheezing. Wheezing is making high-pitched whistling sounds when you breathe. ? Sore throat. ? Chest pain. ? Nausea and vomiting. How is this diagnosed? This condition may be diagnosed during testing for GERD. Tests that may be done include: ? X-rays of your stomach or chest. ? An upper gastrointestinal (GI) series. This is an X-ray exam of your GI tract that is taken after you swallow a chalky liquid that shows up clearly on the X-ray. ? Endoscopy. This is a procedure to look into your stomach using a thin, flexible tube that has a tiny camera and light on the end of it. How is this treated? This condition may be treated by: ? Dietary and lifestyle changes to help reduce GERD symptoms. ? Medicines. These may include: ? Tnia-zid-rhepsir antacids. ? Medicines that make your stomach empty more quickly. ? Medicines that block the production of stomach acid (H2 blockers). ? Stronger medicines to reduce stomach acid (proton pump inhibitors). ? Surgery to repair the hernia, if other treatments are not helping. If you have no symptoms, you may not need treatment. Follow these instructions at home: Lifestyle and activity ? Do not use any products that contain nicotine or tobacco. These products include cigarettes, chewing tobacco, and vaping devices, such as e-cigarettes. If you need help quitting, ask your health care provider. ? Try to achieve and maintain a healthy body weight. ? Avoid putting pressure on your abdomen. Anythin (more content not included)... [facility] 09-20-2023 Note Admission and Discha rge Information Admit Date/Time:09/16/2023 17:00 Admitting Physician - Nathaniel Mathews DO Admit Date/Time:09/16/2023 17:00 Admitting Physician - Nathaniel Mathews DO. Admitting Diagnoses: Discharge Diagnoses 1. Symptomatic anemia, Low hemoglobin 2. Iron deficiency anemia, 09/16/2023 3. GERD (gastroesophageal reflux disease), 09/16/2023 4. HTN (hypertension), 09/16/2023 5. Pure hypercholesterolemia, 09/16/2023 Abnormal diagnostic test, 09/16/2023 Weakness or fatigue, 09/16/2023 Procedure History Colonoscopy (2021), Cataract surgery, Cholecystectomy, Glaucoma surgery, Hysterectomy, KAZ BSO - Total abdominal hysterectomy and bilateral salpingo-oophorectomy. Hospital Course 73-year-old female with past medical history of GERD, hypertension, hiatal hernia presented to ER on 09/16 at the request of PCP due to abnormal labs. Patient states she saw her PCP prior to arrival and was complaining of hot flashes and weakness gradually for 1 to 2 months. On lab work patient had low hemoglobin at 6.4. Patient states she has never had anemia before. Patient denies any history of fever chills, hematochezia, or other bleeding. Patient states she does have hiatal hernia and was last scoped many years ago. In ER patient was found to have hemoglobin of 6.1 and was transfused 2 units. Discussed CODE STATUS with patient she would like to be full code. Admitted to the hospital for admission. GI was consulted. She underwent endoscopy which showed Large hiatal hernia, Violeta ulcers in the herniated stomach with minimal amount of old blood. 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 Biopsies were not taken given the recent GI bleed with adherent clot. Evidence of previous scars in the body of the stomach likely from previous ulcers or erosions that healed up, random biopsies were taken to rule out H. pylori and Small area with minimal oozing in the distal duodenum, could represent oozing AVM, treated with APC. Colonoscopy showed internal hemorrhoids. Hemoglobin and hematocrit are stable. Patient discharged home in stable condition. She was sent on ferrous sulfate twice daily and vitamin C. Follow-up with her primary physician. Follow-up with GI as outpatient for biopsy results. Procedures and Treatment Provided Colonoscopy ( Auth (Verified) ) Patient: STAS HUANG Age: 73 years Sex: Female : 1950 Associated Diagnoses: None Author: Taty Gao MD Pre-Procedure Procedure Date 09/18/2023 10:08:00 . Procedure Type: Colonoscopy. Procedure provider Performed by Taty Gao MD. Current history and physical Documented on chart. Colorectal neoplasm risk assessment Average risk. Informed Consent After discussing the rationale, risks and benefits, and alternatives to this procedure, the patient provided signed consent for the procedure. Pre-procedure diagnosis: Diagnostic: Iron deficiency anemia. Medications Anticoagulant/antiplatelet None. ASA Classification: Class III. . Monitoring: See anesthesia record. . Procedure The procedure was performed in the hospital. See anesthesia record for sedation given during procedure. The patient was positioned starting in the left lateral decubitus position. Endoscope type used was an adult-size. The endoscope was lubricated then introduced through the anus. The scope was advanced to the terminal ileum. No difficulties encountered during the procedure. The bowel preparation quality was inadequate. The patient tolerated the procedure well. Last colonoscopy: 2021, report not available Extent reached: 13 min Time of withdrawal: 8 min Findings 1. Large internal hemorrhoids 2. Pancolonic diverticulosis, otherwise normal colon 3. Normal terminal ileum Images Procedure images: Rec1_hd_video__13_1 3_333.jpg Rec1_hd_video__13_0 7_007.jpg Rec1_hd_video___4 6_950.jpg Rec1_hd_video___3 5_421.jpg Rec1_hd_video___4 7_399.jpg Rec1_hd_video__08_3 4_268.jpg Rec1_hd_video___2 4_462.jpg Rec1_hd_video__T10_06_5 8_195.jpg Rec1_hd_video_2023__T09_56_[id number] 5_159.jpg . Post-Procedure Complications: none. Estimated blood loss: none. Specimens: none. Devices/ implants: none left in place. Impression and Plan 1. Large internal hemorrhoids 2. Pancolonic diverticulosis, otherwise normal colon 3. Normal terminal ileum Recommendations: Repeat colonoscopy:: Given the prep was suboptimal, this should not be considered as a screening colonoscopy, repeat colonoscopy as recommended per previous colonoscopy in 2021 . Follow-up:: in clinic with me in 1 to 2 months. Diet:: Previous. Medication resumption:: Continue current medications, Avoid NSAIDs. Return to activities:: After 24 hours. Education and Follow-up: Counseled: Patient, Family. [1] EGD (more content not included)... [facility] Comment on above: Result Comment: Elec tronically Signed By: OPAL MCINTYRE, Emily\.br\Date and Time Signed: 09/20/23 11:11 EST 09-19-2023 Evaluation + Plan note Extrac sarah from: Title:Discharge Note Author:Emily JOSEPH MD Heri e:09/19/23 Discharge To, Anticipated II - Home independently Discharged to - Home independently Transported by, Anticipated - Family Discharge Diet(s): Low Sodium- 2000 mg (09/19/23 11:55:00) Prescriptions atorvastatin 10 mg Tab, 10 mg= 1 tab(s), Oral, Bedtime, 3 refills Carafate 1 gram Tab, 2 gm= 2 tab(s), Oral, QID cyclobenzaprine 10 mg Tab, 10 mg= 1 tab(s), Oral, TID, PRN, 1 refills ferrous sulfate 325 mg Tab, 325 mg= 1 tab(s), Oral, BID, 1 refills hydrochlorothiazide-losartan 12.5 mg-100 mg oral tablet, 1 tab(s), Oral, Daily, 3 refills omeprazole 40 mg Cap-DR, 40 mg= 1 cap(s), Oral, Daily, 1 refills Protonix 40 mg Tab-DR, 40 mg= 1 tab(s), Oral, Daily, 1 refills Vitamin C 500 mg Tab, 500 mg= 1 tab(s), Oral, BIDAC Home Aspir-Low, 81 mg, Oral, Daily betamethasone Top valerate 0.1% Crm 15 gram, 1 karen, Topical, BID Fish Oil 500 mg oral capsule, 1, Oral, BID Misc Medication, magnesium complex 400 mg, Daily Multi Vitamin+, Daily Vitamin D3 5000 intl units (125 mcg) oral tab, Oral, Daily With When Contact Information Daquan Hager In 0 days [address] [place] [phone] [facility] (2) Additional Instructions: Peptic Ulcer Eating Plan Peptic Ulcer, [id number] Discharge time >30 min Extracted from: Title:ANES Post-operative Note---General Author: Joel Rooney Jr, DO Date:09/18/23 Plan Transfer/Discharge: Transfer/Discharge Discharge when meets criteria ( To home ). Extracted from: Title:ANES Pre-operative Note 2022 Author:Joel Rooney Jr, DO Date:09/18/23 Plan [place] [employer] (ASA) physical status classification: Class III, E. Anesthetic Preoperative Plan: Anesthesia General. Extracted from: Title:APSO Note Author:Nathaniel Mathews DO Heri e:09/18/23 1. Symptomatic anemia (D64.9 : Anemia, unspecified) Improved status post blood transfusion GI consulted hx of hiatal hernia Iron 300 mg for 3 days Likely EGD and colonoscopy on 09/18, Ordered: [facility] Care/Day Moderate 35 Minutes 00202 2. Iron deficiency anemia (D50.9: Iron deficiency anemia, unspecified) IV iron 300 mg for 3 days Trend 3. GERD (gastroesophageal reflux disease) (K21.9: Gastro-esophageal reflux disease without esophagitis) PPI BID 4. HTN (hypertension) (I10: Essential (primary) hypertension) monitor HCTZ/losartan 5. Pure hypercholesterolemia (E78.00: Pure hypercholesterolemia, unspecified) statin Orders: polyethylene glycol 3350 with electrolytes, 4,000 mL, Powder, Oral, Once, Stop date 09/17/23 16:00:00 EST, Routine, Start date 09/17/23 16:00:00 EST, can start this evening Basic Metabolic Panel CBC w/ Auto Diff CBC w/ Auto Diff Clear Liquid Diet eGFR NPO Diet Occupational Therapy Evaluate Patient, Develop a Plan of Care and Implement Plan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 09/16/23 19:13 [id number] [facility] note Future Appointments Appointment Date:04/27/2024 09:30:00 AM Scheduled Provider: Location:[facility] Appointment Type:FM Medicare Wellness Subsequent Diagnostic Tests Pending * HCV Antibody RFX to Quant PCR [facility] Future App[facility]ments Appointment Date:04/27/2024 09:30:00 AM Scheduled Provider: Location:[facility] Appointment Type:FM Medicare Wellness Subsequent [facility] Future Appointments Appointment Date:04/19/2024 02:30:00 PM Scheduled Provider: Location:[facility] Appointment Type:FM Medicare Wellness Subsequent [facility] Future Appointments Appointment Date:04/09/2024 10:45:00 AM Scheduled Provider:Taty Gao MD Location:[facility] [facility] Appointment Type:[facility] Follow Up Appointment Date:04/19/2024 02:30:00 PM Scheduled Provider: Location:[facility] Appointment Type:FM Medicare Wellness Subsequent Future Scheduled Tests Laboratory* TIBC Calculated 01/09/24 * CBC w/ Auto Diff 01/10/24 * Comprehensive Metabolic Panel 01/10/24 * Ferritin 01/09/24 * Folate Level 01/09/24 * Iron Level 01/09/24 * Vitamin B12 Level 01/09/24 [facility] Evaluation + Plan note Future Appointments Appointment Date:04/09/2024 10:45:00 AM Scheduled Provider:Taty Gao MD Location:[facility] [facility] Appointment Type:[facility] Follow Up Appointment Date:04/19/2024 02:30:00 PM Scheduled Provider: Location:[facility] Appointment Type: Medicare Wellness Subsequent Diagnostic Tests Pending * Urine Culture 03/14/24 Future Scheduled Tests Laboratory* TIBC Calculated 01/09/24 * CBC w/ Auto Diff 01/10/24 * Comprehensive Metabolic Panel 01/10/24 * Ferritin 01/09/24 * Folate Level 01/09/24 * Iron Level 01/09/24 * Vitamin B12 Level 01/09/24 [facility] Future Appointments Appointment Date:04/19/2024 02:30:00 PM Scheduled Provider: Location:[facility] Appointment Type: Medicare Wellness Subsequent Future Scheduled Tests Laboratory* TIBC Calculated 01/09/24 * CBC w/ Auto Diff 01/10/24 * Comprehensive Metabolic Panel 01/10/24 * Ferritin 01/09/24 * Folate Level 01/09/24 * Iron Level 01/09/24 * Vitamin B12 Level 01/09/24 [facility] Evaluation + Plan note Future Appointments Appointment Date:03/15/2025 10:00:00 AM Scheduled Provider:Liana Simental Location:[facility] Appointment Type: Open Appointment Date:04/18/2025 09:30:00 AM Scheduled Provider: Location:[facility] Appointment Type:FM Medicare Wellness Subsequent Future Scheduled Tests Laboratory* TIBC Calculated 01/09/24 * CBC w/ Auto Diff 01/10/24 * Comprehensive Metabolic Panel 01/10/24 * Ferritin 01/09/24 * Folate Level 01/09/24 * Iron Level 01/09/24 * Vitamin B12 Level 01/09/24 [facility] Evaluation noteNo assessment information available [facility] Work Phone: History and physical note Author Violeta Starr [facility] April 26, 2022 9:53am Note Date/Time April 26, 2022 9: 53am [facility] [address] [place] [address] Gastroenterology H&P Signed Patient: Stas Huang MR#: [id number] : 1950 Acct:[id number] Age/Sex: 72 / F Adm Date: 2 Loc: Room: Type: [facility] Attending Dr: Violeta Starr MD Copies to: MD Pham Caldera MD~ Date of Service: 04/26/2022 HISTORY [...] is an appropriate candidate for the procedure. Violeta Starr MD Documented By: Violeta Starr MD 04/26/22 0952 Signed By: <Electronically signed by Violeta Starr MD> 04/26/22 0953 [facility] Work Phone: Hospital course Narrative No data available for this section [facility] No data available for this section [facility] No data available for this section [facility] Chief Complaint and Reason for Visit Chief Complaint Screening Screening Chief Complaint M48.02 Chief Complaint M48.02 f/u neck and xray Family History No Family History Records Found Relationship Condition Age at Onset Recorded Date/T vicente Not Specified Diabetes mellitus Unknown Congestive heart failure Unknown family member Malignant neoplasm of ovary Unknown Relationship Condition Age at Onset Recorded Date/T vicente mother Diabetes mellitus Unknown Congestive heart failure Unknown family member Malignant neoplasm of ovary Unknown father Unknown grandparent Malignant neoplasm Unknown mother Unknown Diabetes mellitus Unknown Hypertension Unknown Advance Directives No Advanced Directives Records Found Advance Directive Response Recorded Date/ Time Advance Directives No June 10, 2020 12:14pm Summary Purpose Additional Source Comments Care Teams (unrecognized sec tion and content) Team Status: Inactive Member Role Status Dates Pham Saucedo MD Primary Care Provider Active Violeta Starr MD Attending Provider Active Team Status: Active Member Role Status Dates Pham Saucedo MD Primary Care Provider Active Team Status: Active Member Role Status Dates Liana Wiggins CLIMATOLOGY PROFESSOR-C Primary Care Provider Active Team Status: Inactive Member Role Status Dates Liana Wiggins NP-C Primary Care Provider Active Start: March 31, 2024 End: March 31, 2024 Bethany Candelario APRN Attending Provider Active Start: March 31, 2024 End: March 31, 2024 Team Status: Inactive Member Role Status Dates Bethany Candelario APRN Attending Provider Active Start: April 12, 2024 End: April 12, 2024 Liana Wiggins NP-Lynn Primary Care Provider Active Start: April 12, 2024 End: April 12, 2024 INFORMATION SOURCE (unrecogn ized section and content) DATE CREATED AUTHOR 06/04/2022 [facility] DATE CREATED AUTHOR AUTHOR'S ORGANIZ ATION 03/18/2024 [facility] DATE CREATED AUTHOR AUTHOR'S ORGANIZ ATION 03/19/2024 [facility] DATE CREATED AUTHOR AUTHOR'S ORGANIZ ATION 04/02/2024 [facility] DATE CREATED AUTHOR AUTHOR'S ORGANIZ ATION 04/20/2024 [facility] DATE CREATED AUTHOR AUTHOR'S ORGANIZ ATION 04/22/2024 [facility] DATE CREATED AUTHOR AUTHOR'S ORGANIZ ATION 05/03/2024 [facility] Goals (unrecognized section and content) Goals may be documented in a n alternate section FOR RECORDS PERTAINING TO PATIENTS WHO ARE [...] BE BASED ON THE PRIMARY CLINICAL RECORDS. [facility] marker.to [facility]. provides no warranty or guarantee of the accuracy or completeness of information in this document.
--- NOTE | 2024-10-01 14:56 | CT_ITS ---
The [address] [address] Patient Name: ZULLY HUANG MRN: [id number] date: 1950 Sex: F Assigned Patient Location: CT Current Patient Location: CT Accession/Order Number: [id number] Exam Date: 10/01/2024 14:54 Report Date: 10/01/2024 15:25 At the request of: JUSTIN SANCHEZ Procedure: CT head/brain wo con EXAMINATION: CT head/brain wo con HISTORY: Fall, Head Injury COMPARISON: No relevant comparison available. TECHNIQUE: Axial CT images were obtained without IV contrast. Dose reduction techniques were achieved by using automated exposure control and/or adjustment of mA and/or kV according to patient size and/or use of iterative reconstruction technique. FINDINGS: BRAIN: No edema, hemorrhage, mass, acute infarction, or inappropriate atrophy. CSF SPACES: No hydrocephalus, subarachnoid hemorrhage, or mass. Appropriate for age. SKULL: No fracture, mass, or other significant visible lesion. SINUSES: No significant mucosal thickening or fluid on the limited views. ORBITS: No appreciable abnormality on the limited views. OTHER: Negative CT/CT head/brain wo con IMPRESSION: 1. No intercranial hemorrhage or appreciable acute abnormality. 2. Age consistent mild chronic changes. 3. No fracture of the calvarium or scalp hematoma. Electronically authenticated by: JIMI BARRIOS Date: 10/01/2024 15:25
== END 2024-10-01 14:50 | disposition home or self-care (01) ==
LOC: CT 14:49
PROVIDERS: PCP Family Medicine; Visit Provider Nurse Practitioner
DX: S09.90XA Unspecified injury of head, initial encounter (principal); Z91.81 History of falling
CPT/HCPCS: 70450